=== PATIENT | male | born 1955 | race Caucasian/White ===

== ENCOUNTER → 2017-11-21 | Outpatient (CLI) | payer BC ==
--- NOTE | 2017-11-21 08:00 | US ---
EXAMINATION TYPE: US venous doppler duplex LE LT DATE OF EXAM: 11/21/2017 7:37 AM COMPARISON: NONE CLINICAL HISTORY: R60.0 Edema Left leg. Edema left leg for 1 year, getting worse within last month SIDE PERFORMED: left TECHNIQUE: The lower extremity deep venous system is examined utilizing real time linear array sonog frankie with graded compression, doppler sonography and color-flow sonography. VESSELS IMAGED: External Iliac Vein (EIV) Common Femoral Vein Deep Femoral Vein Greater Saphenous Vein * Femoral Vein Popliteal Vein Small Saphenous Vein * Proximal Calf Veins (* superficial vessels) Left Leg: No evidence of DVT as visualized. Complex anechoic area left popliteal fossa; 7.6 x 1.8 x 3 .9cm compatible with a popliteal cyst. IMPRESSION: 1. No ultrasound evidence deep venous thrombosis left lower extremity. 2. Left Popliteal cyst.
== END | disposition home or self-care (01) ==
LOC: RADUSWWP 07:09
PROVIDERS: ATTEND Family Medicine
DX: M71.22 Synovial cyst of popliteal space [Baker], left knee (principal)

== ENCOUNTER → 2018-05-18 | Outpatient (CLI) | payer BC ==
--- NOTE | 2018-05-19 08:03 | CTL ---
EXAMINATION TYPE: CT Low Dose Lung DATE OF EXAM ORDERED: 05/18/2018 HISTORY: Long-term tobacco use. Lung cancer screening CT DLP: [address] CTDI: 2.6 mGy Automated exposure control for dose reduction was used. SCREENING VISIT: Initial study COMPARISON: None TECHNIQUE: Low dose computed tomography scan was performed through the chest at 1 mm thick sections a nd reconstructed images in the coronal plane at [address] DIAGNOSTIC QUALITY: Satisfactory FINDINGS: LUNG NODULES: Present, detailed below: There is 6 x 5 mm Slightly irregular solid nodule right middle lobe axial image 178. There is 4 x 3 mm lingular solid axial image 170. There is 5 x 3 mm solid nodule anterior aspect right upper lobe axial image 107. There is 2 to 3 mm nodule lingula abutting the fissure axial image 189. LUNGS: COPD: Severity: Moderate Fibrosis: Severity: Moderate to severe biapical parenchymal scarring. Lymph nodes: No greater than 1 cm adenopathy Other findings: None BILATERAL PLEURAL SPACE: Effusion: None Calcification: None Thickening: Mild focal thickening right midlung lateral aspect on coronal images. Pneumothorax: None HEART: Heart Size: Normal Coronary calcification: None Pericardial effusion: None OTHER FINDINGS: Upper abdomen: None Bony thorax: Mild to moderate multilevel spurring centered in the mid thoracic spine Supraclavicular region: None Other: None IMPRESSION: Emphysematous change with scattered nodules measuring up to 6 x 5 mm as detailed above. FOLLOW UP CT CHEST RECOMMENDATION: Six-month follow-up low dose lung screening CT. CT LUNG RAD: Lung-Rad 3 Probably Benign
== END ==
LOC: RADCTMAIN 16:02
PROVIDERS: ATTEND Family Medicine
DX: Z12.2 Encounter for screening for malignant neoplasm of respiratory organs (principal); J43.9 Emphysema, unspecified; R91.8 Other nonspecific abnormal finding of lung field; Z87.891 Personal history of nicotine dependence

== ENCOUNTER → 2019-04-09 | Outpatient (CLI) | payer BC ==
--- NOTE | 2019-04-09 18:20 | CT ---
EXAMINATION TYPE: CT chest w con DATE OF EXAM: 04/09/2019 COMPARISON: 05/18/2018 HISTORY: Lung nodule CT DLP: 300.3 mGycm Automated exposure control for dose reduction was used. CONTRAST: CT scan of the chest is performed with IV Contrast, patient injected with 100 mL of Isovue 300. FINDINGS: LUNGS: Diffuse emphysematous changes are seen with no focal pneumonia, pleural effusion, or pneumotho rax. No overt failure. Biapical pleural thickening noted. There is a stable 5 x 3 mm nodule right upper lobe. There is a stable 4 x 3 mm left upper lobe lingular segment nodule. There is a stable 6 x 5 mm nodule right middle lobe. There is a stable 2 to 3 mm nodule lingular segment left upper lobe adjacent to the fissure. MEDIASTINUM: There are no greater than 1 cm hilar or mediastinal lymph nodes. No pericardial effusi on is seen. The heart is enlarged. OTHER: Hypertrophic and degenerative change spine. Nonspecific thickening of the left adrenal gland stable. There is an indeterminate 6 mm lesion in the dome of the liver left lobe unchanged from previ ous exam. IMPRESSION: 1. Diffuse emphysematous changes. 2. Stable pulmonary nodules unchanged from prior exam. Recommended continued documentation of stabili ty over 2 years. 3. Stable indeterminate lesion 6 mm too small to characterize dome of the liver
== END | disposition home or self-care (01) ==
LOC: RADCTMAIN 16:59
PROVIDERS: ATTEND Family Medicine
DX: J43.9 Emphysema, unspecified (principal); R91.1 Solitary pulmonary nodule
CPT/HCPCS: 71260; Q9967

== ENCOUNTER → 2019-12-28 | Outpatient (CLI) | payer BC ==
[2019-12-28 15:40] LABS: Appearance,Urine Clear (Clear); Bilirubin,Urine Negative (Negative); Blood,Urine Negative (Negative); Color,Urine Yellow; Glucose,Urine (UA) Negative (Negative); Ketones,Urine Negative (Negative); Leukocyte Esterase,Urine Negative (Negative); Nitrite,Urine Negative (Negative); PH, Urine 6.5 (5.0-8.0); Protein,Urine Negative (Negative); Specific Gravity,Urine 1.016 (1.001-1.035); Urobilinogen,Urine <2.0 mg/dL (<2.0)
[2019-12-28 15:41] LABS: Basophils % (A) 0 %; Eosinophils # (A) 0.1 k/uL (0-0.7); Eosinophils % (A) 1 %; HCT 49.8 % (39.0-53.0); HGB 15.8 gm/dL (13.0-17.5); Lymphocytes # (A) 1.3 k/uL (1.0-4.8); Lymphocytes % (A) 13 %; MCH 29.9 pg (25.0-35.0); MCHC 31.8 g/dL (31.0-37.0); MCV 94.1 fL (80.0-100.0); Mean Platelet Volume 7.7; Monocytes # (A) 0.6 k/uL (0-1.0); Monocytes % (A) 6 %; Neutrophils # (A) 7.4 k/uL (1.3-7.7); Neutrophils % (A) 76 %; Platelet Count 291 k/uL (150-450); RBC 5.29 m/uL (4.30-5.90); RDW 12.7 % (11.5-15.5); WBC 9.7 k/uL (3.8-10.6)
[2019-12-28 23:47] LABS: African American GFR (CKD) 93.1 (60.0-200.0); Albumin 4.7 g/dL (3.80-4.90); Albumin/Globulin Ratio 1.57 (1.60-3.17); Anion Gap 13.7 mmol/L (4.00-12.00); Carbon Dioxide 26.3 mmol/L (21.6-31.8); Non-African American GFR(CKD) 80.3 (60.0-200.0); Potassium 3.9 mmol/L (3.5-5.5); Total Bilirubin 0.8 mg/dL (0.2-1.2); Total Protein 7.7 g/dL (6.2-8.2)
== END | disposition home or self-care (01) ==
LOC: LABWHC1 13:43
PROVIDERS: ATTEND Psychiatry & Neurology Neurology
DX: G35 Multiple sclerosis (principal)
CPT/HCPCS: 36415; 80053; 81003; 85025

== ENCOUNTER 2020-11-20 10:48 | Inpatient (IN) | payer BC ==
[2020-11-20] MEDS ORDERED: ACETAMINOPHEN TAB 500 MG TAB PO STA (11:06)
[2020-11-20] MEDS ORDERED: methylPREDNISolone SOD SUCCI 125 MG/2 ML VIAL IV STA (11:06)
[2020-11-20] MEDS ORDERED: SODIUM CHLORIDE 0.9% 1,000 ML IV STA ×2 (11:06)
[2020-11-20] MEDS ORDERED: cefTRIAXone IN SWFI 1,000 MG/10 ML SYRINGE IVP STA (11:07)
--- NOTE | 2020-11-20 11:14 | ED ---
General Adult HPI - General Chief complaint: Recheck/Abnormal Lab/Rx Stated complaint: MS Exacerbation Time Seen by Provider: 11/20/20 10:57 Source: patient, RN notes reviewed, old records reviewed Mode of arrival: ambulatory Limitations: no limitations - History of Present Illness Initial comments: 65-year-old history of MS. Patient is unable to ambulate at baseline, he is able to stand and pivot but uses a wheelchair predominantly. He's had increased weakness today as well as fatigue. He is noted to be febrile at 103 upon arrival. He denies cough or dyspnea. Denies URI symptoms. Denies abdominal pain nausea vomiting. Denies dysuria or hematuria. He states he does have some difficulty urinating. He has been vaccinated against coronavirus approximately 3 or 4 weeks ago receiving his second vaccine. He denies a known exposure to coronavirus. - Related Data Home Medications Medication Instructions Recorded Confirmed Aspirin EC [Ecotrin Low Dose] 81 mg PO DAILY 11/20/20 11/20/20 Baclofen 10 mg PO 5XD 11/20/20 11/20/20 Cholecalciferol (Vitamin D3) 125 mcg PO DAILY 11/20/20 11/20/20 [Vitamin D3 (5000 Iu)] Furosemide [Lasix] 60 mg PO DAILY 11/20/20 11/20/20 Lubiprostone [Amitiza] 24 mcg PO BID 11/20/20 11/20/20 Magnesium Oxide [Mag-Ox] 250 mg PO DAILY 11/20/20 11/20/20 Multivitamins, Thera [Multivitamin 1 tab PO DAILY 11/20/20 11/20/20 (formulary)] Ocrevus(Unknown) 1 dose IV Q180D 11/20/20 11/20/20 Oxybutynin Chloride [Ditropan XL] 5 mg PO DAILY 11/20/20 11/20/20 Potassium Chloride ER [K-Dur 10] 10 meq PO DAILY 11/20/20 11/20/20 Allergies Allergy/AdvReac Type Severity Reaction Status Date / Time No Known Allergies Allergy Verified 11/20/20 12:10 Review of Systems ROS Statement: Those systems with pertinent positive or pertinent negative responses have been documented in the HPI. ROS Other: All systems not noted in ROS Statement are negative. Past Medical History Past Medical History: Musculoskeletal Disorder Additional Past Medical History / Comment(s): MS History of Any Multi-Drug Resistant Organisms: None Reported Past Surgical History: No Surgical Hx Reported Past Psychological History: No Psychological Hx Reported Smoking Status: Former smoker Past Alcohol Use History: Occasional Past Drug Use History: None Reported General Exam Limitations: no limitations General appearance: alert, in distress Head exam: Present: atraumatic, normocephalic Eye exam: Present: normal appearance, PERRL ENT exam: Present: mucous membranes dry Neck exam: Present: normal inspection. Absent: tenderness, meningismus Respiratory exam: Present: respiratory distress, rhonchi, decreased breath sounds Cardiovascular Exam: Present: normal rhythm, tachycardia GI/Abdominal exam: Present: soft, distended. Absent: tenderness, guarding, rebound Extremities exam: Present: pedal edema (Bilateral edema and erythema. He has skin breakdown at the first digit left foot with surrounding erythema. No purulence. No fluctuance.) Neurological exam: Present: alert, oriented X3, other (Strength throughout decreased, upper extremities are contracted) Psychiatric exam: Present: normal affect, normal mood Skin exam: Present: warm, dry, intact. Absent: cyanosis, diaphoretic Course Vital Signs 11/20/20 11/20/20 11/20/20 10:49 10:57 13:56 Temperature 103.1 F H 98.9 F Pulse Rate 129 H 82 Respiratory 22 18 Rate Blood Pressure 140/79 141/74 O2 Sat by Pulse 88 L 90 L 95 Oximetry EKG Findings - EKG Comments: EKG Findings:: EKG: Sinus tachycardia, rate of 127, TX interval 134, QRS duration 82, QTC [address] segment elevation. Baseline tremor artifact. Medical Decision Making - Medical Decision Making 65-year-old male with increased weakness history of MS. Patient found to be febrile 103 in the emergency department. He has chest x-ray which shows some fibrotic change, and no focal pneumonia. He has a leukocytosis of 15.9. Minimal lactic acid of 2.5. Coronavirus is negative. Urinalysis pending. He does have a bilateral lower extremity edema and some bilateral warmth as well as covered for cellulitis. Case discussed with Dr. Greco who will admit. Neurology placed on consult for MS exacerbation. - Lab Data Result diagrams: 11/20/20 11:30 11/20/20 11:30 Lab Results 05/24/21 05/24/21 05/24/21 Range/Units 11:30 11:30 11:30 WBC 15.9 H (3.8-10.6) k/uL RBC 4.64 (4.30-5.90) m/uL Hgb 14.5 (13.0-17.5) gm/dL Hct 42.1 (39.0-53.0) % MCV 90.6 (80.0-100.0) fL MCH 31.2 (25.0-35.0) pg MCHC 34.4 (31.0-37.0) g/dL RDW 12.7 (11.5-15.5) % Plt Count 247 (150-450) k/uL MPV 7.8 Neutrophils % 95 % Lymphocytes % 2 % Monocytes % 3 % Eosinophils % 1 % Basophils % 0 % Neutrophils # 15.0 H (1.3-7.7) k/uL Lymphocytes # 0.3 L (1.0-4.8) k/uL Monocytes # 0.4 (0-1.0) k/uL Eosinophils # 0.1 (0-0.7) k/uL Basophils # 0.0 (0-0.2) k/uL Sodium 137 (137-145) mmol/L Potassium 4.5 (3.5-5.1) mmol/L Chloride 103 (98-107) mmol/L Carbon Dioxide 25 (22-30) mmol/L Anion Gap 9 mmol/L BUN 23 H (9-20) mg/dL Creatinine 0.90 (0.66-1.25) mg/dL Est GFR (CKD-EPI)AfAm >90 (>60 ml/min/1.73 sqM) Est GFR (CKD-EPI)NonAf >90 (>60 ml/min/1.73 sqM) Glucose 97 (74-99) mg/dL Lactic Ac Sepsis Rflx Plasma Lactic Acid Waldemar (0.7-2.0) mmol/L Calcium 9.7 (8.4-10.2) mg/dL Total Bilirubin 0.7 (0.2-1.3) mg/dL AST 32 (17-59) U/L ALT 21 (4-49) U/L Alkaline Phosphatase 111 (38-126) U/L Total Protein 7.5 (6.3-8.2) g/dL Albumin 4.6 (3.5-5.0) g/dL Urine Color Yellow Urine Appearance Clear (Clear) Urine pH 7.5 (5.0-8.0) Ur Specific Disney 1.017 (1.001-1.035) Urine Protein Negative (Negative) Urine Glucose (UA) Negative (Negative) Urine Ketones 1+ H (Negative) Urine Blood Moderate H (Negative) Urine Nitrite Negative (Negative) Urine Bilirubin Negative (Negative) Urine Urobilinogen <2.0 (<2.0) mg/dL Ur Leukocyte Esterase Small H (Negative) Urine RBC >182 H (0-5) /hpf Urine WBC 7 H (0-5) /hpf Ur Squamous Epith Cells <1 (0-4) /hpf Urine Bacteria Rare H (None) /hpf Hyaline Casts 1 (0-2) /lpf Urine Mucus Rare H (None) /hpf Coronavirus (PCR) (Not Detectd) 11/20/20 11/20/20 11/20/20 Range/Units 11:30 11:30 11:51 WBC (3.8-10.6) k/uL RBC (4.30-5.90) m/uL Hgb (13.0-17.5) gm/dL Hct (39.0-53.0) % MCV (80.0-100.0) fL MCH (25.0-35.0) pg MCHC (31.0-37.0) g/dL RDW (11.5-15.5) % Plt Count (150-450) k/uL MPV Neutrophils % % Lymphocytes % % Monocytes % % Eosinophils % % Basophils % % Neutrophils # (1.3-7.7) k/uL Lymphocytes # (1.0-4.8) k/uL Monocytes # (0-1.0) k/uL Eosinophils # (0-0.7) k/uL Basophils # (0-0.2) k/uL Sodium (137-145) mmol/L Potassium (3.5-5.1) mmol/L Chloride (98-107) mmol/L Carbon Dioxide (22-30) mmol/L Anion Gap mmol/L BUN (9-20) mg/dL Creatinine (0.66-1.25) mg/dL Est GFR (CKD-EPI)AfAm (>60 ml/min/1.73 sqM) Est GFR (CKD-EPI)NonAf (>60 ml/min/1.73 sqM) Glucose (74-99) mg/dL Lactic Ac Sepsis Rflx Y Plasma Lactic Acid Waldemar 2.5 H* (0.7-2.0) mmol/L Calcium (8.4-10.2) mg/dL Total Bilirubin (0.2-1.3) mg/dL AST (17-59) U/L ALT (4-49) U/L Alkaline Phosphatase (38-126) U/L Total Protein (6.3-8.2) g/dL Albumin (3.5-5.0) g/dL Urine Color Urine Appearance (Clear) Urine pH (5.0-8.0) Ur Specific Disney (1.001-1.035) Urine Protein (Negative) Urine Glucose (UA) (Negative) Urine Ketones (Negative) Urine Blood (Negative) Urine Nitrite (Negative) Urine Bilirubin (Negative) Urine Urobilinogen (<2.0) mg/dL Ur Leukocyte Esterase (Negative) Urine RBC (0-5) /hpf Urine WBC (0-5) /hpf Ur Squamous Epith Cells (0-4) /hpf Urine Bacteria (None) /hpf Hyaline Casts (0-2) /lpf Urine Mucus (None) /hpf Coronavirus (PCR) Not Detected (Not Detectd) Disposition Clinical Impression: Exacerbation of multiple sclerosis, Fever, Cellulitis, UTI (urinary tract infection) Disposition: ADMITTED IP TO THIS [facility] Condition: Stable Is patient prescribed a controlled substance at d/c from ED?: No Decision to Admit Reason: Admit from EC Decision Date: 11/20/20 Decision Time: 13:14
--- NOTE | 2020-11-20 11:47 | XR ---
EXAMINATION TYPE: XR chest 1V portable DATE OF EXAM: 11/20/2020 COMPARISON: Chest x-ray 2011. Chest CT April 09, 2019. HISTORY: Fever. TECHNIQUE: Single frontal view of the chest is obtained. FINDINGS: There is no background chronic emphysematous and pulmonary fibrotic changes without suspic ious focal airspace opacity, pleural effusion, or pneumothorax seen bilaterally. The cardiac silhoue tte size is stable and mildly enlarged. The osseous structures are intact. IMPRESSION: Cardiomegaly along with chronic emphysematous and pulmonary fibrotic changes without acu te pulmonary process.
[2020-11-20 11:51] LABS: ALT 21 U/L (4-49); AST 32 U/L (17-59); African American GFR (CKD) >90 (>60 ml/min/1.73 sqM); Albumin 4.6 g/dL (3.5-5.0); Alkaline Phosphatase 111 U/L (38-126); Anion Gap 9 mmol/L; Blood Urea Nitrogen 23 mg/dL (9-20); Calcium 9.7 mg/dL (8.4-10.2); Carbon Dioxide 25 mmol/L (22-30); Chloride 103 mmol/L (98-107); Glucose 97 mg/dL (74-99); Non-African American GFR(CKD) >90 (>60 ml/min/1.73 sqM); Potassium 4.5 mmol/L (3.5-5.1); Sodium 137 mmol/L (137-145); Total Bilirubin 0.7 mg/dL (0.2-1.3); Total Protein 7.5 g/dL (6.3-8.2)
[2020-11-20 11:52] LABS: Basophils % (A) 0 %; Eosinophils # (A) 0.1 k/uL (0-0.7); Eosinophils % (A) 1 %; HCT 42.1 % (39.0-53.0); HGB 14.5 gm/dL (13.0-17.5); Lymphocytes # (A) 0.3 k/uL (1.0-4.8); Lymphocytes % (A) 2 %; MCH 31.2 pg (25.0-35.0); MCHC 34.4 g/dL (31.0-37.0); MCV 90.6 fL (80.0-100.0); Mean Platelet Volume 7.8; Monocytes # (A) 0.4 k/uL (0-1.0); Monocytes % (A) 3 %; Neutrophils % (A) 95 %; Platelet Count 247 k/uL (150-450); RBC 4.64 m/uL (4.30-5.90); RDW 12.7 % (11.5-15.5); WBC 15.9 k/uL (3.8-10.6)
[2020-11-20] MEDS ORDERED: FUROSEMIDE 10 MG/ML 2 ML VIAL IV STA (13:10)
[2020-11-20] MEDS ORDERED: VANCOMYCIN IV PER PHARMACY 1 EACH MISC MISCELLANE PRN (13:10)
[2020-11-20] MEDS ORDERED: NALOXONE 0.4 MG/ML 1 ML VIAL IV PRN (13:14)
[2020-11-20 14:12] LABS: Appearance,Urine Clear (Clear); Bacteria,Urine Rare /hpf; Bilirubin,Urine Negative (Negative); Blood,Urine Moderate (Negative); Color,Urine Yellow; Glucose,Urine (UA) Negative (Negative); Hyaline Casts,Urine 1 /lpf (0-2); Ketones,Urine 1+ (Negative); Leukocyte Esterase,Urine Small (Negative); Mucus,Urine Rare /hpf; Nitrite,Urine Negative (Negative); PH, Urine 7.5 (5.0-8.0); Protein,Urine Negative (Negative); RBC,Urine >182 /hpf (0-5); Specific Gravity,Urine 1.017 (1.001-1.035); Squamous Epithelial Cell,Urine <1 /hpf (0-4); Urobilinogen,Urine <2.0 mg/dL (<2.0); WBC,Urine 7 /hpf (0-5)
[2020-11-20] MEDS: VANCOMYCIN 1,500 MG in SODIUM CHLORIDE 0.9% 250 ML IVPB SCH (14:26)
--- NOTE | 2020-11-20 16:20 | P.CNNES ---
History of Present Illness Consult date: 11/20/20 Requesting physician: Haris Tobar Reason for Consult: MS exacerbation History of Present Illness: This is a 65-year-old gentleman with medical history of multiple sclerosis (diagnosed in 2011) who presented emergency department on 11/20/2020 for geralized weakness, fatigue and feeling warm. Patient is unable to ambulate at baseline uses and a powered wheelchair predominantly. He said for the last 3 weeks he is having the lower extremity edema and that's the worsening and then the today he went to work in which he looks up 4:00 in the morning this is usual time and then when he was at work he felt his whole body was weak fatigue and unable to move his that extremities. Patient uses a powered wheelchair and able to maneuver with his hands. Today he noticed that he could not move his upper extremities. Per the patient as she felt he had increased tone that is worse than baseline of the upper extremity. Patient denies any visual disturbance, difficulty getting his words out, swallowing as mentioned earlier the patient felt warm. Patient denies of headache, nausea or vomiting. Patient denies any sick contacts. Per the patient his lower extremities are warm and seem red. Currently he felt strength is better than prior to initial presentation. Regarding his baseline strength he has more strength of the upper extremity than the lower and mostly it's the distal upper extremities while the lower he has minimal movement. He'll able to move his toes but not much of his strength in the lower extremities at. He has numbness tingling of bilateral upper and lower extremity but mostly it slower than the upper. He is supported standing up on the chair. Patient is on Ocrevus for his hx of MS and last was in September 04 2020. He follows-up with Dr. Anthony Antonio ([facility] His other home medication are baclofen 10mg, ASA 81mg, Vitamin D3 5000IU, Oxybutynin, Lubiprostone. Some of the workup in the hospital consisted of: Initial vitals: Blood pressure of 140/79, heart rate of 129, temperature of 103.1 Fahrenheit oral, respiratory of 22 and pulse ox of 88% room air. Initial white blood cells 15.9 and it's predominantly neutrophilic. The basic chemistry panel was significant is a plasma lactic vein which was 2.5 otherwise was unremarkable. The calcium was 9.7, serum glucose was 97, AST and ALT are normal. Urinalysis nitrate was negative, leukocyte esterase was small, urine white blood cell as 7 and urine bacteria is rare. Review of Systems Review of system: The 12 point system was reviewed and apparent positive and negative per HPI. Past Medical History Past Medical History: Musculoskeletal Disorder Additional Past Medical History / Comment(s): MS History of Any Multi-Drug Resistant Organisms: None Reported Past Surgical History: No Surgical Hx Reported Past Psychological History: No Psychological Hx Reported Smoking Status: Former smoker Past Alcohol Use History: Occasional Past Drug Use History: None Reported Medications and Allergies Home Medications Medication Instructions Recorded Confirmed Type Aspirin EC [Ecotrin Low Dose] 81 mg PO DAILY 11/20/20 11/20/20 History Baclofen 10 mg PO 5XD 11/20/20 11/20/20 History Cholecalciferol (Vitamin D3) 125 mcg PO DAILY 11/20/20 11/20/20 History [Vitamin D3 (5000 Iu)] Furosemide [Lasix] 60 mg PO DAILY 11/20/20 11/20/20 History Lubiprostone [Amitiza] 24 mcg PO BID 11/20/20 11/20/20 History Magnesium Oxide [Mag-Ox] 250 mg PO DAILY 11/20/20 11/20/20 History Multivitamins, Thera [Multivitamin 1 tab PO DAILY 11/20/20 11/20/20 History (formulary)] Ocrevus(Unknown) 1 dose IV Q180D 11/20/20 11/20/20 History Oxybutynin Chloride [Ditropan XL] 5 mg PO DAILY 11/20/20 11/20/20 History Potassium Chloride ER [K-Dur 10] 10 meq PO DAILY 11/20/20 11/20/20 History Allergies Allergy/AdvReac Type Severity Reaction Status Date / Time No Known Allergies Allergy Verified 11/20/20 12:10 Physical Examination - Vital Signs Vital Signs: Vital Signs Temp Pulse Resp BP Pulse Ox 11/20/20 13:56 98.9 F 82 18 141/74 95 11/20/20 10:57 90 L 11/20/20 10:49 103.1 F H 129 H 22 140/79 88 L Intake and Output 11/20/20 11/20/20 11/20/20 06:59 14:59 22:59 Other: Weight 77.111 kg GENERAL: The patient is lying in bed and is not in acute distress. CHEST: The heart rate is regular rate rhythm. No murmurs to auscultation. No carotid bruit bilaterally. LUNG: Clear to auscultation bilaterally no wheezing noted throughout. Not labored breathing. ABDOMEN/GI: Bowel sounds present in all 4 quadrants. No tenderness to palpation throughout. INTEGUMANTARY: Significant edema of bilateral lower extremities about proximal calf, erythematous and warm to touch. NEUROLOGICAL: Higher mental function: The patient is awake, alert, oriented to self, place and time. Patient is following commands. No aphasia and no neglect. Cranial nerves: The pupils are round, equal and reactive to light and accommodation. Visual new are full to confrontation throughout. Extraocular movement is intact no nystagmus is noted. Facial sensation is normal to touch throughout. The facial strength is normal throughout. Hearing is normal bilaterally to hand rub. Tongue is midline and moved [id number] without any difficulty. No dysarthria is noted. Shoulder shrug is normal bilaterally. Motor: Gait is deferred. The strength is upper extremities is able to lift upp er extremities above gravity (distal strength > proximal). Hand director of in service education are 4-/5. Finger dorsiflexion are weak (baseline). Wrist dorsiflexion are 3/5 bilaterally. Lower extremities are 1 proximally. While toes are dorsiflexion/plantarflexion are 3/5. Increase tone in bilateral upper and lower Cerebellum: Unable to assess. Sensation: Sensation is normal in upper while lower he stated decreased and seemed from distal knees. Reflexes (right/left): 2+ throughout uppers while lower could not assess because of patient's pain. Plantars are upgoing bilaterally. Results Oliver virus PCR was not detected. - Laboratory Findings CBC and BMP: 11/20/20 11:30 11/20/20 11:30 Abnormal Lab Findings: Abnormal Labs 11/20/20 11/20/20 11/20/20 11:30 11:30 11:30 WBC 15.9 H Neutrophils # 15.0 H Lymphocytes # 0.3 L BUN 23 H Plasma Lactic Acid Waldemar Urine Ketones 1+ H Urine Blood Moderate H Ur Leukocyte Esterase Small H Urine RBC >182 H Urine WBC 7 H Urine Bacteria Rare H Urine Mucus Rare H 11/20/20 11:30 WBC Neutrophils # Lymphocytes # BUN Plasma Lactic Acid Waldemar 2.5 H* Urine Ketones Urine Blood Ur Leukocyte Esterase Urine RBC Urine WBC Urine Bacteria Urine Mucus Assessment and Plan Assessment: Generalized weakness and fatigue with elevated fever. Seems pseudo-MS exacerbation from underlying cellulitis. Acute cellulitis of bilateral lower extremities History of multiple sclerosis Plan: In the ED the patient was given 125 mg of Solu-Medrol IV once. I ordered MRI of the brain and the cervical region but patient wants to think about getting the test by tomorrow. If there is any new lesion I'll start the patient on IV steroids for 3-5 days. For now I ordered CT of the head. I consulted physical therapy and occupational therapy. Patient was started on ceftriaxone and vancomycin by the ED team. Infection disease team was consulted. The plan is discussed with the patient and his (Jemima) who is at bedside. Thank you for the consultation. Joseluis Oquendo MD Neuro-Hospitalist Time with Patient: Greater than 30
--- NOTE | 2020-11-20 16:31 | CT ---
EXAMINATION TYPE: CT brain wo con DATE OF EXAM: 11/20/2020 HISTORY: Weakness, history of MS. CT DLP: 1275.4 mGycm. Automated Exposure Control for Dose Reduction was Utilized. TECHNIQUE: CT scan of the head is performed without contrast. COMPARISON: None. FINDINGS: There is no acute intracranial hemorrhage or midline shift identified. There is mild to m oderate diffuse ventricular and sulcal prominence consistent with diffuse age-related cerebral atroph y. There is mild low-attenuation in the periventricular white matter consistent with chronic small v essel ischemic change in patient of this age.. The globes are intact and the visualized sinuses are clear. IMPRESSION: No acute intracranial hemorrhage or midline shift. There is mild to moderate diffuse ag e-related cerebral atrophy and mild chronic small vessel ischemic change noted.
[2020-11-20] MEDS: traMADol 50 MG TAB PO PRN (18:49)
--- NOTE | 2020-11-20 20:52 | P.HPIM ---
History of Present Illness This is a pleasant 65 years old male with past medical history of multiple sclerosis. With resultant weakness in the lower extremity, he is been bound for the last 3 years. He is a patient of Dr. Galarza. 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 He denies chest pain or dyspnea or coughing. No abdominal pain. No nausea vomiting. No diarrhea. No significant urinary complaints Patient is bilateral leg swelling, also complained from constipation Patient has a fever of 103.1 on admission, currently heart rate is 82, breathing rate is 18 and blood pressure 141/74, he is saturating 90% in 2 L oxygen via nasal cannula Labs showed leukocytosis of 15.9 K, rest of CBC, BMP and liver enzymes are unremarkable. Lactic acid slightly up 2.5. Urinalysis is suspicious for infection. Coronary liver is not detected EKG showing sinus tachycardia at [address]-T changes Chest x-ray: No acute process. Per report from radiology Department: cardiomegaly along with chronic emphysematous and pulmonary fibrotic changes without acute pulmonary process Patient is a started on IV vancomycin and ceftriaxone Review of Systems CONSTITUTIONAL: No fever, no malaise, no fatigue. HEENT: No recent visual problems or hearing problems. Denied any sore throat. CARDIOVASCULAR: No orthopnea, PND, no palpitations, no syncope. PULMONARY: No shortness of breath, no cough, no hemoptysis. GASTROINTESTINAL: No diarrhea, no nausea, no vomiting, no abdominal pain. Normoactive bowel sounds. NEUROLOGICAL: No headaches, no weakness, no numbness. HEMATOLOGICAL: Denies any bleeding or petechiae. GENITOURINARY: Denies any burning micturition, frequency, or urgency. MUSCULOSKELETAL/RHEUMATOLOGICAL: Denies any joint pain, swelling, or any muscle pain. ENDOCRINE: Denies any polyuria or polydipsia. Past Medical History Past Medical History: Musculoskeletal Disorder Additional Past Medical History / Comment(s): MS History of Any Multi-Drug Resistant Organisms: None Reported Past Surgical History: No Surgical Hx Reported Past Psychological History: No Psychological Hx Reported Smoking Status: Former smoker Past Alcohol Use History: Occasional Past Drug Use History: None Reported Medications and Allergies Home Medications Medication Instructions Recorded Confirmed Type Aspirin EC [Ecotrin Low Dose] 81 mg PO DAILY 05/24/21 05/24/21 History Baclofen 10 mg PO 5XD 11/20/20 11/20/20 History Cholecalciferol (Vitamin D3) 125 mcg PO DAILY 11/20/20 11/20/20 History [Vitamin D3 (5000 Iu)] Furosemide [Lasix] 60 mg PO DAILY 11/20/20 11/20/20 History Lubiprostone [Amitiza] 24 mcg PO BID 11/20/20 11/20/20 History Magnesium Oxide [Mag-Ox] 250 mg PO DAILY 11/20/20 11/20/20 History Multivitamins, Thera [Multivitamin 1 tab PO DAILY 11/20/20 11/20/20 History (formulary)] Ocrevus(Unknown) 1 dose IV Q180D 11/20/20 11/20/20 History Oxybutynin Chloride [Ditropan XL] 5 mg PO DAILY 11/20/20 11/20/20 History Potassium Chloride ER [K-Dur 10] 10 meq PO DAILY 11/20/20 11/20/20 History Allergies Allergy/AdvReac Type Severity Reaction Status Date / Time No Known Allergies Allergy Verified 11/20/20 12:10 Physical Exam Vitals: Vital Signs Temp Pulse Resp BP Pulse Ox 11/20/20 13:56 98.9 F 82 18 141/74 95 11/20/20 10:57 90 L 11/20/20 10:49 103.1 F H 129 H 22 140/79 88 L Intake and Output 11/19/20 11/20/20 11/20/20 22:59 06:59 14:59 Other: Weight 77.111 kg GENERAL: The patient is alert and oriented x3, not in any acute distress. Well developed, well nourished. HEENT: Pupils are round and equally reacting to light. EOMI. No scleral icterus. No conjunctival pallor. Normocephalic, atraumatic. No pharyngeal erythema. No thyromegaly. CARDIOVASCULAR: S1 and S2 present. No murmurs, rubs, or gallops. PULMONARY: Chest is clear to auscultation, no wheezing or crackles. ABDOMEN: Soft, nontender, nondistended, normoactive bowel sounds. No palpable organomegaly. MUSCULOSKELETAL: No joint swelling or deformity. EXTREMITIES: No cyanosis, clubbing, or pedal edema. NEUROLOGICAL: Gross neurological examination did not reveal any focal deficits. SKIN: No rashes. No petechiae Results CBC & Chem 7: 11/20/20 11:30 11/20/20 11:30 Labs: Abnormal Lab Results - Last 24 Hours (Table) 11/20/20 11/20/20 11/20/20 Range/Units 11:30 11:30 11:30 WBC 15.9 H (3.8-10.6) k/uL Neutrophils # 15.0 H (1.3-7.7) k/uL Lymphocytes # 0.3 L (1.0-4.8) k/uL BUN 23 H (9-20) mg/dL Plasma Lactic Acid Waldemar 2.5 H* (0.7-2.0) mmol/L Assessment and Plan Assessment: Acute urinary tract infection, possible pyelonephritis Sepsis, with fever leukocytosis Generalized weakness secondary to above psuod-MS exacerbation secondary to above Bilateral leg swelling secondary to disuse Plan: This is a pleasant 65 years old male who presents with UTI/pyelonephritis. Start the patient on ceftriaxone. Follow-up urine culture. Check renal ultrasound. Check bladder scan Neurologist follow-up the case for MS exacerbation also consult infectious disease team check ultrasound of the legs to rule out DVT Labs and medication were reviewed.. Continue same treatment. Continue with symptomatic treatment. Resume home medication. Monitor lytes and vitals. DVT and GI prophylaxis. Further recommendations depends on the clinical course of the patient DVT prophylaxis: Subcutaneous heparin GI Prophylaxis: Pepcid PT/OT: Pending Prognosis is guarded
--- NOTE | 2020-11-20 23:47 | US ---
EXAMINATION TYPE: US venous doppler duplex LE DATE OF EXAM: 11/20/2020 11:26 PM COMPARISON: US venous doppler duplex LE Left CLINICAL HISTORY: Rule out DVT. Swelling. No hx of DVT. Patient takes baby aspirin. SIDE PERFORMED: Bilateral TECHNIQUE: The lower extremity deep venous system is examined utilizing real time linear array sonog frankie with graded compression, doppler sonography and color-flow sonography. VESSELS IMAGED: Common Femoral Vein Deep Femoral Vein Greater Saphenous Vein * Femoral Vein Popliteal Vein Small Saphenous Vein * Proximal Calf Veins (* superficial vessels) Right Leg: No evidence of DVT in veins imaged at this time Left Leg: Color defect seen, possible due to swelling versus chronic thrombus. Right CFV does not agusto ear to completely compress. Hypoechoic area with hyperechoic center seen within the left groin: 2.1 x 1.7 x 1.3 cm. IMPRESSION: There is evidence for some chronic deep vein thrombosis in the left femoral vein. No evidence of deep vein thrombosis in the right leg.
[2020-11-21] MEDS: FAMOTIDINE 20 MG/2 ML VIAL IV SCH ×2 (00:51→09:30)
[2020-11-21] MEDS: HEPARIN SODIUM,PORCINE/PF 5,000 UNIT/0.5 ML SYRINGE SQ SCH ×3 (00:52→20:01)
[2020-11-21] MEDS: BACLOFEN 10 MG TAB PO SCH ×6 (00:52→23:14)
[2020-11-21] MEDS: ACETAMINOPHEN TAB 325 MG TAB PO PRN ×3 (00:53→19:06)
--- NOTE | 2020-11-21 01:51 | US ---
EXAMINATION TYPE: US renals and bladder DATE OF EXAM: 11/20/2020 COMPARISON: NONE CLINICAL HISTORY: uti. UTI per order. EXAM MEASUREMENTS: Right Kidney: 9.7 x 4.7 x 4.3 cm Left Kidney: 11.0 x 5.7 x 6.0 cm Limited due to patient positioning. Right Kidney: Cortex appears thin. Hyperechoic focus seen: 0.4 x 0.5 x 0.3 cm. Left Kidney: Hyperechoic focus seen: 0.7 x 1.0 x 0.5 cm. Bladder: Appears to be anechoic. Bilateral Jets seen: Yes IMPRESSION: There is evidence for nonobstructing 3 mm calculus lower pole right kidney. No renal obstruction. Mil d renal atrophy noted.
[2020-11-21] MEDS: VANCOMYCIN 1,500 MG in SODIUM CHLORIDE 0.9% 250 ML IVPB SCH ×2 (02:09→15:42)
[2020-11-21] MEDS: ASPIRIN 81 MG PO SCH (09:30)
[2020-11-21] MEDS: OXYBUTYNIN XL 5 MG TAB.ER.24 PO SCH (09:30)
[2020-11-21] MEDS: CHOLECALCIFEROL 25 MCG (1000 IU) TABLET PO SCH (09:30)
[2020-11-21 10:22] LABS: HCT 38.9 % (39.6-50.0); HGB 12.6 g/dL (13.0-17.0); MCH 30.1 pg (27.0-32.0); MCHC 32.4 g/dL (32.0-37.0); MCV 93.1 fL (80.0-97.0); Mean Platelet Volume 10.8 fL (9.5-12.2); Platelet Count 206 X 10*3/uL (140-440); RBC 4.18 X 10*6/uL (4.40-5.60); RDW 13.4 % (11.5-14.5); WBC 19.22 X 10*3/uL (4.50-10.00)
[2020-11-21 10:56] LABS: Basophils # (A) 0.02 X 10*3/uL (0.00-0.10); Basophils % (A) 0.1 %; Eosinophils # (A) 0 X 10*3/uL (0.04-0.35); Eosinophils % (A) 0 %; Lymphocytes # (A) 0.27 X 10*3/uL (0.90-5.00); Lymphocytes % (A) 1.4 %; Monocytes # (A) 0.78 X 10*3/uL (0.20-1.00); Monocytes % (A) 4.1 %; Neutrophils # (A) 18.05 X 10*3/uL (1.80-7.70); Neutrophils % (A) 93.9 %
[2020-11-21] MEDS ORDERED: LORazepam 2 MG/ML INJ IV STA (13:35)
--- NOTE | 2020-11-21 13:46 | P.PN ---
Subjective This is a pleasant 65 years old male with past medical history of multiple sclerosis. With resultant weakness in the lower extremity, he is been bound for the last 3 years. He is a patient of Dr. Galarza. 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 He denies chest pain or dyspnea or coughing. No abdominal pain. No nausea vomiting. No diarrhea. No significant urinary complaints Patient is bilateral leg swelling, also complained from constipation Patient has a fever of 103.1 on admission, currently heart rate is 82, breathing rate is 18 and blood pressure 141/74, he is saturating 90% in 2 L oxygen via nasal cannula Labs showed leukocytosis of 15.9 K, rest of CBC, BMP and liver enzymes are unremarkable. Lactic acid slightly up 2.5. Urinalysis is suspicious for infection. Coronary liver is not detected EKG showing sinus tachycardia at [address]-T changes Chest x-ray: No acute process. Per report from radiology Department: cardiomegaly along with chronic emphysematous and pulmonary fibrotic changes without acute pulmonary process Patient is a started on IV vancomycin and ceftriaxone 11/21/2020 Patient is awake, no specific complaint however he states he still feels generally weak with no significant improvement No urinary symptoms. He has some loose stool. He still has bilateral leg swelling, redness and warmth suspicious for bilateral leg cellulitis. On admission he had fever of 100.3, currently is afebrile, not show leukocytosis of 19 K. Blood culture was Positive for hemolytic strep test 2, patient is currently covered with ceftriaxone and IV vancomycin when infectious disease team on the case. Patient currently also on normal sinus 75 mL/h. We will add Lasix for his leg swelling. Ultrasound of the leg showing no DVT of the right leg and possible chronic DVT in the left leg. Patient is currently covered with subcutaneous heparin We going to consult hematology service given he is at risk factor for further DVT to help with management of anticoagulation. Also he has some immature granulocyte but mostly thus related to his infectious process. Review of Systems CONSTITUTIONAL: No fever, no malaise, no fatigue. HEENT: No recent visual problems or hearing problems. Denied any sore throat. CARDIOVASCULAR: No orthopnea, PND, no palpitations, no syncope. PULMONARY: No shortness of breath, no cough, no hemoptysis. GASTROINTESTINAL: No diarrhea, no nausea, no vomiting, no abdominal pain. Normoactive bowel sounds. NEUROLOGICAL: No headaches, no weakness, no numbness. Active Medications Generic Name Dose Route Start Last Admin Trade Name Freq PRN Reason Stop Dose Admin Acetaminophen 650 mg 11/20/20 13:14 11/21/20 09:30 Acetaminophen Tab 325 Mg Tab PO 650 mg Q6HR PRN Administration Mild Pain or Fever > 100.5 Aspirin 81 mg 11/21/20 09:00 11/21/20 09:30 Aspirin 81 Mg PO 81 mg DAILY ALEX Administration Baclofen 10 mg 11/21/20 00:00 11/21/20 09:30 Baclofen 10 Mg Tab PO 10 mg 5XD ALEX Administration Cholecalciferol 125 mcg 11/21/20 09:00 11/21/20 09:30 Cholecalciferol 25 Mcg (1000 Iu) Tablet PO 125 mcg DAILY ALEX Administration Famotidine 20 mg 11/20/20 21:00 11/21/20 09:30 Famotidine 20 Mg/2 Ml Vial IV 20 mg Q12HR ALEX Administration Heparin Sodium (Porcine) 5,000 unit 11/20/20 21:00 11/21/20 09:30 Heparin Sodium,Porcine/Pf 5,000 Unit/0.5 Ml Syringe SQ 5,000 unit Q12HR ALEX Administration Vancomycin HCl 1,500 mg/ 250 mls @ 125 mls/hr 11/20/20 14:00 11/21/20 02:09 Sodium Chloride IVPB 125 mls/hr Q12H ALEX Administration Ceftriaxone Sodium 2 gm/ 50 mls @ 100 mls/hr 11/21/20 01:00 11/21/20 01:08 Sodium Chloride IVPB 100 mls/hr Q24H ALEX Administration Naloxone HCl 0.2 mg 11/20/20 13:14 Naloxone 0.4 Mg/Ml 1 Ml Vial IV Q2M PRN Opioid Reversal Oxybutynin Chloride 5 mg 11/21/20 09:00 11/21/20 09:30 Oxybutynin Xl 5 Mg Tab.Er.24 PO 5 mg DAILY ALEX Administration Tramadol HCl 50 mg 11/20/20 18:35 11/20/20 18:49 Tramadol 50 Mg Tab PO 50 mg QID PRN Administration Breakthrough Pain Objective - Vital Signs Vital signs: Vital Signs Temp 98.7 F 11/21/20 08:00 Pulse 87 11/21/20 08:00 Resp 16 11/21/20 08:00 BP 128/86 11/21/20 08:00 Pulse Ox 92 L 11/21/20 02:11 Intake & Output 11/20/20 11/21/20 11/21/20 18:59 06:59 18:59 Output Total 500 900 Balance -500 -900 Weight 77.111 kg 77.111 kg Output: Urine 500 900 Other: Voiding Method Urinal External Catheter # Voids 2 - Labs CBC & Chem 7: 11/21/20 05:57 11/20/20 11:30 Labs: Abnormal Lab Results - Last 24 Hours (Table) 11/20/20 11/21/20 Range/Units 11:30 05:57 WBC 19.22 H (4.50-10.00) X 10*3/uL RBC 4.18 L (4.40-5.60) X 10*6/uL Hgb 12.6 L (13.0-17.0) g/dL Hct 38.9 L (39.6-50.0) % Immature Gran # 0.10 H (0.00-0.04) X 10*3/uL Neutrophils # 18.05 H (1.80-7.70) X 10*3/uL Lymphocytes # 0.27 L (0.90-5.00) X 10*3/uL Eosinophils # 0 L (0.04-0.35) X 10*3/uL Urine Ketones 1+ H (Negative) Urine Blood Moderate H (Negative) Ur Leukocyte Esterase Small H (Negative) Urine RBC >182 H (0-5) /hpf Urine WBC 7 H (0-5) /hpf Urine Bacteria Rare H (None) /hpf Urine Mucus Rare H (None) /hpf Microbiology - Last 24 Hours (Table) 11/20/20 11:30 Blood Culture Gram Stain - Preliminary Blood Blood Culture - Preliminary Beta Hemolytic Strep Group G 11/20/20 11:30 Blood Culture Gram Stain - Preliminary Blood Blood Culture - Preliminary Beta Hemolytic Strep Group G 11/20/20 11:35 Urine Culture - Preliminary Urine,Voided 11/20/20 11:30 Blood Culture - Final Blood 11/20/20 11:30 Blood Culture - Final Blood Assessment and Plan Assessment: Bilateral leg cellulitis Streptococcus septicemia Acute urinary tract infection, secondary to right kidney stone3 mm Chronic left leg DVT Sepsis, with fever leukocytosis Generalized weakness secondary to above psuod-MS exacerbation secondary to above Bilateral leg swelling secondary to disuse Plan: This is a pleasant 65 years old male who presents with UTI/pyelonephritis. Start the patient on ceftriaxone. Follow-up urine culture. Follow-up blood culture for the results Consults infectious disease and follow-up recommendation. Consult hematology service Neurologist follow-up the case for MS exacerbation also consult infectious disease team check ultrasound of the legs to rule out DVT Labs and medication were reviewed.. Continue same treatment. Continue with symptomatic treatment. Resume home medication. Monitor lytes and vitals. DVT and GI prophylaxis. Further recommendations depends on the clinical course of the patient DVT prophylaxis: Subcutaneous heparin GI Prophylaxis: Pepcid PT/OT: Pending Prognosis is guarded
[2020-11-21 15:32] LABS: African American GFR (CKD) 92.4 (60.0-200.0); Anion Gap 10.5 mmol/L (4.00-12.00); Calcium 8.2 mg/dL (8.7-10.3); Carbon Dioxide 21.5 mmol/L (21.6-31.8); Non-African American GFR(CKD) 79.7 (60.0-200.0)
--- NOTE | 2020-11-21 16:15 | MR ---
EXAMINATION TYPE: MR brain/cspine wo/w DATE OF EXAM: 11/21/2020 COMPARISON: CT brain 11/20/2020 HISTORY: Weakness in arms, hands, and legs. History of MS. TECHNIQUE: Multiplanar, multisequence images of the brain and brainstem and cervical spine is performed without and with IV contrast, utilizing 7.5 mL intravenous Gadavist . FINDINGS: Brain MRI: Diffusion weighted images demonstrate no evidence of a recent infarct or other diffusion a bnormality, there is T2 shine through present. There is no extra-axial fluid collection. There is c onfluent and scattered periventricular, pericallosal, subcortical white matter hyperintensities on in version recovery T2-weighted sequences, Marie's fingers are noted in the pericallosal location, sagi ttal image #26 and 25. Largest focus in the periventricular location at the level of the occipital ho rn on the right measures approximately 11 mm in cephalad to caudal mention, sagittal image 27 x 12 mm in AP dimension on axial image 17 x 8 mm in transverse dimension The ventricular system and cisterna l spaces are normal in size and appearance. The brain volume is age appropriate. Midline structures demonstrate normal morphology with exception of some minimal inferior cerebellar t onsillar ectopia. The craniocervical junction appears within normal limits. Post contrast images de monstrate no abnormal enhancement. The dural venous sinuses appear patent. The visualized sinuses are remarkable for inflammatory change in ethmoid air cells, mucosal thickening in the frontal sinus and the globes are intact. IMPRESSION: Correlate for multiple sclerosis. No enhancing plaque evident. Cervical spine MRI: Cervical vertebral bodies show preserved height and alignment. There is spondylosis present at C5-6, C6-7 with associated loss of disc height. Endplate discogenic marrow signal changes are present. Ther e is no evident spinal stenosis. There is some artifact on the exam. Sagittal images of the cervical cord shows some questionable incr eased signal, this is not confirmed on the FLAIR images, axial images do show abundant artifact. Mult ilevel foraminal encroachment is present due to uncovertebral joint hypertrophy greatest on the left at C4-5, bilaterally at C5-6 and C6-7. At C5-6 and C6-7 posterior extension endplate disc complexes c auses mild anterior mass effect on the thecal sac. No abnormal enhancement following contrast adminis tration. IMPRESSION: Degenerative disc disease and multilevel foraminal encroachment. Extensive artifact thoug ht present, no definitive abnormal cord signal.
--- NOTE | 2020-11-21 17:35 | P.PN ---
Subjective Progress Note Date: 11/21/20 The patient was seen at bedside he stated he does not feel much improvement in strength. Denies visual disturbance, difficulty getting his words outs. Objective - Vital Signs Vital signs: Vital Signs Temp 98.7 F 11/21/20 08:00 Pulse 87 11/21/20 08:00 Resp 16 11/21/20 08:00 BP 128/86 11/21/20 08:00 Pulse Ox 92 L 11/21/20 02:11 Intake & Output 11/20/20 11/21/20 11/21/20 18:59 06:59 18:59 Output Total 500 900 Balance -500 -900 Weight 77.111 kg 77.111 kg Output: Urine 500 900 Other: Voiding Method Urinal External Catheter # Voids 2 - Exam GENERAL: The patient is lying in bed and is not in acute distress. INTEGUMANTARY: Significant edema of bilateral lower extremities about proximal calf, erythematous and warm to touch. NEUROLOGICAL: Higher mental function: The patient is awake, alert, oriented to self, place and time. Patient is following commands. No aphasia and no neglect. Cranial nerves: The pupils are round, equal and reactive to light and accommodation. Visual new are full to confrontation throughout. Extraocular movement is intact no nystagmus is noted. Facial sensation is normal to touch throughout. The facial strength is normal throughout. Hearing is normal bilaterally to hand rub. Tongue is midline and moved [id number] without any difficulty. No dysarthria is noted. Shoulder shrug is normal bilaterally. Motor: Gait is deferred. The strength is upper extremities is able to lift upper extremities above gravity (distal strength > proximal). Hand retail manager in training are 4- /5. Finger dorsiflexion are weak (baseline). Wrist dorsiflexion are 3/5 bilaterally. Lower extremities are 1 proximally. While toes are dorsiflexion/plantarflexion are 3/5. Increase tone in bilateral upper and lower Cerebellum: Unable to assess. Sensation: Sensation is normal in upper while lower he stated decreased and se emed from distal knees. Reflexes (right/left): 2+ throughout uppers while lower could not assess because of patient's pain. Plantars are upgoing bilaterally. - Labs CBC & Chem 7: 11/21/20 05:57 11/21/20 05:57 Labs: Abnormal Lab Results - Last 24 Hours (Table) 11/20/20 11/21/20 Range/Units 11:30 05:57 WBC 19.22 H (4.50-10.00) X 10*3/uL RBC 4.18 L (4.40-5.60) X 10*6/uL Hgb 12.6 L (13.0-17.0) g/dL Hct 38.9 L (39.6-50.0) % Immature Gran # 0.10 H (0.00-0.04) X 10*3/uL Neutrophils # 18.05 H (1.80-7.70) X 10*3/uL Lymphocytes # 0.27 L (0.90-5.00) X 10*3/uL Eosinophils # 0 L (0.04-0.35) X 10*3/uL Urine Ketones 1+ H (Negative) Urine Blood Moderate H (Negative) Ur Leukocyte Esterase Small H (Negative) Urine RBC >182 H (0-5) /hpf Urine WBC 7 H (0-5) /hpf Urine Bacteria Rare H (None) /hpf Urine Mucus Rare H (None) /hpf Microbiology - Last 24 Hours (Table) 11/20/20 11:30 Blood Culture Gram Stain - Preliminary Blood Blood Culture - Preliminary Beta Hemolytic Strep Group G 11/20/20 11:30 Blood Culture Gram Stain - Preliminary Blood Blood Culture - Preliminary Beta Hemolytic Strep Group G 11/20/20 11:35 Urine Culture - Preliminary Urine,Voided 11/20/20 11:30 Blood Culture - Final Blood 11/20/20 11:30 Blood Culture - Final Blood Assessment and Plan Assessment: Generalized weakness and fatigue with elevated fever. Seems pseudo-MS exacerbation from underlying infection (cellulitis/UTI) Acute cellulitis of bilateral lower extremities Acute urinary tract infection History of multiple sclerosis Plan: CT head is reported as No acute intracranial hemorrhage or midline shift. There is mild to moderate diffuse age related cerebral atrophy and mild chronic small vessel ischemic change noted. MRI brain w/ and w/o is reported as correlated for multiple sclerosis. No en hancing plaque evident. MRI Cervical spine s/ and w/o: It is reported as Degenerative disc disease and multilevel foraminal enroachment. Extensive artifact throughout present. No definitive abnormal cord signal. Even though the patient has no new lesion evident on the MRI will start the patient on prophylactic Steroid since he had improvement while in the ED upon receiving 125mg once. Will place on IV Solu-Medrol 500mg every 12 hour for 3-5 days (spoke with primary team and Dr. Greco stated there should be no issues with it, especially with his current lower extremity cellulitis with edema). Physical therapy and occupational therapy. Patient is on ceftriaxone and vancomycin. Infection disease team was consulted. I started the patient on Protonix IV bid since on IV steroid. Will deer management of sugar control to the primary team. The plan is discussed with the patient's nurse and his (Jemima) who is at bedside. Joseluis Oquendo MD Neuro-Hospitalist Time with Patient: Less than 30
[2020-11-21] MEDS: PANTOPRAZOLE 40 MG/10 ML VIAL IVP SCH (18:05)
[2020-11-21] MEDS: FAMOTIDINE 20 MG TAB PO SCH (20:01)
[2020-11-21] MEDS ORDERED: methylPREDNISolone SOD SUCCI 125 MG/2 ML VIAL IV SCH (21:00)
--- NOTE | 2020-11-21 22:20 | P.CONS ---
History of Present Illness - Reason for Consult Consult date: 11/21/20 Fever Requesting physician: Sam E Sheet - Chief Complaint Weakness and fever 1 day - History of Present Illness Patient is a 65-year-old male with a past medical history significant for MS in this patient usually wheelchair-bound he presented to the [facility] ER for evaluation of weakness and fatigue symptom has been going on for a day or 2 before presentation to the hospital, the patient did have some fever and chills and did have a temperature of 10 3F on arrival to the ER patient denies having any headache. Denies having any URI symptoms, denies having any chest pain shortness of breath or cough. Denies any abdominal pain he did have difficulty with urination and decreased urine output but denies significant burning suprapubic or flank pain with the symptoms the patient has been evaluate by the ER physician on arrival to the ER patient did have a fever, was tachycardic he did have elevated white count of 15.9 did have elevated lactic acid 2.5, patient did have a positive UA, the patient was started on ceftriaxone and subsequently blood culture came positive with gram-positive cocci vancomycin was added an infection he was considered for further management of antibiotic therapy Review of Systems Positive point has been mentioned in the HPI rest of the systems are negative Past Medical History Past Medical History: Musculoskeletal Disorder Additional Past Medical History / Comment(s): MS 2012 dx, urinary retention History of Any Multi-Drug Resistant Organisms: None Reported Past Surgical History: No Surgical Hx Reported Past Anesthesia/Blood Transfusion Reactions: No Reported Reaction Past Psychological History: No Psychological Hx Reported Additional Psychological History / Comment(s): lives at home with ; uses powerchair-ramps to get in house, tri level house- does not go upstair or in basement Smoking Status: Former smoker Past Alcohol Use History: Occasional Additional Past Alcohol Use History / Comment(s): 3 beers a week Past Drug Use History: None Reported Medications and Allergies Home Medications Medication Instructions Recorded Confirmed Type Aspirin EC [Ecotrin Low Dose] 81 mg PO DAILY 11/20/20 11/20/20 History Baclofen 10 mg PO 5XD 11/20/20 11/20/20 History Cholecalciferol (Vitamin D3) 125 mcg PO DAILY 11/20/20 11/20/20 History [Vitamin D3 (5000 Iu)] Furosemide [Lasix] 60 mg PO DAILY 11/20/20 11/20/20 History Lubiprostone [Amitiza] 24 mcg PO BID 11/20/20 11/20/20 History Magnesium Oxide [Mag-Ox] 250 mg PO DAILY 11/20/20 11/20/20 History Multivitamins, Thera [Multivitamin 1 tab PO DAILY 11/20/20 11/20/20 History (formulary)] Ocrevus(Unknown) 1 dose IV Q180D 11/20/20 11/20/20 History Oxybutynin Chloride [Ditropan XL] 5 mg PO DAILY 11/20/20 11/20/20 History Potassium Chloride ER [K-Dur 10] 10 meq PO DAILY 11/20/20 11/20/20 History Allergies Allergy/AdvReac Type Severity Reaction Status Date / Time No Known Allergies Allergy Verified 11/20/20 12:10 Physical Exam Vitals: Vital Signs Temp Pulse Pulse Pulse Resp BP BP 11/21/20 08:00 98.7 F 87 16 128/86 11/21/20 02:11 99.4 F 90 16 102/63 11/20/20 22:15 100.3 F H 91 18 144/78 11/20/20 22:10 16 11/20/20 21:58 98.3 F 82 18 137/84 11/20/20 17:59 98.3 F 79 18 130/85 11/20/20 15:35 87 18 139/87 11/20/20 13:56 98.9 F 82 18 141/74 11/20/20 10:57 11/20/20 10:49 103.1 F H 129 H 22 140/79 Pulse Ox 11/21/20 08:00 11/21/20 02:11 92 L 11/20/20 22:15 98 11/20/20 22:10 11/20/20 21:58 95 11/20/20 17:59 98 11/20/20 15:35 95 11/20/20 13:56 95 11/20/20 10:57 90 L 11/20/20 10:49 88 L Intake and Output 11/20/20 11/21/20 11/21/20 22:59 06:59 14:59 Output Total 1400 Balance -1400 Output: Urine 1400 Other: Voiding Method Urinal # Voids 2 Weight 77.111 kg GENERAL DESCRIPTION: Middle-aged male lying in bed, no distress. No tachypnea or accessory muscle of respiration use. HEENT: Shows Pallor , no scleral icterus. Oral mucous membrane is dry. No pharyngeal erythema or thrush NECK: Trachea central, no thyromegaly. LUNGS: Unlabored breathing. Clear to auscultation anteriorly. No wheeze or crackle. HEART: S1, S2, regular rate and rhythm. No loud murmur ABDOMEN: Soft, no tenderness , guarding or rigidity, no organomegaly EXTREMITIES: diffuse swelling to legs with some erythema and warmth, no wound SKIN: No rash, no masses palpable. NEUROLOGICAL: The patient is awake, alert, oriented x3, mood and affect normal. Results CBC & Chem 7: 11/21/20 05:57 11/21/20 05:57 Labs: Abnormal Lab Results - Last 24 Hours (Table) 11/20/20 11/20/20 11/20/20 Range/Units 11:30 11:30 11:30 WBC 15.9 H (3.8-10.6) k/uL Neutrophils # 15.0 H (1.3-7.7) k/uL Lymphocytes # 0.3 L (1.0-4.8) k/uL BUN 23 H (9-20) mg/dL Plasma Lactic Acid Waldemar (0.7-2.0) mmol/L Urine Ketones 1+ H (Negative) Urine Blood Moderate H (Negative) Ur Leukocyte Esterase Small H (Negative) Urine RBC >182 H (0-5) /hpf Urine WBC 7 H (0-5) /hpf Urine Bacteria Rare H (None) /hpf Urine Mucus Rare H (None) /hpf 11/20/20 Range/Units 11:30 WBC (3.8-10.6) k/uL Neutrophils # (1.3-7.7) k/uL Lymphocytes # (1.0-4.8) k/uL BUN (9-20) mg/dL Plasma Lactic Acid Waldemar 2.5 H* (0.7-2.0) mmol/L Urine Ketones (Negative) Urine Blood (Negative) Ur Leukocyte Esterase (Negative) Urine RBC (0-5) /hpf Urine WBC (0-5) /hpf Urine Bacteria (None) /hpf Urine Mucus (None) /hpf Microbiology - Last 24 Hours (Table) 11/20/20 11:35 Urine Culture - Preliminary Urine,Voided 11/20/20 11:30 Blood Culture Gram Stain - Preliminary Blood 11/20/20 11:30 Blood Culture - Final Blood 11/20/20 11:30 Blood Culture Gram Stain - Preliminary Blood 11/20/20 11:30 Blood Culture - Final Blood Assessment and Plan Assessment: 1-patient presented to hospital with sepsis in this patient who did have a fever tachycardia and elevated lactic acid did have significantly positive UA source is likely urinary tract infection, with concern for possible complicated UTI however ultrasound of the kidney did shows nonobstructing renal stone and no evidence of any hydronephrosis 2- gram-positive bacteremia source is likely urinary vs leg cellulitis waiting for the final ID and sensitivity (1) Gram-positive bacteremia Current Visit: Yes Status: Acute Code(s): R78.81 - BACTEREMIA SNOMED Code(s): 102831229625 (2) Sepsis Current Visit: Yes Status: Acute Code(s): A41.9 - SEPSIS, UNSPECIFIED ORGANISM SNOMED Code(s): 89172705 (3) UTI (urinary tract infection) Current Visit: Yes Status: Acute Code(s): N39.0 - URINARY TRACT INFECTION, SITE NOT SPECIFIED SNOMED Code(s): 29355680 Plan: 1-blood cultures will be repeated document clearance of bacteremia 2-Rocephin 2 g daily and vancomycin to continue while waiting for the cultures to finalize 3-gentle IV fluid We will follow on clinical condition and cultures to further adjust medication if needed Thank you for this consultation will follow this patient with you Time with Patient: Greater than 30
[2020-11-22] MEDS: BACLOFEN 10 MG TAB PO SCH ×5 (05:15→23:42)
[2020-11-22] MEDS: CHOLECALCIFEROL 25 MCG (1000 IU) TABLET PO SCH (07:48)
[2020-11-22] MEDS: PANTOPRAZOLE 40 MG/10 ML VIAL IVP SCH (07:48)
[2020-11-22] MEDS: HEPARIN SODIUM,PORCINE/PF 5,000 UNIT/0.5 ML SYRINGE SQ SCH ×2 (07:48→20:17)
[2020-11-22] MEDS: FAMOTIDINE 20 MG TAB PO SCH ×2 (07:49→20:17)
[2020-11-22] MEDS: OXYBUTYNIN XL 5 MG TAB.ER.24 PO SCH (07:49)
[2020-11-22] MEDS: ASPIRIN 81 MG PO SCH (07:49)
[2020-11-22 10:46] LABS: Basophils # (A) 0.02 X 10*3/uL (0.00-0.10); Basophils % (A) 0.1 %; Eosinophils # (A) 0 X 10*3/uL (0.04-0.35); Eosinophils % (A) 0 %; Lymphocytes # (A) 0.33 X 10*3/uL (0.90-5.00); Lymphocytes % (A) 1.8 %; MCHC 31.6 g/dL (32.0-37.0); Monocytes % (A) 2.7 %; Neutrophils # (A) 17.26 X 10*3/uL (1.80-7.70); Neutrophils % (A) 92.8 %; Platelet Count 173 X 10*3/uL (140-440); RDW 13.4 % (11.5-14.5); WBC 18.59 X 10*3/uL (4.50-10.00)
[2020-11-22 12:11] LABS: African American GFR (CKD) 82.4 (60.0-200.0); Anion Gap 8.1 mmol/L (4.00-12.00); BUN/Creat Ratio 18.18 Ratio (12.00-20.00); Calcium 8.5 mg/dL (8.7-10.3); Carbon Dioxide 25.9 mmol/L (21.6-31.8); Non-African American GFR(CKD) 71.1 (60.0-200.0); Potassium 4.8 mmol/L (3.5-5.5)
--- NOTE | 2020-11-22 12:27 | P.PN ---
Subjective This is a pleasant 65 years old male with past medical history of multiple sclerosis. With resultant weakness in the lower extremity, he is been bound for the last 3 years. He is a patient of Dr. Galarza. 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 He denies chest pain or dyspnea or coughing. No abdominal pain. No nausea vomiting. No diarrhea. No significant urinary complaints Patient is bilateral leg swelling, also complained from constipation Patient has a fever of 103.1 on admission, currently heart rate is 82, breathing rate is 18 and blood pressure 141/74, he is saturating 90% in 2 L oxygen via nasal cannula Labs showed leukocytosis of 15.9 K, rest of CBC, BMP and liver enzymes are unremarkable. Lactic acid slightly up 2.5. Urinalysis is suspicious for infection. Coronary liver is not detected EKG showing sinus tachycardia at [address]-T changes Chest x-ray: No acute process. Per report from radiology Department: cardiomegaly along with chronic emphysematous and pulmonary fibrotic changes without acute pulmonary process Patient is a started on IV vancomycin and ceftriaxone 11/21/2020 Patient is awake, no specific complaint however he states he still feels generally weak with no significant improvement No urinary symptoms. He has some loose stool. He still has bilateral leg swelling, redness and warmth suspicious for bilateral leg cellulitis. On admission he had fever of 100.3, currently is afebrile, not show leukocytosis of 19 K. Blood culture was Positive for hemolytic strep test 2, patient is currently covered with ceftriaxone and IV vancomycin when infectious disease team on the case. Patient currently also on normal sinus 75 mL/h. We will add Lasix for his leg swelling. Ultrasound of the leg showing no DVT of the right leg and possible chronic DVT in the left leg. Patient is currently covered with subcutaneous heparin We going to consult hematology service given he is at risk factor for further DVT to help with management of anticoagulation. Also he has some immature granulocyte but mostly thus related to his infectious process. 11/22/2020 Patient strength is improving today after he was started on steroids by neurologist Patient is been treated for bilateral leg cellulitis however blood culture came back positive for hemolytic Streptococcus group B which is sensitive to many antibiotics and patient was started on cefazolin by ID team. he still have leukocytosis of 18.5 and high grade temperature today 102. MRI of the brain showing degenerative lesions of the cervical spine and brain lesions consistent with multiple sclerosis although there is no new lesions. Patient also started on sliding scale of insulin because he is on Solu-Medrol Objective - Vital Signs Vital signs: Vital Signs Temp 98 F 11/22/20 07:30 Pulse 75 11/22/20 07:50 Resp 18 11/22/20 07:50 BP 138/90 11/22/20 07:30 Pulse Ox 97 11/22/20 07:30 Intake & Output 11/21/20 11/22/20 11/22/20 18:59 06:59 18:59 Other: Voiding Method External Catheter External Catheter - Exam GENERAL: The patient is alert and oriented x3, not in any acute distress. Well developed, well nourished. HEENT: Pupils are round and equally reacting to light. EOMI. No scleral icterus. No conjunctival pallor. Normocephalic, atraumatic. No pharyngeal erythema. No thyromegaly. CARDIOVASCULAR: S1 and S2 present. No murmurs, rubs, or gallops. PULMONARY: Chest is clear to auscultation, no wheezing or crackles. ABDOMEN: Soft, nontender, nondistended, normoactive bowel sounds. No palpable organomegaly. MUSCULOSKELETAL: No joint swelling or deformity. -EXTREMITIES: No cyanosis, clubbing, or pedal edema. Bilateral leg redness, warmth and swelling -NEUROLOGICAL: Gross neurological examination did not reveal any focal deficits. Chronic weakness of the bilateral lower extremity with minimal movements. Weakness in the upper extremities improving bilaterally. Sensation intact. Meningeal signs are absent SKIN: No rashes. No petechiae - Labs CBC & Chem 7: 11/22/20 06:39 11/22/20 06:39 Labs: Abnormal Lab Results - Last 24 Hours (Table) 11/21/20 11/22/20 11/22/20 Range/Units 05:57 06:39 06:39 WBC 18.59 H (4.50-10.00) X 10*3/uL RBC 4.00 L (4.40-5.60) X 10*6/uL Hgb 12.0 L (13.0-17.0) g/dL Hct 38.0 L (39.6-50.0) % MCHC 31.6 L (32.0-37.0) g/dL Immature Gran # 0.48 H (0.00-0.04) X 10*3/uL Neutrophils # 17.26 H (1.80-7.70) X 10*3/uL Lymphocytes # 0.33 L (0.90-5.00) X 10*3/uL Eosinophils # 0 L (0.04-0.35) X 10*3/uL Carbon Dioxide 21.5 L (21.6-31.8) mmol/L BUN/Creatinine Ratio 21.00 H (12.00-20.00) Ratio Glucose 112 H 130 H (70-110) mg/dL Calcium 8.2 L 8.5 L (8.7-10.3) mg/dL Microbiology - Last 24 Hours (Table) 11/20/20 11:30 Blood Culture Gram Stain - Final Blood Blood Culture - Final Beta Hemolytic Strep Group G 11/20/20 11:30 Blood Culture Gram Stain - Final Blood Blood Culture - Final Beta Hemolytic Strep Group G 11/20/20 11:35 Urine Culture - Final Urine,Voided Assessment and Plan Assessment: Bilateral leg cellulitis Streptococcus septicemia Acute urinary tract infection, secondary to right kidney stone3 mm Chronic left leg DVT Sepsis, with fever leukocytosis Generalized weakness secondary to above psuod-MS exacerbation secondary to above Bilateral leg swelling secondary to disuse Plan: This is a pleasant 65 years old male who presents with UTI/pyelonephritis. Start the patient on cefazolin. Monitor patient was closely Consults infectious disease and follow-up recommendation. Continue with steroids Consult neurology service Labs and medication were reviewed.. Continue same treatment. Continue with symptomatic treatment. Resume home medication. Monitor lytes and vitals. DVT and GI prophylaxis. Further recommendations depends on the clinical course of the patient DVT prophylaxis: Subcutaneous heparin GI Prophylaxis: Pepcid PT/OT: Pending Prognosis is guarded
[2020-11-22] MEDS: INSULIN ASPART (NovoLOG) 100 UNIT/ML VIAL SQ SCH ×3 (15:13→20:17)
--- NOTE | 2020-11-22 16:19 | P.PN ---
Subjective Progress Note Date: 11/22/20 The patient was seen at bedside and seem to be doing better today compared to yesterday. He is on IV Solumedrol. Denies any further tightness as initial presentation. Objective - Vital Signs Vital signs: Vital Signs Temp 97.8 F 11/22/20 13:53 Pulse 72 11/22/20 13:53 Resp 17 11/22/20 13:53 BP 121/79 11/22/20 13:53 Pulse Ox 98 11/22/20 13:53 Intake & Output 11/21/20 11/22/20 11/22/20 18:59 06:59 18:59 Other: Voiding Method External Catheter External Catheter - Exam GENERAL: The patient is lying in bed and is not in acute distress. INTEGUMANTARY: Significant edema of bilateral lower extremities about proximal calf, erythematous and warm to touch. NEUROLOGICAL: Higher mental function: The patient is awake, alert, oriented to self, place and time. Patient is following commands. No aphasia and no neglect. Cranial nerves: The pupils are round, equal and reactive to light and accommodation. Visual new are full to confrontation throughout. Extraocular movement is intact no nystagmus is noted. Facial sensation is normal to touch throughout. The facial strength is normal throughout. Hearing is normal bilaterally to hand rub. Tongue is midline and moved [id number] without any difficulty. No dysarthria is noted. Shoulder shrug is normal bilaterally. Motor: Gait is deferred. The strength is Right arm/forearm is 4+ to 5- while left is 4+. Hand office support assistant are 4+ bilaterally. Finger dorsiflexion are 3/5 (baseline). Wrist dorsiflexion are 3/5 bilaterally. Bilateral lower extremities are 1-2 bilaterally but had few episodes of lifting the left lower extremity above gravity. Increase tone in bilateral upper and lower Cerebellum: Unable to assess. Sensation: Sensation is normal in upper while lower he stated decreased and seemed from distal knees. Reflexes (right/left): 2+ throughout uppers while lower could not assess because of patient's pain. Plantars are upgoing bilaterally. - Labs CBC & Chem 7: 11/22/20 06:39 11/22/20 06:39 Labs: Abnormal Lab Results - Last 24 Hours (Table) 11/21/20 11/22/20 11/22/20 Range/Units 05:57 06:39 06:39 WBC 18.59 H (4.50-10.00) X 10*3/uL RBC 4.00 L (4.40-5.60) X 10*6/uL Hgb 12.0 L (13.0-17.0) g/dL Hct 38.0 L (39.6-50.0) % MCHC 31.6 L (32.0-37.0) g/dL Immature Gran # 0.48 H (0.00-0.04) X 10*3/uL Neutrophils # 17.26 H (1.80-7.70) X 10*3/uL Lymphocytes # 0.33 L (0.90-5.00) X 10*3/uL Eosinophils # 0 L (0.04-0.35) X 10*3/uL Carbon Dioxide 21.5 L (21.6-31.8) mmol/L BUN/Creatinine Ratio 21.00 H (12.00-20.00) Ratio Glucose 112 H 130 H (70-110) mg/dL Calcium 8.2 L 8.5 L (8.7-10.3) mg/dL Microbiology - Last 24 Hours (Table) 11/20/20 11:30 Blood Culture Gram Stain - Final Blood Blood Culture - Final Beta Hemolytic Strep Group G 11/20/20 11:30 Blood Culture Gram Stain - Final Blood Blood Culture - Final Beta Hemolytic Strep Group G 11/20/20 11:35 Urine Culture - Final Urine,Voided Assessment and Plan Assessment: Generalized weakness and fatigue with elevated fever. Seems pseudo-MS exacerbation from underlying infection (cellulitis/UTI) Acute cellulitis of bilateral lower extremities Acute urinary tract infection History of multiple sclerosis Plan: CT head is reported as No acute intracranial hemorrhage or midline shift. There is mild to moderate diffuse age related cerebral atrophy and mild chronic small vessel ischemic change noted. MRI brain w/ and w/o is reported as correlated for multiple sclerosis. No enhancing plaque evident. MRI Cervical spine s/ and w/o: It is reported as Degenerative disc disease and multilevel foraminal enroachment. Extensive artifact throughout present. No definitive abnormal cord signal. Even though the patient has no new lesion evident on the MRI I started the patient on IV Solu-Medrol 500mg every 12 hours for 3-5 day (started on 11/21/20 at 20:00 received first dose) His pm dose today would be start of day 2. Physical therapy and occupational therapy are on board. Patient is on ceftriaxone and vancomycin. Infection disease team was consulted. Is on Protonix IV bid since on IV steroid. Will deer management of sugar control to the primary team. The plan is discussed with the patient's nurse. Joseluis Oquendo MD Neuro-Hospitalist Time with Patient: Less than 30
[2020-11-22 16:30] LABS: Glucose,Whole Blood 175 mg/dL (75-99)
--- NOTE | 2020-11-22 17:20 | PN ---
PROGRESS NOTE DATE OF SERVICE: 11/22/2020 REASON FOR FOLLOWUP VISIT: UTI and bacteremia. INTERVAL HISTORY: The patient is currently afebrile. Patient is breathing comfortably. Patient denies having any chest pain or shortness of breath or cough. No abdominal pain. Still has swelling to the leg. Denies significant pain. PHYSICAL EXAMINATION: Blood pressure 120/79 with a pulse of 72. Temperature is 97.8. He is 98% on 2 L nasal cannula. General description is a middle-aged male lying in bed in no distress. Respiratory system: Unlabored breathing. Clear to auscultation anteriorly. Heart S1, S2. Regular rate and rhythm. Abdomen soft, no tenderness. The leg swelling persists. Redness has slightly decreased. LABS: Hemoglobin is 12.7, white count 15.5, BUN of 20, creatinine 1.1. Blood culture with Streptococcus agalactiae. DIAGNOSTIC IMPRESSION AND PLAN: Patient with group G strep bacteremia, source likely bilateral lower extremity cellulitis. The patient is covered with cefazolin to continue. White count elevation more likely due to steroids and will be monitored closely. Continue supportive care. MMODL / IJN: [id number] /
[2020-11-22 20:09] LABS: Glucose,Whole Blood 207 mg/dL (75-99)
[2020-11-22] MEDS: FUROSEMIDE 20 MG TAB PO SCH (20:17)
[2020-11-22] MEDS: traMADol 50 MG TAB PO PRN (21:04)
[2020-11-23] MEDS: BACLOFEN 10 MG TAB PO SCH ×5 (05:59→23:30)
[2020-11-23 07:28] LABS: Glucose,Whole Blood 148 mg/dL (75-99)
[2020-11-23] MEDS: OXYBUTYNIN XL 5 MG TAB.ER.24 PO SCH (07:47)
[2020-11-23] MEDS: PANTOPRAZOLE 40 MG/10 ML VIAL IVP SCH (07:47)
[2020-11-23] MEDS: INSULIN ASPART (NovoLOG) 100 UNIT/ML VIAL SQ SCH ×4 (07:48→21:17)
[2020-11-23] MEDS: HEPARIN SODIUM,PORCINE/PF 5,000 UNIT/0.5 ML SYRINGE SQ SCH ×2 (07:48→21:17)
[2020-11-23] MEDS: ASPIRIN 81 MG PO SCH (07:48)
[2020-11-23] MEDS: FAMOTIDINE 20 MG TAB PO SCH ×2 (07:48→21:17)
[2020-11-23] MEDS: FUROSEMIDE 20 MG TAB PO SCH (07:48)
[2020-11-23] MEDS: CHOLECALCIFEROL 25 MCG (1000 IU) TABLET PO SCH (07:48)
[2020-11-23] MEDS ORDERED: polyethylene glycoL 3350 17 GM POWD.PACK PO PRN (09:21)
[2020-11-23] MEDS: DOCUSATE 100 MG CAP PO SCH ×2 (09:31→21:17)
[2020-11-23] MEDS: SENNOSIDES 8.6 MG TAB PO SCH ×2 (09:31→21:17)
[2020-11-23 11:45] LABS: HCT 37.4 % (39.6-50.0); HGB 11.9 g/dL (13.0-17.0); MCH 29.8 pg (27.0-32.0); MCHC 31.8 g/dL (32.0-37.0); MCV 93.5 fL (80.0-97.0); Mean Platelet Volume 11.2 fL (9.5-12.2); Platelet Count 178 X 10*3/uL (140-440); RDW 13.3 % (11.5-14.5); WBC 24.55 X 10*3/uL (4.50-10.00)
[2020-11-23 11:58] LABS: Glucose,Whole Blood 123 mg/dL (75-99)
[2020-11-23 12:38] LABS: Basophils # (A) 0.04 X 10*3/uL (0.00-0.10); Basophils % (A) 0.2 %; Eosinophils # (A) 0 X 10*3/uL (0.04-0.35); Eosinophils % (A) 0 %; Lymphocytes # (A) 0.49 X 10*3/uL (0.90-5.00); Monocytes # (A) 1.46 X 10*3/uL (0.20-1.00); Monocytes % (A) 5.9 %; Neutrophils # (A) 22.24 X 10*3/uL (1.80-7.70); Neutrophils % (A) 90.6 %
--- NOTE | 2020-11-23 14:02 | P.PN ---
Subjective Progress Note Date: 11/23/20 The patient seen at bedside and he feels better today compared that to his initial presentation but stated he is not back to baseline. He stated now he is able to use his hands and feed himself. Objective - Vital Signs Vital signs: Vital Signs Temp 97.9 F 11/23/20 08:00 Pulse 50 L 11/23/20 08:00 Resp 16 11/23/20 08:00 BP 115/73 11/23/20 08:00 Pulse Ox 98 11/23/20 08:00 Intake & Output 11/22/20 11/23/20 11/23/20 18:59 06:59 18:59 Intake Total 200 120 Output Total 1560 650 Balance 200 -1560 -530 Intake: Intake, IV Titration 200 Amount ceFAZolin 2 gm In Sodium 100 Chloride 0.9% 50 ml @ 100 mls/hr IVPB Q8HR ALEX Rx# :[id number] methylPREDNISolone SOD 100 SUCC 500 mg In Sodium Chloride 0.9% 100 ml @ 100 mls/hr IVPB Q12HR ALEX Rx#:[id number] Oral 120 Output: Urine 1560 650 Other: Voiding Method External Catheter External Catheter - Exam GENERAL: The patient is lying in bed and is not in acute distress. INTEGUMANTARY: Significant edema of bilateral lower extremities about proximal calf, erythematous and warm to touch. NEUROLOGICAL: Higher mental function: The patient is awake, alert, oriented to self, place and time. Patient is following commands. No aphasia and no neglect. Cranial nerves: The pupils are round, equal and reactive to light and accommodation. Visual new are full to confrontation throughout. Extraocular movement is intact no nystagmus is noted. Facial sensation is normal to touch throughout. The facial strength is normal throughout. Hearing is normal bilaterally to hand rub. Tongue is midline and moved [id number] without any difficulty. No dysarthria is noted. Shoulder shrug is normal bilaterally. Motor: Gait is deferred. The strength is Right arm/forearm is 4+ to 5- while left is 4+. Hand journeyman level acoustic analyst are 4+ bilaterally. Finger dorsiflexion are 3/5 (baseline). Wrist dorsiflexion are 3/5 bilaterally. Bilateral lower extremities are 1-2 bilaterally but had few episodes of lifting the left lower extremity above gravity. Increase tone in bilateral upper and lower Cerebellum: Unable to assess. Sensation: Sensation is normal in upper while lower he stated decreased and seemed from distal knees. Reflexes (right/left): 2+ throughout uppers while lower could not assess because of patient's pain. Plantars are upgoing bilaterally. - Labs CBC & Chem 7: 11/23/20 06:11 11/22/20 06:39 Labs: Abnormal Lab Results - Last 24 Hours (Table) 11/22/20 11/22/20 11/23/20 Range/Units 16:29 20:07 06:11 WBC 24.55 H (4.50-10.00) X 10*3/uL RBC 4.00 L (4.40-5.60) X 10*6/uL Hgb 11.9 L (13.0-17.0) g/dL Hct 37.4 L (39.6-50.0) % MCHC 31.8 L (32.0-37.0) g/dL Immature Gran # 0.32 H (0.00-0.04) X 10*3/uL Neutrophils # 22.24 H (1.80-7.70) X 10*3/uL Lymphocytes # 0.49 L (0.90-5.00) X 10*3/uL Monocytes # 1.46 H (0.20-1.00) X 10*3/uL Eosinophils # 0 L (0.04-0.35) X 10*3/uL POC Glucose (mg/dL) 175 H 207 H (75-99) mg/dL 11/23/20 11/23/20 Range/Units 07:12 11:44 WBC (4.50-10.00) X 10*3/uL RBC (4.40-5.60) X 10*6/uL Hgb (13.0-17.0) g/dL Hct (39.6-50.0) % MCHC (32.0-37.0) g/dL Immature Gran # (0.00-0.04) X 10*3/uL Neutrophils # (1.80-7.70) X 10*3/uL Lymphocytes # (0.90-5.00) X 10*3/uL Monocytes # (0.20-1.00) X 10*3/uL Eosinophils # (0.04-0.35) X 10*3/uL POC Glucose (mg/dL) 148 H 123 H (75-99) mg/dL Microbiology - Last 24 Hours (Table) 11/20/20 11:30 Blood Culture Gram Stain - Final Blood Blood Culture - Final Beta Hemolytic Strep Group G 11/20/20 11:30 Blood Culture Gram Stain - Final Blood Blood Culture - Final Beta Hemolytic Strep Group G Assessment and Plan Assessment: Generalized weakness and fatigue with elevated fever. Seems pseudo-MS exacerbation from underlying infection (cellulitis) --weakness improving but not back to baseline Acute cellulitis of bilateral lower extremities History of multiple sclerosis Plan: * CT head is reported as No acute intracranial hemorrhage or midline shift. There is mild to moderate diffuse age related cerebral atrophy and mild chronic small vessel ischemic change noted. * MRI brain w/ and w/o is reported as correlated for multiple sclerosis. No enhancing plaque evident. * MRI Cervical spine s/ and w/o: It is reported as Degenerative disc disease and multilevel foraminal enroachment. Extensive artifact throughout present. No definitive abnormal cord signal. * Even though the patient has no new lesion evident on the MRI I started the patient on IV Solu-Medrol 500mg every 12 hours for 3-5 day (started on 11/21/20 at 20:00 received first dose) His pm dose today would be start of day 3. Recommend completing all 5 days (last day would be on 11/26 after AM dose). * Physical therapy and occupational therapy are on board. * Patient is on ceftriaxone and vancomycin. * Infection disease team are on board. * Is on Protonix IV daily since on IV steroid for GI prophylaxis * Will defer rest of medical management to the primary team. The plan is discussed with the patient's nurse. Joseluis Oquendo MD Neuro-Hospitalist Time with Patient: Less than 30
[2020-11-23 15:16] LABS: Anion Gap 10.2 mmol/L (4.00-12.00); BUN/Creat Ratio 21.11 Ratio (12.00-20.00); Calcium 8.9 mg/dL (8.7-10.3); Carbon Dioxide 24.8 mmol/L (21.6-31.8); Non-African American GFR(CKD) 90.6 (60.0-200.0); Potassium 3.4 mmol/L (3.5-5.5)
[2020-11-23] MEDS: traMADol 50 MG TAB PO PRN (15:33)
[2020-11-23 20:21] LABS: Glucose,Whole Blood 211 mg/dL (75-99)
[2020-11-23] MEDS ORDERED: Potassium Replacement Protocol 1 EACH MISC MISCELLANE PRN (21:07)
--- NOTE | 2020-11-23 21:12 | P.PN ---
Subjective This is a pleasant 65 years old male with past medical history of multiple sclerosis. With resultant weakness in the lower extremity, he is been bound for the last 3 years. He is a patient of Dr. Galarza. Presents because of generalized weakness and loss of energy for the last few days, patient could not move all his extremities, including upper extremity little bit more weak on the right side and he has weaker nurse wound. He denies chest pain or dyspnea or coughing. No abdominal pain. No nausea vomiting. No diarrhea. No significant urinary complaints Patient is bilateral leg swelling, also complained from constipation Patient has a fever of 103.1 on admission, currently heart rate is 82, breathing rate is 18 and blood pressure 141/74, he is saturating 90% in 2 L oxygen via nasal cannula Labs showed leukocytosis of 15.9 K, rest of CBC, BMP and liver enzymes are unremarkable. Lactic acid slightly up 2.5. Urinalysis is suspicious for infection. Coronary liver is not detected EKG showing sinus tachycardia at [address]-T changes Chest x-ray: No acute process. Per report from radiology Department: cardiomegaly along with chronic emphysematous and pulmonary fibrotic changes without acute pulmonary process Patient is a started on IV vancomycin and ceftriaxone 11/21/2020 Patient is awake, no specific complaint however he states he still feels generally weak with no significant improvement No urinary symptoms. He has some loose stool. He still has bilateral leg swelling, redness and warmth suspicious for bilateral leg cellulitis. On admission he had fever of 100.3, currently is afebrile, not show leukocytosis of 19 K. Blood culture was Positive for hemolytic strep test 2, patient is currently covered with ceftriaxone and IV vancomycin when infectious disease team on the case. Patient currently also on normal sinus 75 mL/h. We will add Lasix for his leg swelling. Ultrasound of the leg showing no DVT of the right leg and possible chronic DVT in the left leg. Patient is currently covered with subcutaneous heparin We going to consult hematology service given he is at risk factor for further DVT to help with management of anticoagulation. Also he has some immature granulocyte but mostly thus related to his infectious process. 11/22/2020 Patient strength is improving today after he was started on steroids by neurologist Patient is been treated for bilateral leg cellulitis however blood culture came back positive for hemolytic Streptococcus group B which is sensitive to many antibiotics and patient was started on cefazolin by ID team. he still have leukocytosis of 18.5 and high grade temperature today 102. MRI of the brain showing degenerative lesions of the cervical spine and brain lesions consistent with multiple sclerosis although there is no new lesions. Patient also started on sliding scale of insulin because he is on Solu-Medrol 11/23/2020 Patient is still improving gradually however he still weak and physical therapy recommended rehab upon discharge, his weakness generalized and related to his infection and possible MS exacerbation and possible by his on steroids per neurology service to finish 5 day course. He has positive blood culture secondary to bilateral leg cellulitis and he is on appropriate antibiotics with cefazolin per ID team. We will follow the recommendation of right edema about discharge antibiotics. Medication for constipation is provided Monitor electrolytes and depressed accordingly. His leukocytosis is definitely related to steroids as well not only infection. Keep monitoring Objective - Vital Signs Vital signs: Vital Signs Temp 97.6 F 11/23/20 14:00 Pulse 74 11/23/20 14:00 Resp 16 11/23/20 14:00 BP 134/74 11/23/20 14:00 Pulse Ox 98 11/23/20 14:57 Intake & Output 11/22/20 11/23/20 11/23/20 18:59 06:59 18:59 Intake Total 200 320 Output Total 1560 650 Balance 200 -1560 -330 Intake: Intake, IV Titration 200 Amount ceFAZolin 2 gm In Sodium 100 Chloride 0.9% 50 ml @ 100 mls/hr IVPB Q8HR [facility]LEX Rx# :[id number] methylPREDNISolone SOD 100 SUCC 500 mg In Sodium Chloride 0.9% 100 ml @ 100 mls/hr IVPB Q12HR ALEX Rx#:[id number] Oral 320 Output: Urine 1560 650 Other: Voiding Method External Catheter External Catheter - Exam GENERAL: The patient is alert and oriented x3, not in any acute distress. Well developed, well nourished. HEENT: Pupils are round and equally reacting to light. EOMI. No scleral icterus. No conjunctival pallor. Normocephalic, atraumatic. No pharyngeal erythema. No thyromegaly. CARDIOVASCULAR: S1 and S2 present. No murmurs, rubs, or gallops. PULMONARY: Chest is clear to auscultation, no wheezing or crackles. ABDOMEN: Soft, nontender, nondistended, normoactive bowel sounds. No palpable organomegaly. MUSCULOSKELETAL: No joint swelling or deformity. -EXTREMITIES: No cyanosis, clubbing, or pedal edema. Bilateral leg redness, warmth and swelling -NEUROLOGICAL: Gross neurological examination did not reveal any focal deficits. Chronic weakness of the bilateral lower extremity with minimal movements. Weakness in the upper extremities improving bilaterally. Sensation intact. Meningeal signs are absent SKIN: No rashes. No petechiae - Labs CBC & Chem 7: 11/23/20 06:11 11/23/20 06:11 Labs: Abnormal Lab Results - Last 24 Hours (Table) 11/22/20 11/22/20 11/23/20 Range/Units 16:29 20:07 06:11 WBC 24.55 H (4.50-10.00) X 10*3/uL RBC 4.00 L (4.40-5.60) X 10*6/uL Hgb 11.9 L (13.0-17.0) g/dL Hct 37.4 L (39.6-50.0) % MCHC 31.8 L (32.0-37.0) g/dL Immature Gran # 0.32 H (0.00-0.04) X 10*3/uL Neutrophils # 22.24 H (1.80-7.70) X 10*3/uL Lymphocytes # 0.49 L (0.90-5.00) X 10*3/uL Monocytes # 1.46 H (0.20-1.00) X 10*3/uL Eosinophils # 0 L (0.04-0.35) X 10*3/uL Potassium (3.5-5.5) mmol/L BUN/Creatinine Ratio (12.00-20.00) Ratio Glucose (70-110) mg/dL POC Glucose (mg/dL) 175 H 207 H (75-99) mg/dL 11/23/20 11/23/20 11/23/20 Range/Units 06:11 07:12 11:44 WBC (4.50-10.00) X 10*3/uL RBC (4.40-5.60) X 10*6/uL Hgb (13.0-17.0) g/dL Hct (39.6-50.0) % MCHC (32.0-37.0) g/dL Immature Gran # (0.00-0.04) X 10*3/uL Neutrophils # (1.80-7.70) X 10*3/uL Lymphocytes # (0.90-5.00) X 10*3/uL Monocytes # (0.20-1.00) X 10*3/uL Eosinophils # (0.04-0.35) X 10*3/uL Potassium 3.4 L (3.5-5.5) mmol/L BUN/Creatinine Ratio 21.11 H (12.00-20.00) Ratio Glucose 147 H (70-110) mg/dL POC Glucose (mg/dL) 148 H 123 H (75-99) mg/dL Microbiology - Last 24 Hours (Table) 11/20/20 11:30 Blood Culture Gram Stain - Final Blood Blood Culture - Final Beta Hemolytic Strep Group G 11/20/20 11:30 Blood Culture Gram Stain - Final Blood Blood Culture - Final Beta Hemolytic Strep Group G Assessment and Plan Assessment: Bilateral leg cellulitis Streptococcus septicemia Acute urinary tract infection, secondary to right kidney stone3 mm Chronic left leg DVT Sepsis, with fever leukocytosis Generalized weakness secondary to above [id number] exacerbation secondary to above Bilateral leg swelling secondary to disuse Plan: This is a pleasant 65 years old male who presents with UTI/pyelonephritis. Start the patient on cefazolin. Monitor patient was closely Consults infectious disease and follow-up recommendation. Continue with steroids Consult neurology service Labs and medication were reviewed.. Continue same treatment. Continue with symptomatic treatment. Resume home medication. Monitor lytes and vitals. DVT and GI prophylaxis. Further recommendations depends on the clinical course of the patient DVT prophylaxis: Subcutaneous heparin GI Prophylaxis: Pepcid PT/OT: Pending Prognosis is guarded
[2020-11-23 22:25] LABS: Magnesium 1.9 mg/dL (1.6-2.3); Potassium 3.2 mmol/L (3.5-5.1)
[2020-11-24] MEDS ORDERED: Potassium Replacement Protocol 1 EACH MISC MISCELLANE PRN ×2 (02:45→11:34)
[2020-11-24] MEDS ORDERED: POTASSIUM BICARBONATE/CIT AC 20 MEQ TABLET.EFF NG-TUBE SCH (03:00)
[2020-11-24] MEDS: POTASSIUM BICARBONATE/CIT AC 20 MEQ TABLET.EFF NG-TUBE SCH ×2 (03:04→04:11)
--- NOTE | 2020-11-24 03:55 | PN ---
PROGRESS NOTE DATE OF SERVICE: 11/23/2020 REASON FOR FOLLOWUP: Bilateral lower extremity cellulitis with bacteremia. INTERVAL HISTORY: The patient is afebrile. The patient is breathing comfortably. The patient denies having any chest pain, shortness of breath or cough. No abdominal pain or any worsening pain to lower extremities. No diarrhea. PHYSICAL EXAMINATION: Blood pressure is 134/74 with a pulse of 74, temperature 97.6. He is 95% on 2 L nasal cannula. General description is a middle-aged male lying in bed in no distress. Respiratory system: Unlabored breathing, clear to auscultation anteriorly. Heart S1, S2. Regular rate and rhythm. ABDOMEN: Soft, no tenderness. Lower extremity swelling persists. Redness has slightly decreased. LABS: White count is 24.55, BUN of 19, creatinine 0.9. Blood culture with group G strep. Urine culture has been negative. DIAGNOSTIC IMPRESSION AND PLAN: 1. Patient with group G strep bacteremia. Source is likely bilateral lower extremity cellulitis. Initial concern for possible urinary tract infection. Urine culture has been negative. Patient is covered cefazolin to continue. 2. Patient with significant elevated white count more likely steroid effect, as the patient currently getting 500 mg Solu-Medrol q.12 hours. MMODL / IJN: [id number] /
[2020-11-24] MEDS: BACLOFEN 10 MG TAB PO SCH ×5 (05:27→23:29)
[2020-11-24 06:55] LABS: Glucose,Whole Blood 131 mg/dL (75-99)
[2020-11-24] MEDS: CHOLECALCIFEROL 25 MCG (1000 IU) TABLET PO SCH (08:27)
[2020-11-24] MEDS: ASPIRIN 81 MG PO SCH (08:27)
[2020-11-24] MEDS: OXYBUTYNIN XL 5 MG TAB.ER.24 PO SCH (08:27)
[2020-11-24] MEDS: PANTOPRAZOLE 40 MG TABLET PO SCH (08:27)
[2020-11-24] MEDS: FAMOTIDINE 20 MG TAB PO SCH ×2 (08:27→21:48)
[2020-11-24] MEDS: FUROSEMIDE 20 MG TAB PO SCH (08:27)
[2020-11-24] MEDS: DOCUSATE 100 MG CAP PO SCH ×2 (08:27→21:48)
[2020-11-24] MEDS: SENNOSIDES 8.6 MG TAB PO SCH ×2 (08:27→21:48)
[2020-11-24] MEDS: HEPARIN SODIUM,PORCINE/PF 5,000 UNIT/0.5 ML SYRINGE SQ SCH ×2 (08:27→21:48)
[2020-11-24] MEDS: INSULIN ASPART (NovoLOG) 100 UNIT/ML VIAL SQ SCH ×4 (08:28→21:48)
[2020-11-24 09:59] LABS: Basophils # (A) 0.03 X 10*3/uL (0.00-0.10); Basophils % (A) 0.1 %; Eosinophils # (A) 0.03 X 10*3/uL (0.04-0.35); Eosinophils % (A) 0.1 %; HCT 34.2 % (39.6-50.0); HGB 11.1 g/dL (13.0-17.0); Lymphocytes # (A) 0.48 X 10*3/uL (0.90-5.00); Lymphocytes % (A) 2.4 %; MCHC 32.5 g/dL (32.0-37.0); MCV 92.4 fL (80.0-97.0); Monocytes # (A) 1.36 X 10*3/uL (0.20-1.00); Monocytes % (A) 6.7 %; Neutrophils # (A) 18.13 X 10*3/uL (1.80-7.70); Neutrophils % (A) 89.3 %; Platelet Count 173 X 10*3/uL (140-440); RDW 13.3 % (11.5-14.5); WBC 20.31 X 10*3/uL (4.50-10.00)
[2020-11-24] MEDS ORDERED: Magnesium Replacement Protocol 1 EACH MISC MISCELLANE PRN (11:34)
[2020-11-24 11:46] LABS: Anion Gap 8.7 mmol/L (4.00-12.00); BUN/Creat Ratio 28.89 Ratio (12.00-20.00); Calcium 8.1 mg/dL (8.7-10.3); Carbon Dioxide 29.3 mmol/L (21.6-31.8); Magnesium 1.9 mg/dL (1.5-2.4); Non-African American GFR(CKD) 90.6 (60.0-200.0); Potassium 3.6 mmol/L (3.5-5.5)
[2020-11-24 12:03] LABS: Potassium 3.3 mmol/L (3.5-5.1)
[2020-11-24 12:08] LABS: Glucose,Whole Blood 175 mg/dL (75-99)
--- NOTE | 2020-11-24 13:01 | US ---
EXAMINATION TYPE: US venous doppler duplex LE DATE OF EXAM: 11/24/2020 12:41 PM COMPARISON: US 202011/20/2020 CLINICAL HISTORY: Rule out DVT, leg swelling and more weak. SIDE PERFORMED: Bilateral TECHNIQUE: The lower extremity deep venous system is examined utilizing real time linear array sonog frankie with graded compression, doppler sonography and color-flow sonography. VESSELS IMAGED: Common Femoral Vein Deep Femoral Vein Greater Saphenous Vein * Femoral Vein Popliteal Vein Small Saphenous Vein * Proximal Calf Veins (* superficial vessels) Right Leg: Appears negative for DVT Left Leg: Appears negative for DVT IMPRESSION: 1. No acute evidence of deep venous thrombosis of the lower extremity veins.
[2020-11-24 14:17] VITALS: BMI 24.3
[2020-11-24] MEDS: traMADol 50 MG TAB PO PRN ×2 (15:47→22:50)
[2020-11-24 17:21] LABS: Glucose,Whole Blood 187 mg/dL (75-99)
--- NOTE | 2020-11-24 18:50 | P.PN ---
Subjective Progress Note Date: 11/24/20 The patient seen at bedside and he stated that he's feeling much better compared to in his initial presentation. He feels his swelling in the lower extremities are going down. Objective - Vital Signs Vital signs: Vital Signs Temp 97.5 F L 11/24/20 14:00 Pulse 76 11/24/20 14:00 Resp 16 11/24/20 14:00 BP 142/68 11/24/20 14:00 Pulse Ox 91 L 11/24/20 14:00 Intake & Output 11/23/20 11/24/20 11/24/20 18:59 06:59 18:59 Intake Total 520 400 Output Total 2150 400 2000 Balance -1630 -400 -1600 Weight 77.111 kg Intake: Oral 520 400 Output: Urine 2150 400 2000 Other: Voiding Method External Catheter - Exam GENERAL: The patient is lying in bed and is not in acute distress. INTEGUMANTARY: Mderate edema of bilateral lower extremities about proximal calf, erythematous and warm to touch. NEUROLOGICAL: Higher mental function: The patient is awake, alert, oriented to self, place and time. Patient is following commands. No aphasia and no neglect. Cranial nerves: The pupils are round, equal and reactive to light and accommodation. Visual new are full to confrontation throughout. Extraocular movement is intact no nystagmus is noted. Facial sensation is normal to touch throughout. The facial strength is normal throughout. Hearing is normal bilaterally to hand rub. Tongue is midline and moved [id number] without any d ifficulty. No dysarthria is noted. Shoulder shrug is normal bilaterally. Motor: Gait is deferred. The strength is Right arm/forearm is 5- while left is 4+ to 5-. Hand stringed instrument assembler are 4+ bilaterally. Finger dorsiflexion are 2-3/5 (baseline). Wrist dorsiflexion are 3/5 bilaterally. Bilateral lower e xtremities is able to lift above bed (left > right). Increase tone in bilateral upper and lower Cerebellum: Unable to assess. Sensation: Sensation is normal in upper while lower he stated decreased and seemed from distal knees. Reflexes (right/left): 2+ throughout uppers while lower could not assess because of patient's pain. Plantars are upgoing bilaterally. - Labs CBC & Chem 7: 11/24/20 06:00 11/24/20 11:37 Labs: Abnormal Lab Results - Last 24 Hours (Table) 11/23/20 11/23/20 11/24/20 Range/Units 20:19 21:31 06:00 WBC 20.31 H (4.50-10.00) X 10*3/uL RBC 3.70 L (4.40-5.60) X 10*6/uL Hgb 11.1 L (13.0-17.0) g/dL Hct 34.2 L (39.6-50.0) % Absolute Nucleated RBC 0.02 H (0.00-0.00) X 10*3/uL Immature Gran # 0.28 H (0.00-0.04) X 10*3/uL Neutrophils # 18.13 H (1.80-7.70) X 10*3/uL Lymphocytes # 0.48 L (0.90-5.00) X 10*3/uL Monocytes # 1.36 H (0.20-1.00) X 10*3/uL Eosinophils # 0.03 L (0.04-0.35) X 10*3/uL NRBC/100 WBC Diff 0.1 H (0.0-0.0) /100 WBCS Potassium 3.2 L (3.5-5.1) mmol/L BUN/Creatinine Ratio (12.00-20.00) Ratio Glucose (70-110) mg/dL POC Glucose (mg/dL) 211 H (75-99) mg/dL Calcium (8.7-10.3) mg/dL 11/24/20 11/24/20 11/24/20 Range/Units 06:00 06:44 11:37 WBC (4.50-10.00) X 10*3/uL RBC (4.40-5.60) X 10*6/uL Hgb (13.0-17.0) g/dL Hct (39.6-50.0) % Absolute Nucleated RBC (0.00-0.00) X 10*3/uL Immature Gran # (0.00-0.04) X 10*3/uL Neutrophils # (1.80-7.70) X 10*3/uL Lymphocytes # (0.90-5.00) X 10*3/uL Monocytes # (0.20-1.00) X 10*3/uL Eosinophils # (0.04-0.35) X 10*3/uL NRBC/100 WBC Diff (0.0-0.0) /100 WBCS Potassium 3.3 L (3.5-5.1) mmol/L BUN/Creatinine Ratio 28.89 H (12.00-20.00) Ratio Glucose 123 H (70-110) mg/dL POC Glucose (mg/dL) 131 H (75-99) mg/dL Calcium 8.1 L (8.7-10.3) mg/dL 11/24/20 11/24/20 Range/Units 11:52 16:59 WBC (4.50-10.00) X 10*3/uL RBC (4.40-5.60) X 10*6/uL Hgb (13.0-17.0) g/dL Hct (39.6-50.0) % Absolute Nucleated RBC (0.00-0.00) X 10*3/uL Immature Gran # (0.00-0.04) X 10*3/uL Neutrophils # (1.80-7.70) X 10*3/uL Lymphocytes # (0.90-5.00) X 10*3/uL Monocytes # (0.20-1.00) X 10*3/uL Eosinophils # (0.04-0.35) X 10*3/uL NRBC/100 WBC Diff (0.0-0.0) /100 WBCS Potassium (3.5-5.1) mmol/L BUN/Creatinine Ratio (12.00-20.00) Ratio Glucose (70-110) mg/dL POC Glucose (mg/dL) 175 H 187 H (75-99) mg/dL Calcium (8.7-10.3) mg/dL Assessment and Plan Assessment: Generalized weakness and fatigue with elevated fever. Seems pseudo-MS exacerbation from underlying infection (cellulitis) --weakness improving Acute cellulitis of bilateral lower extremities History of multiple sclerosis Plan: * CT head is reported as No acute intracranial hemorrhage or midline shift. There is mild to moderate diffuse age related cerebral atrophy and mild chronic small vessel ischemic change noted. * MRI brain w/ and w/o is reported as correlated for multiple sclerosis. No enhancing plaque evident. * MRI Cervical spine s/ and w/o: It is reported as Degenerative disc disease and multilevel foraminal enroachment. Extensive artifact throughout present. No definitive abnormal cord signal. * Even though the patient has no new lesion evident on the MRI I started the patient on IV Solu-Medrol 500mg every 12 hours for 3-5 day (started on 11/21/20 at 20:00 received first dose) His pm dose today would be start of day 3. Recommend completing all 5 days (last day would be on 11/26 after AM dose). * Physical therapy and occupational therapy are on board. * Patient is on ceftriaxone and vancomycin. * Infection disease team are on board. * Is on Protonix IV daily since on IV steroid for GI prophylaxis * Will defer rest of medical management to the primary team. * In my opinion the patient will benefit from rehab therapy. * Upon discharge the patient needs to follow-up with his Neurologist within 1-2 week. Will follow-up with the patient sporadically. The plan is discussed with the patient's nurse. Joseluis Oquendo MD Neuro-Hospitalist Time with Patient: Less than 30
--- NOTE | 2020-11-24 19:36 | PN ---
PROGRESS NOTE DATE OF SERVICE: 11/24/2020 REASON FOR FOLLOWUP: Bilateral lower extremity cellulitis and streptococcal bacteremia. INTERVAL HISTORY: The patient is currently afebrile. He is breathing comfortably. Still complaining of not being able to move his arm. No chest pain, shortness of breath or cough. No abdominal pain or pain to the lower extremity. PHYSICAL EXAMINATION: Blood pressure 142/68 with a pulse of 76, temperature 97.5. He is 91% on room air. General description is a middle-aged male lying in bed in no distress. RESPIRATORY SYSTEM: Unlabored breathing. Clear to auscultation anteriorly. HEART: S1, S2. Regular rate and rhythm. ABDOMEN: Soft. No tenderness. Bilateral leg swelling persists. Redness has decreased. LABS: Hemoglobin is 11.1, white count 20.31. BUN of 26, creatinine 0.9. DIAGNOSTIC IMPRESSION AND PLAN: Patient with bilateral lower extremity cellulitis in this patient who did have evidence of streptococcal bacteremia. Dopplers were negative for DVT. Continue with cefazolin and monitor his clinical course closely. Continue supportive care. MMODL / IJN: [id number] /
[2020-11-24 21:19] LABS: Glucose,Whole Blood 137 mg/dL (75-99)
[2020-11-25] MEDS: BACLOFEN 10 MG TAB PO SCH ×5 (05:42→23:38)
[2020-11-25 07:41] LABS: Glucose,Whole Blood 124 mg/dL (75-99)
[2020-11-25] MEDS: PANTOPRAZOLE 40 MG TABLET PO SCH (08:24)
[2020-11-25] MEDS: HEPARIN SODIUM,PORCINE/PF 5,000 UNIT/0.5 ML SYRINGE SQ SCH ×2 (08:24→21:45)
[2020-11-25] MEDS: INSULIN ASPART (NovoLOG) 100 UNIT/ML VIAL SQ SCH ×4 (08:24→21:46)
[2020-11-25] MEDS: DOCUSATE 100 MG CAP PO SCH ×2 (08:24→21:45)
[2020-11-25] MEDS: FUROSEMIDE 20 MG TAB PO SCH (08:24)
[2020-11-25] MEDS: CHOLECALCIFEROL 25 MCG (1000 IU) TABLET PO SCH (08:24)
[2020-11-25] MEDS: OXYBUTYNIN XL 5 MG TAB.ER.24 PO SCH (08:24)
[2020-11-25] MEDS: ASPIRIN 81 MG PO SCH (08:24)
[2020-11-25] MEDS: SENNOSIDES 8.6 MG TAB PO SCH ×2 (08:25→21:45)
[2020-11-25] MEDS: FAMOTIDINE 20 MG TAB PO SCH ×2 (08:25→21:45)
[2020-11-25 11:39] LABS: Glucose,Whole Blood 242 mg/dL (75-99)
[2020-11-25] MEDS: traMADol 50 MG TAB PO PRN (16:53)
[2020-11-25 17:12] LABS: Glucose,Whole Blood 170 mg/dL (75-99)
--- NOTE | 2020-11-25 18:12 | PN ---
PROGRESS NOTE DATE OF SERVICE: 11/25/2020 REASON FOR FOLLOWUP: Group G strep bacteremia with bilateral lower extremity cellulitis. INTERVAL HISTORY: The patient is currently afebrile. The patient is breathing comfortably. The patient denies having any chest pain. No shortness of breath or cough. No abdominal pain or pain to the lower extremity. PHYSICAL EXAMINATION: Blood pressure 158/75 with a pulse of 67, temperature 97.7. He is 93% on room air. General description is a middle-aged male lying in in no distress. Respiratory system: Unlabored breathing, clear to auscultation anteriorly. Heart S1, S2. Regular rate and rhythm. Abdomen soft, no tenderness. Extremities: Leg swelling persists but redness has slightly decreased. LABS: No new labs been obtained today. DIAGNOSTIC IMPRESSION AND PLAN: Patient with bilateral lower extremity cellulitis with Streptococcus group G bacteremia. Patient is covered with cefazolin, to continue. Will monitor clinical course closely. Continue supportive care. MMODL / IJN: [id number] /
[2020-11-25] MEDS ORDERED: LACTULOSE 20 GM/30 ML CUP PO ONE (18:15)
--- NOTE | 2020-11-25 20:33 | PN ---
PROGRESS NOTE DATE OF SERVICE: 11/25/2020 This 65-year-old gentleman admitted with multiple sclerosis acute exacerbation, also on high-dose IV steroids. The patient is also planned to be sent to ECF rehab. The patient also had bilateral leg cellulitis and beta-hemolytic group G sepsis was also noted in the blood cultures. The most recent blood cultures on November 20 were also positive. PAST MEDICAL HISTORY: Reviewed. REVIEW OF SYSTEMS: CARDIOVASCULAR SYSTEM: No angina. RESPIRATORY SYSTEM: As mentioned earlier. GI: As mentioned earlier. NERVOUS SYSTEM: No numbness or weakness. CURRENT MEDICATIONS: Reviewed include Tylenol, aspirin, Lioresal, cefazolin, Colace, Pepcid. Other dose and medications reviewed. PHYSICAL EXAMINATION: Patient is alert and oriented x2. Pulse 67, blood pressure 150/70, respirations 16, temperature 97.7, pulse ox 93% on room air. HEENT: Conjunctivae normal. Oral mucosa moist. NECK: No jugular venous distention. No lymph node enlargement. CARDIOVASCULAR: S1, S2, muffled. No S3, no S4, RESPIRATORY: Diminished breath sounds at the bases. A few scattered rhonchi and crackles. ABDOMEN: Soft, nontender. LEGS: No edema, no swelling. NERVOUS SYSTEM: Diffusely weak. LABS: At this time shows Accu-Cheks 124, 242 and 170. WBC 20.2, hemoglobin 11.2. ASSESSMENT: 1. Acute bilateral leg cellulitis and as well as beta hemolytic Streptococcus group G sepsis. 2. Possible acute multiple sclerosis acute exacerbation. 3. Gait dysfunction. 4. Chronic left leg deep vein thrombosis. 5. Acute UTI secondary to right kidney stone 3 mm. 6. Generalized weakness. 7. Increased WBC. 8. Anemia, normocytic anemia of chronic disease. 9. Hypokalemia. 10.Elevated random glucose. 11.Remote history of nicotine dependence. 12.FULL CODE. RECOMMENDATIONS AND DISCUSSION: This 65-year-old gentleman who presented with multiple complex medical issues as mentioned earlier. I would recommend to continue the current medications, continue with high-dose IV steroids, continue the IV antibiotics. Recommend repeat cultures. Repeat labs. Closely follow with Dr. Monk and as well as Neurology. Prognosis guarded. Once the patient is improved, PT/OT evaluation and ECF rehab. Further recommendations to follow. MMODL / IJN: [id number] /
[2020-11-25 21:34] LABS: Glucose,Whole Blood 159 mg/dL (75-99)
[2020-11-26] MEDS: BACLOFEN 10 MG TAB PO SCH ×5 (05:31→23:47)
[2020-11-26 07:13] LABS: Glucose,Whole Blood 146 mg/dL (75-99)
[2020-11-26] MEDS: FUROSEMIDE 20 MG TAB PO SCH (08:18)
[2020-11-26] MEDS: SENNOSIDES 8.6 MG TAB PO SCH ×2 (08:18→21:33)
[2020-11-26] MEDS: OXYBUTYNIN XL 5 MG TAB.ER.24 PO SCH (08:18)
[2020-11-26] MEDS: DOCUSATE 100 MG CAP PO SCH ×2 (08:19→21:33)
[2020-11-26] MEDS: FAMOTIDINE 20 MG TAB PO SCH ×2 (08:19→21:33)
[2020-11-26] MEDS: CHOLECALCIFEROL 25 MCG (1000 IU) TABLET PO SCH (08:19)
[2020-11-26] MEDS: POTASSIUM CHLORIDE ER 10 MEQ TAB.ER.PRT PO SCH (08:19)
[2020-11-26] MEDS: MULTIVITAMINS, THERA 1 EACH TAB PO SCH (08:19)
[2020-11-26] MEDS: INSULIN ASPART (NovoLOG) 100 UNIT/ML VIAL SQ SCH ×4 (08:19→21:33)
[2020-11-26] MEDS: ASPIRIN 81 MG PO SCH (08:19)
[2020-11-26] MEDS: MAGNESIUM OXIDE 400 MG TAB PO SCH (08:19)
[2020-11-26] MEDS: PANTOPRAZOLE 40 MG TABLET PO SCH (08:19)
[2020-11-26] MEDS: HEPARIN SODIUM,PORCINE/PF 5,000 UNIT/0.5 ML SYRINGE SQ SCH ×2 (08:20→21:33)
[2020-11-26 09:18] LABS: HCT 35.7 % (39.6-50.0); HGB 11.5 g/dL (13.0-17.0); MCH 29.5 pg (27.0-32.0); MCHC 32.2 g/dL (32.0-37.0); MCV 91.5 fL (80.0-97.0); Mean Platelet Volume 11.2 fL (9.5-12.2); Platelet Count 233 X 10*3/uL (140-440); RDW 13.5 % (11.5-14.5); WBC 15.22 X 10*3/uL (4.50-10.00)
[2020-11-26 10:04] LABS: Basophils # (M) 0 X 10*3/uL (0.00-0.10); Eosinophils # (M) 0 X 10*3/uL (0.04-0.35); Lymphocytes # (M) 1.07 X 10*3/uL (0.90-5.00); Monocytes # (M) 0.61 X 10*3/uL (0.20-1.00); Neutrophils # (M) 13.55 X 10*3/uL (2.00-8.90); Neutrophils % (M) 89 %
[2020-11-26 10:13] LABS: African American GFR (CKD) 110.2 (60.0-200.0); Anion Gap 9.1 mmol/L (4.00-12.00); BUN/Creat Ratio 38.75 Ratio (12.00-20.00); Calcium 8.3 mg/dL (8.7-10.3); Carbon Dioxide 30.9 mmol/L (21.6-31.8); Magnesium 2.1 mg/dL (1.5-2.4); Non-African American GFR(CKD) 95.1 (60.0-200.0)
[2020-11-26] MEDS: FOLIC ACID 1 MG TAB PO SCH (10:53)
[2020-11-26] MEDS: THIAMINE 100 MG TAB PO SCH (10:54)
--- NOTE | 2020-11-26 11:35 | XR ---
EXAMINATION TYPE: XR chest 1V portable DATE OF EXAM: 11/26/2020 COMPARISON: Chest x-ray 11/20/2020 HISTORY: Shortness of breath TECHNIQUE: Single frontal view of the chest is obtained. FINDINGS: Biapical pleural thickening is again noted. No evident pneumothorax or pleural effusion. P atchy basilar density has developed on the right. Interstitium is increased. Cardiac mediastinal silh ouette is likely stable accounting for differences in technique. IMPRESSION: There may be basilar atelectasis or pneumonia, difficult to exclude effusion, suspect un derlying interstitial lung disease, patient with known emphysema
[2020-11-26 12:09] LABS: Glucose,Whole Blood 122 mg/dL (75-99)
[2020-11-26 16:46] LABS: Glucose,Whole Blood 225 mg/dL (75-99)
--- NOTE | 2020-11-26 18:50 | PN ---
PROGRESS NOTE DATE OF SERVICE: 11/26/2020 REASON FOR FOLLOWUP: Bilateral lower extremity cellulitis, streptococcal bacteremia. INTERVAL HISTORY: The patient is currently afebrile. The patient is breathing comfortably. Denies having any chest pain. No shortness of breath. No abdominal pain or pain to the lower extremity. PHYSICAL EXAMINATION: Blood pressure 135/76, pulse of 71, temperature 98. He is 94% on 2 L nasal cannula. General description is an elderly male lying in in no distress. Respiratory system: Unlabored breathing, clear to auscultation anteriorly. Heart S1, S2. Regular rate and rhythm. Abdomen soft, no tenderness. Leg still has some swelling and redness has improved. LABS: Hemoglobin 9.5, white count 15.2, BUN of 31, creatinine 0.8. DIAGNOSTIC IMPRESSION AND PLAN: 1. Patient with streptococcal bacteremia, bilateral lower extremity cellulitis and this patient has overall improvement on cefazolin. Finish therapy with oral Keflex. 2. Elevated white count, more likely steroid effect. No evidence of any worsening infection. Family at the bedside. Questions were answered. MMODL / IJN: [id number] /
--- NOTE | 2020-11-26 20:05 | PN ---
PROGRESS NOTE DATE OF SERVICE: 11/26/2020 INTERVAL HISTORY: This is a 65-year-old gentleman who was admitted with acute bilateral leg cellulitis as well as hemolytic Streptococcus group G sepsis. Also had possible multiple sclerosis exacerbation. Patient started on IV steroids also. The patient complained of generalized weakness and tiredness. The most recent chest x-ray which was done today reviewed personally by me showed mostly atelectasis on the right side. The patient is on broad-spectrum IV antibiotics also. No chest pain. No palpitations. No fever. The most recent blood cultures on November 20 is positive. PAST MEDICAL HISTORY: Reviewed. REVIEW OF SYSTEMS: CARDIOVASCULAR: No angina or palpitations. RESPIRATORY: As mentioned earlier. GI: No nausea or vomiting. : No dysuria. NERVOUS SYSTEM: No numbness or weakness. CURRENT MEDICATIONS: Reviewed include Tylenol, aspirin, cefazolin, vitamin D3, Colace, Peptic, folic acid. Doses reviewed. PHYSICAL EXAMINATION: GENERAL: Patient is alert and oriented times three. VITAL SIGNS: Pulse 71, blood pressure 135/76, respirations 18, temperature 98, pulse ox 94% on 2 liters. HEENT: Conjunctivae normal. NECK: No jugular venous distention. No carotid bruits. No lymph node enlargement. RESPIRATORY: Breath sounds diminished at the bases. A few scattered rhonchi. HEART: S1 and S2, muffled. ABDOMEN: Soft, no tenderness. No masses palpable. EXTREMITIES: No edema, no swelling. Leg cellulitis. NERVOUS: Diffusely weak. LAB: WBC 15.2, hemoglobin 11.5, glucose noted 122 and 225. ASSESSMENT: 1. Acute bilateral leg cellulitis as well as beta hemolytic Streptococcus group G sepsis. 2. Possible acute multiple sclerosis acute exacerbation. 3. Gait dysfunction. 4. Chronic left leg deep vein thrombosis. 5. Acute urinary tract infection secondary to right kidney stone 3 mm. 6. Generalized weakness. 7. Increased WBC. 8. Anemia, normocytic anemia of chronic disease. 9. Hypokalemia. 10.Elevated random glucose, possibly secondary to steroids. 11.Remote history of nicotine dependence. 12.FULL CODE. RECOMMENDATION AND DISCUSSION: We will continue current medications, continue with symptomatic treatment. Continue insulin scale at this time. Otherwise continue with antibiotics. Repeat blood cultures have been ordered yesterday and today. We will continue to monitor. Further recommendations to follow. MMODL / IJN: [id number] / MTDD
[2020-11-26 21:29] LABS: Glucose,Whole Blood 212 mg/dL (75-99)
[2020-11-26] MEDS: traMADol 50 MG TAB PO PRN (23:46)
[2020-11-27] MEDS: ACETAMINOPHEN TAB 325 MG TAB PO PRN ×2 (02:01→18:12)
[2020-11-27] MEDS: BACLOFEN 10 MG TAB PO SCH ×5 (05:07→23:38)
[2020-11-27 07:25] LABS: Glucose,Whole Blood 104 mg/dL (75-99)
[2020-11-27] MEDS: INSULIN ASPART (NovoLOG) 100 UNIT/ML VIAL SQ SCH ×4 (07:32→21:22)
[2020-11-27] MEDS: SENNOSIDES 8.6 MG TAB PO SCH ×2 (08:38→21:26)
[2020-11-27] MEDS: DOCUSATE 100 MG CAP PO SCH ×2 (08:38→21:26)
[2020-11-27] MEDS: OXYBUTYNIN XL 5 MG TAB.ER.24 PO SCH (08:38)
[2020-11-27] MEDS: MAGNESIUM OXIDE 400 MG TAB PO SCH (08:38)
[2020-11-27] MEDS: MULTIVITAMINS, THERA 1 EACH TAB PO SCH (08:38)
[2020-11-27] MEDS: FUROSEMIDE 20 MG TAB PO SCH (08:38)
[2020-11-27] MEDS: FAMOTIDINE 20 MG TAB PO SCH ×2 (08:38→21:26)
[2020-11-27] MEDS: PANTOPRAZOLE 40 MG TABLET PO SCH (08:38)
[2020-11-27] MEDS: POTASSIUM CHLORIDE ER 10 MEQ TAB.ER.PRT PO SCH (08:38)
[2020-11-27] MEDS: ASPIRIN 81 MG PO SCH (08:38)
[2020-11-27] MEDS: CHOLECALCIFEROL 25 MCG (1000 IU) TABLET PO SCH (08:38)
[2020-11-27] MEDS: HEPARIN SODIUM,PORCINE/PF 5,000 UNIT/0.5 ML SYRINGE SQ SCH ×2 (08:38→21:26)
[2020-11-27 12:00] LABS: Glucose,Whole Blood 103 mg/dL (75-99)
[2020-11-27] MEDS: THIAMINE 100 MG TAB PO SCH (12:10)
[2020-11-27] MEDS: FOLIC ACID 1 MG TAB PO SCH (12:10)
[2020-11-27] MEDS: LACTULOSE 20 GM/30 ML CUP PO SCH ×2 (12:57→17:06)
[2020-11-27 17:18] LABS: Glucose,Whole Blood 122 mg/dL (75-99)
[2020-11-27 21:24] LABS: Glucose,Whole Blood 134 mg/dL (75-99)
[2020-11-27] MEDS: traMADol 50 MG TAB PO PRN (21:26)
[2020-11-27 23:03] LABS: African American GFR (CKD) 110.2 (60.0-200.0); Albumin/Globulin Ratio 1.36 (1.60-3.17); Anion Gap 6.9 mmol/L (4.00-12.00); BUN/Creat Ratio 38.75 Ratio (12.00-20.00); Carbon Dioxide 32.1 mmol/L (21.6-31.8); Globulin 2.2 g/dL (1.6-3.3); Non-African American GFR(CKD) 95.1 (60.0-200.0); Potassium 4.6 mmol/L (3.5-5.5); Total Bilirubin 0.3 mg/dL (0.3-1.2); Total Protein 5.2 g/dL (6.2-8.2)
--- NOTE | 2020-11-27 23:34 | PN ---
PROGRESS NOTE DATE OF SERVICE: 11/27/2020 This 65-year-old gentleman admitted with multiple sclerosis, acute exacerbation, bilateral leg cellulitis, sepsis, is being closely monitored. Possible ECF rehab is being planned. The most recent chest x-ray which was done yesterday which was personally reviewed by me showed some minimal increase in the bronchovascular markings. No chest pain. No palpitations. No fever. PHYSICAL EXAMINATION: Alert and oriented times three. Pulse 69, blood pressure 135/79, respiration 20, temperature 97.2, pulse ox 98% on room air. HEENT: Conjunctivae normal. CARDIOVASCULAR: S1, S2 muffled. RESPIRATORY: Breath sounds diminished in the bases. A few scattered rhonchi. ABDOMEN: Soft. NERVOUS SYSTEM: No focal deficits. LABS: Accu-Cheks 103. Other labs: WBC 15.2, hemoglobin 11.5. Most recent cultures are negative so far. ASSESSMENT: 1. Acute bilateral leg cellulitis as well as beta-hemolytic Streptococcus group G sepsis. 2. Acute multiple sclerosis, acute exacerbation. 3. Gait dysfunction, multifactorial. 4. Chronic left leg deep vein thrombosis. 5. Acute urinary tract infection secondary to right kidney stone 3 mm and generalized weakness. 6. Increased WBC. 7. Anemia, normocytic anemia of chronic disease. 8. Hypokalemia. 9. Elevated random glucose, possibly secondary to steroids. 10.Remote history of nicotine dependence. 11.FULL CODE. 12.Gait dysfunction. RECOMMENDATIONS AND DISCUSSION: Continue current medications, continue the symptomatic treatment, continue the antibiotics. Otherwise, once the patient is improved and stabilized, ECF rehab. We will closely follow with Infectious Disease. Guarded prognosis. Further recommendations to follow. MMODL / IJN: [id number] /
--- NOTE | 2020-11-28 00:19 | PN ---
PROGRESS NOTE DATE OF SERVICE: 11/27/2020 REASON FOR FOLLOWUP VISIT: Streptococcal bacteremia, bilateral lower extremity cellulitis. INTERVAL HISTORY: Patient is currently afebrile. The patient is breathing comfortably. Patient denies having any chest pain. No shortness of breath or cough. No nausea, vomiting, abdominal pain or pain to the lower extremity. PHYSICAL EXAMINATION: Blood pressure 135/79 with a pulse of 69, temperature 98.9. He is 92% on room air. General description: The patient is a middle-aged male lying in bed in no distress. Respiratory system: Unlabored breathing clear to auscultation anteriorly. Heart S1, S2. Regular rate and rhythm. Abdomen soft, no tenderness. Lower extremities swelling and redness has improved. LABS: Repeat blood culture remains to be negative so far. White count was [phone] yesterday. DIAGNOSTIC IMPRESSION AND PLAN: Patient with streptococcal bacteremia, , likely bilateral lower extremity cellulitis. The patient is currently on cefazolin to continue with the blood cultures negative, to finish therapy with oral antibiotics when stable. Continue supportive care. MMODL / IJN: [id number] /
[2020-11-28] MEDS: BACLOFEN 10 MG TAB PO SCH ×3 (05:26→15:27)
[2020-11-28] MEDS: traMADol 50 MG TAB PO PRN ×2 (05:26→15:31)
[2020-11-28 06:47] LABS: Glucose,Whole Blood 90 mg/dL (75-99)
[2020-11-28] MEDS: INSULIN ASPART (NovoLOG) 100 UNIT/ML VIAL SQ SCH ×3 (07:12→17:32)
[2020-11-28] MEDS: HEPARIN SODIUM,PORCINE/PF 5,000 UNIT/0.5 ML SYRINGE SQ SCH (09:54)
[2020-11-28] MEDS: POTASSIUM CHLORIDE ER 10 MEQ TAB.ER.PRT PO SCH (09:55)
[2020-11-28] MEDS: FUROSEMIDE 20 MG TAB PO SCH (09:55)
[2020-11-28] MEDS: SENNOSIDES 8.6 MG TAB PO SCH (09:55)
[2020-11-28] MEDS: ASPIRIN 81 MG PO SCH (09:55)
[2020-11-28] MEDS: MULTIVITAMINS, THERA 1 EACH TAB PO SCH (09:55)
[2020-11-28] MEDS: DOCUSATE 100 MG CAP PO SCH (09:55)
[2020-11-28] MEDS: MAGNESIUM OXIDE 400 MG TAB PO SCH (09:55)
[2020-11-28] MEDS: PANTOPRAZOLE 40 MG TABLET PO SCH (09:56)
[2020-11-28] MEDS: FAMOTIDINE 20 MG TAB PO SCH (09:56)
[2020-11-28] MEDS: CHOLECALCIFEROL 25 MCG (1000 IU) TABLET PO SCH (09:56)
[2020-11-28] MEDS: OXYBUTYNIN XL 5 MG TAB.ER.24 PO SCH (09:56)
[2020-11-28 11:26] LABS: HCT 38.2 % (39.6-50.0); HGB 12.2 g/dL (13.0-17.0); MCH 30.3 pg (27.0-32.0); MCHC 31.9 g/dL (32.0-37.0); Platelet Count 309 X 10*3/uL (140-440); RBC 4.02 X 10*6/uL (4.40-5.60); RDW 13.7 % (11.5-14.5); WBC 9.83 X 10*3/uL (4.50-10.00)
[2020-11-28 11:41] LABS: Glucose,Whole Blood 94 mg/dL (75-99)
[2020-11-28] MEDS: THIAMINE 100 MG TAB PO SCH (12:05)
[2020-11-28] MEDS: FOLIC ACID 1 MG TAB PO SCH (12:05)
[2020-11-28 12:23] LABS: Eosinophils # (M) 0 X 10*3/uL (0.04-0.35); Lymphocytes # (M) 0.88 X 10*3/uL (0.90-5.00); Monocytes # (M) 0.49 X 10*3/uL (0.20-1.00); Neutrophils # (M) 8.45 X 10*3/uL (2.00-8.90); Neutrophils % (M) 86 %
[2020-11-28 12:24] LABS: Basophils # (M) 0 X 10*3/uL (0.00-0.10)
--- NOTE | 2020-11-28 13:37 | XR ---
EXAMINATION TYPE: XR chest 1V portable DATE OF EXAM: 11/28/2020 COMPARISON: Chest x-ray 11/26/2020 HISTORY: Shortness of breath TECHNIQUE: Single frontal view of the chest is obtained. FINDINGS: Findings are similar to prior exam. IMPRESSION: Correlate for pneumonia, possible underlying interstitial lung disease. Patient with kno wn emphysema.
[2020-11-28 13:57] VITALS: BP 140/89; PULSE 73; RESP 17; TEMP 98.1
--- NOTE | 2020-11-28 14:12 | P.DS ---
Providers Date of admission: 11/20/20 13:14 Expected date of discharge: 11/28/20 Attending physician: Sam Greco MD Consults: 11/20/20 13:15 Consult Physician Routine Consulting Provider: Joseluis Oquendo Consult Reason/Comments: MS exacerbation Do you want consulting provider notified?: Yes Consult Physician Routine Consulting Provider: Margarita Monk Consult Reason/Comments: Fever Do you want consulting provider notified?: Yes Primary care physician: Shawn Galarza Hospital Course: Final diagnosis Acute bilateral leg cellulitis as well as beta-hemolytic Streptococcus group G sepsis Acute multiple sclerosis, acute exacerbation Gait dysfunction, multifactorial Chronic left leg deep vein thrombosis Acute urinary tract infection secondary to right kidney stone 3 mm and generalized weakness Increased white blood count Anemia, normocytic anemia of chronic disease Hypokalemia Elevated random glucose, possibly secondary to steroids History of COPD Remote history of nicotine dependence Full code Gait dysfunction Discharge disposition Patient is being discharged in a stable condition with guarded prognosis to [facility] for continued PT/OT therapy. Patient will follow-up with Dr. Calista Galarza upon discharge. Patient will continue with a short course of oral antibiotics in the form of Keflex 500 mg every 6 hours for the next 10 days and then may discontinue. Patient will also follow at the wound center with Dr. Monk in the outpatient setting. Total time taken is greater than 35 minutes. Hospital course This is a 65-year-old male who was recently admitted with multiple sclerosis, acute exacerbation along with bilateral leg cellulitis and sepsis present on admission and was being closely monitored. Infectious disease following and patient was maintained on IV antibiotics and will transition to oral Keflex 500 mg every 6 hours for the next 10 days and then may discontinue. Most recent repeat blood cultures have remained negative Patient will need outpatient wound center follow-up. Recommend repeat labs in a few days to monitor kidney functions closely. Recommend continuing to monitor Accu-Cheks before meals and at bedtime and treat accordingly with sliding scale insulin continue with consistent carb diet. Also recommend to continue with breathing inhalational treatments in the form of DuoNeb 3 times daily along with as needed. Currently no reports of chest pain, shortness of breath, or palpitations. Patient is afebrile. No reports of nausea or vomiting and patient is tolerating diet. Patient will be going to [facility]. Guarded prognosis. On exam vital signs are stable. Cardio S1, S2 are muffled. Respiratory shows diminished breath sounds at the bases with a few scattered rhonchi noted. Abdomen is soft and nontender. Nervous system shows mild diffuse weakness. Please refer to medication reconciliation sheet for a list of medications. Patient Condition at Discharge: Stable Plan - Discharge Summary Discharge Rx Participant: No New Discharge Prescriptions: New Folic Acid 1 mg PO DAILY@1200 tab Cephalexin [Keflex] 500 mg PO Q6HR 10 Days #40 cap Famotidine [Pepcid] 20 mg PO Q12HR tab Acetaminophen Tab [Tylenol] 650 mg PO Q6HR PRN tab PRN Reason: Mild Pain Or Fever > 100.5 Ipratropium-Albuterol Nebulize [Duoneb 0.5 mg-3 mg/3 ml Soln] 3 ml INHALATION TID PRN #120 neb PRN Reason: Shortness Of Breath Docusate [Colace] 100 mg PO BID cap Magnesium Oxide [Mag-Ox] 400 mg PO DAILY tab polyethylene glycoL 3350 [Miralax] 17 gm PO DAILY PRN powd.pack PRN Reason: Constipation INSULIN ASPART (NovoLOG) [NovoLOG (formulary)] 0 unit SQ ACHS vial Pantoprazole [Protonix] 40 mg PO AC-BRKFST tablet.dr [place] [Senokot] 8.6 mg PO BID tab traMADol HCl [Ultram] 50 mg PO QID PRN #6 tab PRN Reason: Breakthrough Pain Thiamine [Vitamin B-1] 100 mg PO DAILY@1200 tab Ipratropium-Albuterol Nebulize [Duoneb 0.5 mg-3 mg/3 ml Soln] 3 ml INHALATION TID #120 neb Continue Oxybutynin Chloride [Ditropan XL] 5 mg PO DAILY Cholecalciferol (Vitamin D3) [Vitamin D3 (5000 Iu)] 125 mcg PO DAILY Furosemide [Lasix] 60 mg PO DAILY Aspirin EC [Ecotrin Low Dose] 81 mg PO DAILY Potassium Chloride ER [K-Dur 10] 10 meq PO DAILY Multivitamins, Thera [Multivitamin (formulary)] 1 tab PO DAILY Lubiprostone [Amitiza] 24 mcg PO BID Baclofen 10 mg PO 5XD Discontinued Magnesium Oxide [Mag-Ox] 250 mg PO DAILY Ocrevus(Unknown) 1 dose IV Q180D Discharge Medication List Aspirin EC [Ecotrin Low Dose] 81 mg PO DAILY 11/20/20 [History] Baclofen 10 mg PO 5XD 11/20/20 [History] Cholecalciferol (Vitamin D3) [Vitamin D3 (5000 Iu)] 125 mcg PO DAILY 11/20/20 [History] Furosemide [Lasix] 60 mg PO DAILY 11/20/20 [History] Lubiprostone [Amitiza] 24 mcg PO BID 11/20/20 [History] Multivitamins, Thera [Multivitamin (formulary)] 1 tab PO DAILY 11/20/20 [History] Oxybutynin Chloride [Ditropan XL] 5 mg PO DAILY 11/20/20 [History] Potassium Chloride ER [K-Dur 10] 10 meq PO DAILY 11/20/20 [History] Acetaminophen Tab [Tylenol] 650 mg PO Q6HR PRN tab 11/28/20 [Rx] Cephalexin [Keflex] 500 mg PO Q6HR 10 Days #40 cap 11/28/20 [Rx] Docusate [Colace] 100 mg PO BID cap 11/28/20 [Rx] Famotidine [Pepcid] 20 mg PO Q12HR tab 11/28/20 [Rx] Folic Acid 1 mg PO DAILY@1200 tab 11/28/20 [Rx] INSULIN ASPART (NovoLOG) [NovoLOG (formulary)] 0 unit SQ ACHS vial 11/28/20 [Rx] Ipratropium-Albuterol Nebulize [Duoneb 0.5 mg-3 mg/3 ml Soln] 3 ml INHALATION TID #120 neb 11/28/20 [Rx] Ipratropium-Albuterol Nebulize [Duoneb 0.5 mg-3 mg/3 ml Soln] 3 ml INHALATION TID PRN #120 neb 11/28/20 [Rx] Magnesium Oxide [Mag-Ox] 400 mg PO DAILY tab 11/28/20 [Rx] Pantoprazole [Protonix] 40 mg PO AC-BRKFST tablet. 11/28/20 [Rx] Sennosides [Senokot] 8.6 mg PO BID tab 11/28/20 [Rx] Thiamine [Vitamin B-1] 100 mg PO DAILY@1200 tab 11/28/20 [Rx] polyethylene glycoL 3350 [Miralax] 17 gm PO DAILY PRN powd.pack 11/28/20 [Rx] traMADol HCl [Ultram] 50 mg PO QID PRN #6 tab 11/28/20 [Rx] Follow up Appointment(s)/Referral(s): Maikel Yeager, [NON-STAFF] - As Needed Shawn Galarza DO [Primary Care Provider] - 1-2 days Margarita Monk MD [STAFF PHYSICIAN] - 10 Days Ambulatory/Diagnostic Orders: Complete Blood Count w/diff [LAB.AMB] Time Frame: 2 Days, Location: None Selected Activity/Diet/Wound Care/Special Instructions: Patient is going to [facility] as tolerated continue with antibiotics for the next 10 days and then may discontinue follow up outpatient with infectious disease Repeat labs in 2-3 days to monitor CBC and BMP Continue with Accu-Cheks before meals and at bedtime NovoLog sliding scale 0-150 equals 0 units 151-200 equals 2 units 201-250 equals 4 units 251-300 equals 6 units 301-350 equals 8 units 351-400 equals 10 units Please notify provider if blood sugar is 400 or above Discharge Disposition: TRANSFER TO SNF/ECF
[2020-11-28 17:03] LABS: Glucose,Whole Blood 88 mg/dL (75-99)
--- NOTE | 2020-11-28 19:53 | PN ---
PROGRESS NOTE DATE OF SERVICE: 11/28/2020 REASON FOR FOLLOWUP: Bilateral lower extremity cellulitis with streptococcal bacteremia. INTERVAL HISTORY: Patient is currently afebrile. The patient is breathing comfortably. Denies having any chest pain. No shortness of breath or cough. No abdominal pain or diarrhea. PHYSICAL EXAMINATION: Blood pressure 140/89, pulse of 73, temperature 98.1, he is 97% on 2 L nasal cannula. General description is a middle-aged male lying in in no distress. Respiratory system: Unlabored breathing, clear to auscultation anteriorly. Heart S1, S2. Regular rate and rhythm. Abdomen soft, no tenderness. Lower extremity redness has improved. LABS: Hemoglobin is 12.1, white count 9.83. Repeat blood culture has been negative. IMPRESSION/PLAN: Patient with group G bacteremia, source likely bilateral lower extremity cellulitis. No evidence of any abscess. Repeat blood cultures have been negative. Overall improvement on cefazolin. Finish therapy with oral Keflex for another week and close outpatient followup. MMODL / IJN: [id number] /
== END 2020-11-28 18:39 | DRG 872 ==
LOC: EC 10:48 → 4SSUR 13:14
PROVIDERS: ADMIT Internal Medicine; ATTEND Internal Medicine
DX: A40.8 Other streptococcal sepsis (principal); L03.116 Cellulitis of left lower limb; I82.502 Chronic embolism and thrombosis of unspecified deep veins of left lower extremity; J98.11 Atelectasis; L03.115 Cellulitis of right lower limb; N12 Tubulo-interstitial nephritis, not specified as acute or chronic; E87.2 Acidosis; D63.8 Anemia in other chronic diseases classified elsewhere; E87.6 Hypokalemia; G35 Multiple sclerosis; K59.00 Constipation, unspecified; R26.9 Unspecified abnormalities of gait and mobility; N20.0 Calculus of kidney; R73.9 Hyperglycemia, unspecified; T38.0X5A Adverse effect of glucocorticoids and synthetic analogues, initial encounter; Z79.82 Long term (current) use of aspirin; Z79.899 Other long term (current) drug therapy; Z87.891 Personal history of nicotine dependence; Z99.3 Dependence on wheelchair; Z20.822 Contact with and (suspected) exposure to COVID-19
CPT/HCPCS: 36415; 70450; 70553; 71045; 72156; 76770; 80048; 80053; 81001; 83605; 83735; 84132; 85025; 87040; 87077; 87086; 87186; 87635; 93005; 93970; 94760; 96361; 96374; 96375; 99285

== ENCOUNTER 2020-11-29 05:32 | Inpatient (IN) | payer BC ==
--- NOTE | 2020-11-29 05:39 | ED ---
SOB HPI - General Chief Complaint: Shortness of Breath Stated Complaint: SOB Time Seen by Provider: 11/29/20 05:35 Source: patient, EMS, RN notes reviewed, old records reviewed Mode of arrival: EMS Limitations: physical limitation - History of Present Illness Initial Comments: This is a 65-year-old male DF for evaluation patient Dese for severe shortness of breath states he cannot catch his breath patient presents on oxygen not normally on oxygen. Patient is of recent hospital admission. Patient was discharged yesterday presents again today with sudden onset shortness of breath that his been persistent since he's been awake. Persists here in the ER. Patient states he cannot catch his breath his breathing very fast. MD Complaint: shortness of breath, cough, chest pain -: minutes(s) Severity: mild Severity scale (1-10): 3 Consistency: constant Improves With: nothing Worsens With: nothing Known History Of: COPD, asthma Context: recent URI Associated Symptoms: denies other symptoms - Related Data Home Medications Medication Instructions Recorded Confirmed Aspirin EC [Ecotrin Low Dose] 81 mg PO DAILY@0800 11/20/20 11/29/20 Baclofen 10 mg PO 5XD 11/20/20 11/29/20 Cholecalciferol (Vitamin D3) 125 mcg PO DAILY@1700 11/20/20 11/29/20 [Vitamin D3 (5000 Iu)] Furosemide [Lasix] 60 mg PO DAILY@0800 11/20/20 11/29/20 Lubiprostone [Amitiza] 24 mcg PO BID@0800,1700 11/20/20 11/29/20 Oxybutynin Chloride [Ditropan XL] 5 mg PO DAILY@0800 11/20/20 11/29/20 Potassium Chloride ER [K-Dur 10] 10 meq PO DAILY@0800 11/20/20 11/29/20 Docusate [Colace] 100 mg PO BID@0800,1700 11/29/20 11/29/20 Famotidine [Pepcid] 20 mg PO BID@0800,2100 11/29/20 11/29/20 INSULIN ASPART (NovoLOG) [NovoLOG See Protocol SQ ACHS 11/29/20 11/29/20 (formulary)] Ipratropium-Albuterol Nebulize 3 ml INHALATION RT-TID 11/29/20 11/29/20 [Duoneb 0.5 mg-3 mg/3 ml Soln] Ipratropium-Albuterol Nebulize 3 ml INHALATION RT-TID PRN 11/29/20 11/29/20 [Duoneb 0.5 mg-3 mg/3 ml Soln] Magnesium Hydroxide [Milk of 2,400 mg PO DAILY PRN 11/29/20 11/29/20 Magnesia] Magnesium Oxide [Mag-Ox] 400 mg PO DAILY@0800 11/29/20 11/29/20 Na Phos,M-B/Na Phos,Di-Ba [Fleet 133 ml RECTAL DAILY PRN 11/29/20 11/29/20 Adult] Nystatin 100,000 Unit/ml Susp 5 ml PO QID 11/29/20 11/29/20 [Mycostatin Oral Susp] Pantoprazole [Protonix] 40 mg PO DAILY@0800 11/29/20 11/29/20 Sennosides [Senokot] 8.6 mg PO BID@0800,1700 11/29/20 11/29/20 bisacodyL [Dulcolax] 10 mg RECTAL DAILY PRN 11/29/20 11/29/20 Previous Rx's Medication Instructions Recorded Acetaminophen Tab [Tylenol] 650 mg PO Q6HR PRN tab 11/28/20 Cephalexin [Keflex] 500 mg PO Q6HR 10 Days #40 cap 11/28/20 Folic Acid 1 mg PO DAILY@1200 tab 11/28/20 Thiamine [Vitamin B-1] 100 mg PO DAILY@1200 tab 11/28/20 polyethylene glycoL 3350 [Miralax] 17 gm PO DAILY PRN powd.pack 11/28/20 traMADol HCl [Ultram] 50 mg PO QID PRN #6 tab 11/28/20 Allergies Allergy/AdvReac Type Severity Reaction Status Date / Time No Known Allergies Allergy Verified 11/29/20 08:51 Review of Systems ROS Statement: Those systems with pertinent positive or pertinent negative responses have been documented in the HPI. ROS Other: All systems not noted in ROS Statement are negative. Past Medical History Past Medical History: Musculoskeletal Disorder Additional Past Medical History / Comment(s): MS 2012 dx, urinary retention History of Any Multi-Drug Resistant Organisms: None Reported Past Surgical History: No Surgical Hx Reported Past Anesthesia/Blood Transfusion Reactions: No Reported Reaction Past Psychological History: No Psychological Hx Reported Smoking Status: Former smoker Past Alcohol Use History: Occasional Past Drug Use History: None Reported - Past Family History Mother Family Medical History: No Reported History Additional Family Medical History / Comment(s): Mother is healthy and 86yrs old. Father Family Medical History: No Reported History Additional Family Medical History / Comment(s): Father is 90 yrs old. General Exam Limitations: physical limitation General appearance: alert, in no apparent distress Head exam: Present: atraumatic, normocephalic, normal inspection Eye exam: Present: normal appearance, PERRL, EOMI. Absent: scleral icterus, c onjunctival injection, periorbital swelling ENT exam: Present: normal exam, mucous membranes moist Neck exam: Present: normal inspection. Absent: tenderness, meningismus, lymphadenopathy Respiratory exam: Present: normal lung sounds bilaterally. Absent: respiratory distress, wheezes, rales, rhonchi, stridor Cardiovascular Exam: Present: regular rate, normal rhythm, normal heart sounds. Absent: systolic murmur, diastolic murmur, rubs, gallop, clicks GI/Abdominal exam: Present: soft, normal bowel sounds. Absent: distended, tenderness, guarding, rebound, rigid Extremities exam: Present: normal inspection, full ROM, normal capillary refill. Absent: tenderness, pedal edema, joint swelling, calf tenderness Back exam: Present: normal inspection Neurological exam: Present: alert, oriented X3, CN II-XII intact Psychiatric exam: Present: normal affect, normal mood Skin exam: Present: warm, dry, intact, normal color. Absent: rash Course Vital Signs 11/29/20 11/29/20 11/29/20 05:33 06:15 06:24 Temperature 98.3 F Pulse Rate 81 70 70 Respiratory 16 Rate Blood Pressure 125/80 O2 Sat by Pulse 97 Oximetry 11/29/20 11/29/20 11/29/20 07:28 09:24 09:31 Temperature 98.0 F Pulse Rate 87 83 Respiratory 20 24 Rate Blood Pressure 128/80 O2 Sat by Pulse 98 97 Oximetry 11/29/20 11/29/20 11/29/20 09:33 09:34 10:30 Temperature Pulse Rate 77 89 Respiratory 20 22 Rate Blood Pressure 140/88 O2 Sat by Pulse 98 98 Oximetry 11/29/20 11/29/20 11/29/20 11:00 11:30 12:00 Temperature Pulse Rate 88 92 96 Respiratory 19 18 15 Rate Blood Pressure 142/88 144/96 131/93 O2 Sat by Pulse 99 Oximetry 11/29/20 11/29/20 11/29/20 13:00 14:00 14:30 Temperature Pulse Rate 89 87 88 Respiratory 13 13 16 Rate Blood Pressure 147/101 127/87 129/86 O2 Sat by Pulse 99 100 100 Oximetry 11/29/20 11/29/20 11/29/20 15:00 15:30 15:44 Temperature Pulse Rate 93 87 91 Respiratory 22 12 Rate Blood Pressure 127/84 133/89 O2 Sat by Pulse 99 100 Oximetry 11/29/20 11/29/20 11/29/20 15:57 16:00 17:00 Temperature Pulse Rate 90 92 92 Respiratory 17 14 Rate Blood Pressure 138/89 138/89 O2 Sat by Pulse 100 100 Oximetry 11/29/20 11/29/20 11/29/20 18:00 19:59 20:06 Temperature Pulse Rate 95 86 88 Respiratory 22 Rate Blood Pressure 127/83 O2 Sat by Pulse 100 Oximetry - Reevaluation(s) Reevaluation #1: 11/29/20 06:42 medical record is reviewed Reevaluation #2: 11/29/20 06:48 Patient is still significantly short of breath despite breathing treatment Patient still breathing at a rapid rate, we'll have respiratory evaluate Medical Decision Making - Medical Decision Making 62 female DEL with severe shortness of breath patient will be admitted for s ymptom significant sudden onset of shortness of breath, positive for pneumonia, history of MS - Lab Data Result diagrams: 11/29/20 05:49 11/29/20 05:49 Lab Results 11/29/20 11/29/20 11/29/20 Range/Units 05:49 05:49 05:49 WBC 14.7 H (3.8-10.6) k/uL RBC 4.86 (4.30-5.90) m/uL Hgb 14.5 (13.0-17.5) gm/dL Hct 44.7 (39.0-53.0) % MCV 92.0 (80.0-100.0) fL MCH 29.9 (25.0-35.0) pg MCHC 32.5 (31.0-37.0) g/dL RDW 13.2 (11.5-15.5) % Plt Count 382 (150-450) k/uL MPV 7.2 Neutrophils % 85 % Lymphocytes % 6 % Monocytes % 5 % Eosinophils % 2 % Basophils % 1 % Neutrophils # 12.6 H (1.3-7.7) k/uL Lymphocytes # 0.9 L (1.0-4.8) k/uL Monocytes # 0.7 (0-1.0) k/uL Eosinophils # 0.3 (0-0.7) k/uL Basophils # 0.1 (0-0.2) k/uL PT 10.6 (9.0-12.0) sec INR 1.0 (<1.2) APTT 23.9 (22.0-30.0) sec Sample Site ABG pH (7.35-7.45) ABG pCO2 (35-45) mmHg ABG pO2 (83-108) mmHg ABG HCO3 (21-25) mmol/L ABG Total CO2 (19-24) mmol/L ABG O2 Saturation (94-97) % ABG Base Excess mmol/L Remigio Test FiO2 % Sodium 134 L (137-145) mmol/L Potassium 5.0 (3.5-5.1) mmol/L Chloride 100 (98-107) mmol/L Carbon Dioxide 31 H (22-30) mmol/L Anion Gap 3 mmol/L BUN 26 H (9-20) mg/dL Creatinine 0.93 (0.66-1.25) mg/dL Est GFR (CKD-EPI)AfAm >90 (>60 ml/min/1.73 sqM) Est GFR (CKD-EPI)NonAf 87 (>60 ml/min/1.73 sqM) Glucose 96 (74-99) mg/dL Calcium 8.5 (8.4-10.2) mg/dL Magnesium 2.4 H (1.6-2.3) mg/dL Total Bilirubin 0.7 (0.2-1.3) mg/dL AST 32 (17-59) U/L ALT 24 (4-49) U/L Alkaline Phosphatase 103 (38-126) U/L Troponin I (0.000-0.034) ng/mL NT-Pro-B Natriuret Pep pg/mL Total Protein 6.0 L (6.3-8.2) g/dL Albumin 3.2 L (3.5-5.0) g/dL Procalcitonin (0.02-0.09) ng/mL Coronavirus (PCR) (Not Detectd) 11/29/20 11/29/20 11/29/20 Range/Units 05:49 05:49 05:49 WBC (3.8-10.6) k/uL RBC (4.30-5.90) m/uL Hgb (13.0-17.5) gm/dL Hct (39.0-53.0) % MCV (80.0-100.0) fL MCH (25.0-35.0) pg MCHC (31.0-37.0) g/dL RDW (11.5-15.5) % Plt Count (150-450) k/uL MPV Neutrophils % % Lymphocytes % % Monocytes % % Eosinophils % % Basophils % % Neutrophils # (1.3-7.7) k/uL Lymphocytes # (1.0-4.8) k/uL Monocytes # (0-1.0) k/uL Eosinophils # (0-0.7) k/uL Basophils # (0-0.2) k/uL PT (9.0-12.0) sec INR (<1.2) APTT (22.0-30.0) sec Sample Site ABG pH (7.35-7.45) ABG pCO2 (35-45) mmHg ABG pO2 (83-108) mmHg ABG HCO3 (21-25) mmol/L ABG Total CO2 (19-24) mmol/L ABG O2 Saturation (94-97) % ABG Base Excess mmol/L Remigio Test FiO2 % Sodium (137-145) mmol/L Potassium (3.5-5.1) mmol/L Chloride (98-107) mmol/L Carbon Dioxide (22-30) mmol/L Anion Gap mmol/L BUN (9-20) mg/dL Creatinine (0.66-1.25) mg/dL Est GFR (CKD-EPI)AfAm (>60 ml/min/1.73 sqM) Est GFR (CKD-EPI)NonAf (>60 ml/min/1.73 sqM) Glucose (74-99) mg/dL Calcium (8.4-10.2) mg/dL Magnesium (1.6-2.3) mg/dL Total Bilirubin (0.2-1.3) mg/dL AST (17-59) U/L ALT (4-49) U/L Alkaline Phosphatase (38-126) U/L Troponin I <0.012 (0.000-0.034) ng/mL NT-Pro-B Natriuret Pep 198 pg/mL Total Protein (6.3-8.2) g/dL Albumin (3.5-5.0) g/dL Procalcitonin 0.15 H (0.02-0.09) ng/mL Coronavirus (PCR) (Not Detectd) 11/29/20 11/29/20 Range/Units 06:35 10:42 WBC (3.8-10.6) k/uL RBC (4.30-5.90) m/uL Hgb (13.0-17.5) gm/dL Hct (39.0-53.0) % MCV (80.0-100.0) fL MCH (25.0-35.0) pg MCHC (31.0-37.0) g/dL RDW (11.5-15.5) % Plt Count (150-450) k/uL MPV Neutrophils % % Lymphocytes % % Monocytes % % Eosinophils % % Basophils % % Neutrophils # (1.3-7.7) k/uL Lymphocytes # (1.0-4.8) k/uL Monocytes # (0-1.0) k/uL Eosinophils # (0-0.7) k/uL Basophils # (0-0.2) k/uL PT (9.0-12.0) sec INR (<1.2) APTT (22.0-30.0) sec Sample Site l rad ABG pH 7.46 H (7.35-7.45) ABG pCO2 39 (35-45) mmHg ABG pO2 77 L (83-108) mmHg ABG HCO3 28 H (21-25) mmol/L ABG Total CO2 29 H (19-24) mmol/L ABG O2 Saturation 95.3 (94-97) % ABG Base Excess 4.0 mmol/L Remigio Test Yes FiO2 36 % Sodium (137-145) mmol/L Potassium (3.5-5.1) mmol/L Chloride (98-107) mmol/L Carbon Dioxide (22-30) mmol/L Anion Gap mmol/L BUN (9-20) mg/dL Creatinine (0.66-1.25) mg/dL Est GFR (CKD-EPI)AfAm (>60 ml/min/1.73 sqM) Est GFR (CKD-EPI)NonAf (>60 ml/min/1.73 sqM) Glucose (74-99) mg/dL Calcium (8.4-10.2) mg/dL Magnesium (1.6-2.3) mg/dL Total Bilirubin (0.2-1.3) mg/dL AST (17-59) U/L ALT (4-49) U/L Alkaline Phosphatase (38-126) U/L Troponin I (0.000-0.034) ng/mL NT-Pro-B Natriuret Pep pg/mL Total Protein (6.3-8.2) g/dL Albumin (3.5-5.0) g/dL Procalcitonin (0.02-0.09) ng/mL Coronavirus (PCR) Not Detected (Not Detectd) - EKG Data -: EKG Interpreted by Me (EKG shows sinus rhythm 76 VA 132 QRS 78 QTc 432) - Radiology Data Radiology results: report reviewed (Chest x-rays negative for acute disease), image reviewed Critical Care Time Critical Care Time: Yes Total Critical Care Time: 31 Disposition Clinical Impression: Exacerbation of multiple sclerosis, UTI (urinary tract infection), Leukocytosis, Shortness of breath, Community acquired pneumonia Disposition: ADMITTED IP TO THIS HOSP Condition: Serious Is patient prescribed a controlled substance at d/c from ED?: No
[2020-11-29] MEDS ORDERED: SODIUM CHLORIDE 0.9% 1,000 ML IV STA (05:47)
[2020-11-29] MEDS ORDERED: IPRATROPIUM-ALBUTEROL 3 ML NEB INHALATION STA (05:47)
[2020-11-29 05:59] LABS: Basophils # (A) 0.1 k/uL (0-0.2); Basophils % (A) 1 %; Eosinophils # (A) 0.3 k/uL (0-0.7); Eosinophils % (A) 2 %; HCT 44.7 % (39.0-53.0); HGB 14.5 gm/dL (13.0-17.5); Lymphocytes # (A) 0.9 k/uL (1.0-4.8); Lymphocytes % (A) 6 %; MCH 29.9 pg (25.0-35.0); MCHC 32.5 g/dL (31.0-37.0); Mean Platelet Volume 7.2; Monocytes # (A) 0.7 k/uL (0-1.0); Monocytes % (A) 5 %; Neutrophils # (A) 12.6 k/uL (1.3-7.7); Neutrophils % (A) 85 %; Platelet Count 382 k/uL (150-450); RBC 4.86 m/uL (4.30-5.90); RDW 13.2 % (11.5-15.5); WBC 14.7 k/uL (3.8-10.6)
[2020-11-29 06:10] LABS: Partial Thromboplastin Time 23.9 sec (22.0-30.0); Prothrombin Time 10.6 sec (9.0-12.0)
[2020-11-29 06:16] LABS: ALT 24 U/L (4-49); AST 32 U/L (17-59); African American GFR (CKD) >90 (>60 ml/min/1.73 sqM); Albumin 3.2 g/dL (3.5-5.0); Alkaline Phosphatase 103 U/L (38-126); Anion Gap 3 mmol/L; Blood Urea Nitrogen 26 mg/dL (9-20); Calcium 8.5 mg/dL (8.4-10.2); Carbon Dioxide 31 mmol/L (22-30); Chloride 100 mmol/L (98-107); Glucose 96 mg/dL (74-99); Magnesium 2.4 mg/dL (1.6-2.3); Non-African American GFR(CKD) 87 (>60 ml/min/1.73 sqM); Sodium 134 mmol/L (137-145); Total Bilirubin 0.7 mg/dL (0.2-1.3)
[2020-11-29] MEDS ORDERED: IPRATROPIUM-ALBUTEROL 3 ML NEB INHALATION PRN (06:29)
[2020-11-29] MEDS ORDERED: MORPHINE SULFATE 4 MG/ML SYRINGE IVP STA (06:52)
[2020-11-29] MEDS ORDERED: MORPHINE SULFATE 4 MG/ML SYRINGE IVP PRN (06:52)
--- NOTE | 2020-11-29 06:55 | XR ---
EXAM: XR Chest, 1 View CLINICAL HISTORY: ITS.REASON XR Reason: difficulty breathing TECHNIQUE: Frontal view of the chest. COMPARISON: 11/28/20 FINDINGS: Lungs: Small amount of airspace opacities over bilateral lower lung zones Pleural space: Unremarkable. No pneumothorax. Heart: Unremarkable. No cardiomegaly. Mediastinum: Unremarkable. Bones/joints: Osteopenia. Moderate degenerative changes IMPRESSION: Small amount of bibasilar atelectasis and/or pneumonia
[2020-11-29] MEDS ORDERED: PNEUMONIA PROTOCOL UTILIZED 1 EACH MISC PO PRN (06:58)
[2020-11-29] MEDS ORDERED: AZITHROMYCIN 500 MG in SODIUM CHLORIDE 0.9% 250 ML IVPB STA (06:58)
[2020-11-29] MEDS ORDERED: SODIUM CHLORIDE 0.9% 1,000 ML IV SCH (07:00)
--- NOTE | 2020-11-29 09:15 | CT ---
EXAMINATION TYPE: CT chest angio for PE DATE OF EXAM: 11/29/2020 COMPARISON: Chest x-ray dated 11/29/2020 HISTORY: sob CT DLP: 367.1 mGycm Automated exposure control for dose reduction was used. CONTRAST: CT Chest for pulmonary embolism performed with with IV Contrast, patient injected with 100ML mL of Is ovue 370. Dimensional reconstructions performed on an alternate workstation. FINDINGS: There is artifact on the exam. LUNGS: The lungs are remarkable for emphysematous changes. There are bibasilar effusions with associa christopher atelectasis right greater than left. The tracheobronchial tree is patent. MEDIASTINUM: There is satisfactory enhancement of the pulmonary artery and most of its branches, ther e is poor filling of some segmental branches without evident filling defect however. There are no gr eater than 1 cm hilar or mediastinal lymph nodes. No pericardial effusion is seen. AORTA: No additional significant abnormality is seen. OTHER: No additional significant abnormality is seen. IMPRESSION: No evident filling defect to suggest pulmonary embolus. There is some poor filling of small segmental branches. Bilateral pleural effusions and associated atelectasis, emphysema, correlate for possible congestive heart failure
[2020-11-29] MEDS ORDERED: FUROSEMIDE 10 MG/ML 4 ML VIAL IV STA (09:45)
[2020-11-29] MEDS: FUROSEMIDE 10 MG/ML 4 ML VIAL IV SCH (10:34)
[2020-11-29 10:46] LABS: ABG HCO3 28 mmol/L (21-25); ABG Oxygen Saturation 95.3 % (94-97); ABG PCO2 39 mmHg (35-45); ABG PH 7.46 (7.35-7.45); ABG PO2 77 mmHg (83-108); ABG TCO2 29 mmol/L (19-24); Allen Test Performed? Yes
[2020-11-29] MEDS: ALPRAZolam 0.25 MG TAB PO SCH ×3 (11:38→22:19)
--- NOTE | 2020-11-29 12:37 | P.CNPUL ---
History of Present Illness Consult date: 11/29/20 Requesting physician: Antony Sharma Reason for consult: dyspnea Chief complaint: Shortness of breath History of present illness: 65-year-old white male patient with past medical history of multiple sclerosis on Ocrevus, and resultant weakness in bilateral lower extremities, and patient has been bedbound for the last 3 years. Patient was recently hospitalized from 11/20/2020 through 11/28/2020 for sepsis related to acute urinary tract infection secondary to nonobstructing right kidney stone measuring 3 mm, and bilateral lower extremity cellulitis. His urine culture from that admission was negative, however patient was found to have gram-positive bacteremia related to beta hemolytic strep group G, patient was treated with IV Rocephin, and discharged to [facility] on a short course of oral antibiotics in the form of Keflex 500 mg every 6 hours for 10 days. Patient was also supposed to follow up with Dr. Younger at the wound Center in the outpatient setting. Patient was at the group home for less than 24 hours when he was brought back per EMS for evaluation of worsening shortness of breath, and patient felt like he could not catch his breath, he was placed on supplemental oxygen and he is not normally oxygen dependent. Chest x-ray showed small amount of airspace opacities over bilateral lower lung zones, with the possibility atelectasis versus pneumonia. TG was unremarkable, and showed normal sinus rhythm. Patient labs showed elevated white blood cell count of 14.7, hemoglobin of 14.5, his electrolytes and renal profile were unremarkable, BNP was 198, troponin was less than 0.012, COVID-19 was tested and came back negative. Patient was started on antibiotics in the form of Zithromax and Rocephin, he was started on breathing treatments. Patient is afebrile, patient is currently on 4 L of oxygen the pulse ox of 98%, hemodynamically he is stable, he is slightly tachypneic, with a respiratory rate between 20-24 breaths per minute. CTA chest showed emphysematous changes within the lungs, no evidence of filling defect to suggest pulmonary embolus, and there was some poor filling of small segmental branches. There were bilateral pleural effusions and associated atelectasis, emphysema, and possible congestive heart failure. Patient was given a dose of IV Lasix 40 mg IV push 1. Patient was also started on high-dose IV Solu-Medrol 250 mg every 6 hours for possibility of acute exacerbation of multiple sclerosis. But gas was completed on 4 L of oxygen, showing pO2 of 77, pCO2 of 39, and pH of 7.46, and this was done on FiO2 of 36%. Patient was tried on BiPAP support while waiting for the results of the ABGs, however upon reviewing the results of the ABGs there is no evidence of hypercapnic respiratory failure, patient was taken off BiPAP support and placed back on nasal cannula. Patient denies any swallowing difficulty, denies any history of chronic aspiration. Lung sounds revealed diminished breath sounds at the bases with some mild rhonchi. His bilateral lower extremities reveal mild edema, no weeping, no open areas noted Review of Systems All systems: negative Constitutional: Denies chills, Denies fever Eyes: denies blurred vision, denies pain Ears, nose, mouth and throat: Denies headache, Denies sore throat Cardiovascular: Denies chest pain, Denies shortness of breath Respiratory: Reports dyspnea, Denies cough Gastrointestinal: Denies abdominal pain, Denies diarrhea, Denies nausea, Denies vomiting Musculoskeletal: Denies myalgias Integumentary: Denies pruritus, Denies rash Neurological: Denies numbness, Denies weakness Psychiatric: Denies anxiety, Denies depression Endocrine: Denies fatigue, Denies weight change Past Medical History Past Medical History: Musculoskeletal Disorder Additional Past Medical History / Comment(s): MS 2012 dx, urinary retention History of Any Multi-Drug Resistant Organisms: None Reported Past Surgical History: No Surgical Hx Reported Past Anesthesia/Blood Transfusion Reactions: No Reported Reaction Past Psychological History: No Psychological Hx Reported Smoking Status: Former smoker Past Alcohol Use History: Occasional Past Drug Use History: None Reported Medications and Allergies Home Medications Medication Instructions Recorded Confirmed Type Aspirin EC [Ecotrin Low Dose] 81 mg PO DAILY@0800 11/20/20 11/29/20 History Baclofen 10 mg PO 5XD 11/20/20 11/29/20 History Cholecalciferol (Vitamin D3) 125 mcg PO DAILY@1700 11/20/20 11/29/20 History [Vitamin D3 (5000 Iu)] Furosemide [Lasix] 60 mg PO DAILY@0800 11/20/20 11/29/20 History Lubiprostone [Amitiza] 24 mcg PO BID@0800,1700 11/20/20 11/29/20 History Oxybutynin Chloride [Ditropan XL] 5 mg PO DAILY@0800 11/20/20 11/29/20 History Potassium Chloride ER [K-Dur 10] 10 meq PO DAILY@0800 11/20/20 11/29/20 History Acetaminophen Tab [Tylenol] 650 mg PO Q6HR PRN tab 11/28/20 11/29/20 Rx Cephalexin [Keflex] 500 mg PO Q6HR 10 Days #40 cap 11/28/20 11/29/20 Rx Folic Acid 1 mg PO DAILY@1200 tab 11/28/20 11/29/20 Rx Thiamine [Vitamin B-1] 100 mg PO DAILY@1200 tab 11/28/20 11/29/20 Rx polyethylene glycoL 3350 [Miralax] 17 gm PO DAILY PRN powd.pack 11/28/20 11/29/20 Rx traMADol HCl [Ultram] 50 mg PO QID PRN #6 tab 11/28/20 11/29/20 Rx Docusate [Colace] 100 mg PO BID@0800,1700 11/29/20 11/29/20 History Famotidine [Pepcid] 20 mg PO BID@0800,2100 11/29/20 11/29/20 History INSULIN ASPART (NovoLOG) [NovoLOG See Protocol SQ ACHS 11/29/20 11/29/20 History (formulary)] Ipratropium-Albuterol Nebulize 3 ml INHALATION RT-TID 11/29/20 11/29/20 History [Duoneb 0.5 mg-3 mg/3 ml Soln] Ipratropium-Albuterol Nebulize 3 ml INHALATION RT-TID PRN 11/29/20 11/29/20 History [Duoneb 0.5 mg-3 mg/3 ml Soln] Magnesium Hydroxide [Milk of 2,400 mg PO DAILY PRN 11/29/20 11/29/20 History Magnesia] Magnesium Oxide [Mag-Ox] 400 mg PO DAILY@0800 11/29/20 11/29/20 History Na Phos,M-B/Na Phos,Di-Ba [Fleet 133 ml RECTAL DAILY PRN 11/29/20 11/29/20 History Adult] Nystatin 100,000 Unit/ml Susp 5 ml PO QID 11/29/20 11/29/20 History [Mycostatin Oral Susp] Pantoprazole [Protonix] 40 mg PO DAILY@0800 11/29/20 11/29/20 History Sennosides [Senokot] 8.6 mg PO BID@0800,1700 11/29/20 11/29/20 History bisacodyL [Dulcolax] 10 mg RECTAL DAILY PRN 11/29/20 11/29/20 History Allergies Allergy/AdvReac Type Severity Reaction Status Date / Time No Known Allergies Allergy Verified 11/29/20 08:51 Physical Exam Vitals: Vital Signs Temp Pulse Resp BP Pulse Ox 11/29/20 11:30 92 18 144/96 11/29/20 11:00 88 19 142/88 11/29/20 10:30 89 22 140/88 98 11/29/20 09:34 98 11/29/20 09:33 77 20 11/29/20 09:31 97 11/29/20 09:24 83 24 11/29/20 07:28 98.0 F 87 20 128/80 98 11/29/20 06:24 70 11/29/20 06:15 70 11/29/20 05:33 98.3 F 81 16 125/80 97 Intake and Output 11/28/20 11/29/20 11/29/20 22:59 06:59 14:59 Other: Weight 83.915 kg GENERAL EXAM: Alert, very pleasant, 65-year-old white male on 4 L of oxygen and the pulse ox of 90%, slightly tachypneic, but appears to be in no acute distress comfortable in no apparent distress. HEAD: Normocephalic/atraumatic. EYES: Normal reaction of pupils, equal size. Conjunctiva pink, sclera white. NOSE: Clear with pink turbinates. THROAT: No erythema or exudates. NECK: No masses, no JVD, no thyroid enlargement, no adenopathy. CHEST: No chest wall deformity. Symmetrical expansion. LUNGS: Equal air entry with diminished breath sounds at the bases CVS: Regular rate and rhythm, normal S1 and S2, no gallops, no murmurs, no rubs ABDOMEN: Soft, nontender. No hepatosplenomegaly, normal bowel sounds, no guarding or rigidity. EXTREMITIES: No clubbing, mild lower extremity edema, no cyanosis, 2+ pulses and upper and lower extremities. MUSCULOSKELETAL: Muscle strength and tone normal. SPINE: No scoliosis or deformity SKIN: No rashes CENTRAL NERVOUS SYSTEM: Alert and oriented -3. No focal deficits, tone is normal in all 4 extremities. PSYCHIATRIC: Alert and oriented -3. Appropriate affect. Intact judgment and insight. Results - Laboratory Findings CBC and BMP: 11/29/20 05:49 11/29/20 05:49 ABG ABG pH 7.46 (7.35-7.45) H 11/29/20 10:42 ABG pCO2 39 mmHg (35-45) 11/29/20 10:42 ABG pO2 77 mmHg (83-108) L 11/29/20 10:42 ABG O2 Saturation 95.3 % (94-97) 11/29/20 10:42 PT/INR, D-dimer PT 10.6 sec (9.0-12.0) 11/29/20 05:49 INR 1.0 (<1.2) 11/29/20 05:49 Abnormal lab findings: Abnormal Labs 11/29/20 11/29/20 11/29/20 05:49 05:49 10:42 WBC 14.7 H Neutrophils # 12.6 H Lymphocytes # 0.9 L ABG pH 7.46 H ABG pO2 77 L ABG HCO3 28 H ABG Total CO2 29 H Sodium 134 L Carbon Dioxide 31 H BUN 26 H Magnesium 2.4 H Total Protein 6.0 L Albumin 3.2 L - Diagnostic Findings Chest x-ray: report reviewed, image reviewed CT scan - chest: report reviewed, image reviewed Assessment and Plan Plan: Assessment: #1. Acute hypoxic respiratory failure possibly related to mild fluid overload, bibasilar atelectasis, and possibility of pneumonia is not entirely excluded. COVID-19 PCR test was negative. CTA chest showed no evidence of pulmonary embolism, although there is some poor filling of small segmental branches. Bilateral pleural effusions and associated atelectasis emphysema, and possible CHF were noted on CTA chest #2. Recent hospitalization from 11/20/2020 through 11/28/2020 for sepsis related to bilateral lower extremity cellulitis, acute urinary tract infection, and beta hemolytic strep group G bacteremia, patient was treated with Rocephin, and discharged to [facility] and rehab on oral course of Keflex 500 mg every 6 hours for 10 days #3. History of multiple sclerosis, on Ocrevus #4. Chronic weakness in bilateral lower extremities related to history of multiple sclerosis #5. General medical debility, and patient is bedbound #6. Former history of smoking Plan: Blood gas has been obtained and reviewed No evidence of hypercarbia, No need for BiPAP Continue supplemental oxygen per nasal cannula, titrate to maintain O2 saturations above 90% Continue IV steroids, we'll switch antibiotic coverage to Zosyn Obtain a pro-calcitonin level Send a sputum culture, Send a urinalysis and urine culture, send a blood culture Patient received 1 dose of Lasix, we'll continue with daily dose of IV Lasix Follow-up chest x-ray in the morning Follow-up basic labs, intake and output, electrolytes and renal profile Neurology to evaluate for MS exacerbation I performed a history & physical examination of the patient and discussed their management with my nurse practitioner, Josie Bradshaw. I reviewed the nurse practitioner's note and agree with the documented findings and plan of care. Lung sounds are positive for diminished breath sounds. The findings and the impression was discussed with the patient. I attest to the documentation by the nurse practitioner. Time with Patient: Greater than 30
[2020-11-29] MEDS ORDERED: NA PHOS,M-B/NA PHOS,DI-BA 133 ML ENEMA RECTAL PRN (13:19)
[2020-11-29] MEDS ORDERED: polyethylene glycoL 3350 17 GM POWD.PACK PO PRN (13:19)
[2020-11-29] MEDS ORDERED: traMADol 50 MG TAB PO PRN (13:19)
[2020-11-29] MEDS ORDERED: ACETAMINOPHEN TAB 325 MG TAB PO PRN (13:19)
[2020-11-29] MEDS ORDERED: MAGNESIUM HYDROXIDE 2,400 MG/10 ML CUP PO PRN (13:19)
[2020-11-29] MEDS ORDERED: bisacodyL 10 MG SUPP RECTAL PRN (13:19)
[2020-11-29] MEDS ORDERED: ALPRAZolam 0.25 MG TAB PO PRN (13:21)
--- NOTE | 2020-11-29 15:17 | HP ---
HISTORY AND PHYSICAL DATE OF SERVICE: 11/29/2020 CHIEF COMPLAINT: Shortness of breath. HISTORY OF PRESENT ILLNESS: This 65-year-old gentleman with a past medical history of multiple medical problems including acute bilateral leg cellulitis, beta-hemolytic strep, sepsis, also had acute multiple sclerosis. Patient was admitted recently and the patient is on high- dose IV steroids. Patient improved significantly. Patient was sent to rehab. In the rehab, patient became progressively short of breath and the patient was sent to [facility] and admitted for evaluation and treatment. Currently, the patient was seen by Dr. Schuster. The patient had features of acute hypoxic respiratory failure. The possibility of atelectasis, COPD, pneumonia is being considered at this time. CHF is also suggested in the CT of the chest. There is no evidence of pulmonary embolism. There is no history of fever, rigors or chills. No history of headache, loss of consciousness or seizures. The patient is extremely anxious. The patient is followed by Dr. Shawn Galarza in the outpatient setting. PAST MEDICAL HISTORY: History of MS, history of recent sepsis, multiple other medical issues as mentioned earlier. MEDICATIONS: Home medications are: Ultram. MiraLAX. Dulcolax. Vitamin B1. Senokot, K- Dur, Protonix and Ditropan XL. Mycostatin. Fleets, milk of magnesia. Amitiza, DuoNeb. NovoLog. Lasix. Colace. Vitamin D3. Keflex. Baclofen. Ecotrin. Tylenol. ALLERGIES: None. FAMILY HISTORY: No history of heart disease or strokes in the family. SOCIAL HISTORY: Three beers a week. Previous history of smoking. No history of current smoking. REVIEW OF SYSTEMS: ENT: Diminished vision. Diminished hearing. Cardio system: As mentioned earlier. RESPIRATORY: As mentioned earlier. GI: As mentioned earlier. : No dysuria. Nervous System: As mentioned earlier. ALLERGY/IMMUNOLOGY: No asthma, hayfever. MUSCULOSKELETAL as mentioned earlier. HEMATOLOGY/ONCOLOGY: No history of anemia. ENDOCRINE: No history of diabetes or hypothyroidism. CONSTITUTIONAL: As mentioned earlier. DERMATOLOGY: Negative. RHEUMATOLOGY: Negative. PSYCHIATRY as mentioned. PHYSICAL EXAMINATION: Alert and oriented times two. Pulse 92, blood pressure 114/86, respiration 18, temperature is normal, pulse ox was 97 percent on 2 L. HEENT: Conjunctivae normal. NECK: No JVD. CARDIOVASCULAR: S1, S2 muffled. No S3, no S4. RESPIRATORY: Breath sounds diminished in the bases. Bilateral scattered rhonchi and crackles. Breathing efforts are markedly increased. ABDOMEN: Soft, nontender. LEGS: Minimal edema. NERVOUS SYSTEM: Higher functions as mentioned earlier. Moves all 4 limbs. Diffuse weakness and wasting also present. LYMPHATICS: No lymph nodes palpable in the neck, axillae or groin. SKIN: No ulcer, no rash or bleeding. Minimal cellulitis improving. JOINTS: No active deforming arthropathy. LAB STUDIES: WBC 14.6, hemoglobin 14.5, sodium 135. ASSESSMENT: 1. Shortness of breath possibly multifactorial, chronic obstructive pulmonary disease acute exacerbation with possible atelectasis. 2. Rule out pneumonia. 3. Rule out congestive heart failure. 4. Increased WBC. 5. Hyponatremia. 6. Anxiety state. 7. Acute respiratory alkalosis. 8. History of recent multiple sclerosis, acute exacerbation. 9. History of recent bilateral leg cellulitis as well as beta-hemolytic Streptococcus sepsis. 10.Gait dysfunction. 11.Chronic left leg deep vein thrombosis history. 12.History of recent urinary tract infection. 13.History of _abnormality. 14.Remote history of nicotine dependence. 15.FULL CODE. RECOMMENDATIONS AND DISCUSSION: In this 65-year-old gentleman who presented with multiple complex medical issues, we will monitor the patient closely, continue the current medications, and symptomatic treatment. Otherwise, at this time, I recommend intensive bronchodilators. We will also give Lasix on a daily basis. A 2D echo with Doppler will be ordered. The BNP was only 198. The possibility of diastolic dysfunction is still a possibility. I would also recommend repeat cultures. Continue to monitor. IV steroids. Prognosis guarded because of multiple complex medical issues. Further recommendations to follow. We will give IV steroids for the COPD exacerbation. A copy of dictation being forwarded to Dr. Shawn Galarza, who is the primary physician. See orders for details. We will closely follow the patient along with Dr. Schuster. LAKSHMI / JOHN: [id number] / [id number]
[2020-11-29] MEDS: methylPREDNISolone SOD SUCCI 125 MG/2 ML VIAL IV SCH ×2 (15:21→18:16)
[2020-11-29] MEDS: HEPARIN SODIUM,PORCINE/PF 5,000 UNIT/0.5 ML SYRINGE SQ SCH ×2 (15:22→22:19)
[2020-11-29] MEDS: BACLOFEN 10 MG TAB PO SCH ×2 (15:22→19:48)
[2020-11-29 15:31] LABS: Appearance,Urine Clear (Clear); Bilirubin,Urine Negative (Negative); Blood,Urine Negative (Negative); Color,Urine Colorless; Glucose,Urine (UA) Negative (Negative); Ketones,Urine 1+ (Negative); Leukocyte Esterase,Urine Negative (Negative); Nitrite,Urine Negative (Negative); PH, Urine 6.5 (5.0-8.0); Protein,Urine Negative (Negative); Specific Gravity,Urine 1.012 (1.001-1.035); Urobilinogen,Urine <2.0 mg/dL (<2.0)
[2020-11-29] MEDS: IPRATROPIUM-ALBUTEROL 3 ML NEB INHALATION SCH ×2 (15:44→19:59)
--- NOTE | 2020-11-29 16:05 | P.CNNES ---
History of Present Illness Consult date: 11/29/20 Requesting physician: Jerardo Hernández Reason for Consult: Multiple sclerosis History of Present Illness: Patient is a 65-year-old male came to the hospital by ambulance today at 5:32 AM because of difficulty in breathing. Patient's vitals at the scene was blood pressure 143/88, pulse rate 73, respiration 18, saturation 97% on 3 L oxygen. Patient states that he could not breathe. Patient has paraplegia related to MS. He does have numbness and tingling in both hands and arms. His legs don't work. His left foot rea when tested. He states that he gets swelling of the legs every day and it gets better at night. Now the swelling stays whole day long. Patient was recently admitted to Hospital on 11/20/2020, seen by Dr. Joseluis Oquendo for MS exacerbation. 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 Patient underwent MRI of the brain with and without contrast on 11/21/2020 which revealed correlate for multiple sclerosis. No enhancing plaques are evident. MRI of the cervical spine with and without contrast revealed degenerative disc disease and multilevel foraminal encroachment. Extensive artifact though present, no definite abnormal cord signal. I agree with radiology report, no evidence of new enhancing lesions. Patient was given Solu-Medrol 500 mg twice a day for 5 days starting from 11/21/2020, completing yesterday on 11/28/2020. He was discharged, but then came back this morning with difficulty breathing. Patient was not discharged on any tapering down dose of prednisone. Patient states he has history of MS since 2011. He follows up with Dr. Hubbard in [facility]. Patient denies diabetes. He smoked 2 packs per day for 30 years, quit 5 years ago. He drinks sporadically. Couple beers a week. He lives at his home with his mainly takes care of him. He does have a handicap friend, and a ramp an electric wheelchair. He still works using a standard wheelchair. 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 Patient's CTA of the chest showed no evident filling defect to suggest pulmonary embolus. There is some poor filling of small segmental branches. Bilateral pleural effusions and associated atelectasis, emphysema, correlate for possible congestive heart failure. Chest x-ray showed small amount of by basilar atelectasis and/or pneumonia. EKG shows normal sinus rhythm. Review of Systems Patient denies any fever or chills. Denies any abdominal pain nausea vomiting diarrhea. Patient complains of shortness of breath, difficulty breathing. No chest pain. No double vision, loss of vision, hoarseness, sore throat. Patient has peripheral edema. Neurological as above. Denies any hearing loss. Complains of fatigue. No rash. Past Medical History Past Medical History: Deep Vein Thrombosis (DVT), Musculoskeletal Disorder Additional Past Medical History / Comment(s): Pt recently admitted to [facility] on 11/20/20 with acute bilateral lower leg cellulitis, betahemolytic strep group G sepsis, gait dysfunction d/t multiple factors, generalized weakness, UTI, hypokalemia, COPD/R nephrolithiasis documented but pt denies, random elevated blood sugar thought d/t steroids. Other hx: Chronic L leg DVT/pt denies, chronic anemia, constipation, occasional bilateral lower extremity edema. History of Any Multi-Drug Resistant Organisms: None Reported Past Surgical History: No Surgical Hx Reported Additional Past Surgical History / Comment(s): Pt states he has never had surgery. Past Anesthesia/Blood Transfusion Reactions: No Reported Reaction Additional Past Anesthesia/Blood Transfusion Reaction / Comment(s): Pt has clausterphobia. Smoking Status: Former smoker - Past Family History Mother Family Medical History: No Reported History Additional Family Medical History / Comment(s): Mother is healthy and 86yrs old. Father Family Medical History: No Reported History Additional Family Medical History / Comment(s): Father is 90 yrs old. Medications and Allergies Home Medications Medication Instructions Recorded Confirmed Type Aspirin EC [Ecotrin Low Dose] 81 mg PO DAILY@0800 11/20/20 11/29/20 History Baclofen 10 mg PO 5XD 11/20/20 11/29/20 History Cholecalciferol (Vitamin D3) 125 mcg PO DAILY@1700 11/20/20 11/29/20 History [Vitamin D3 (5000 Iu)] Furosemide [Lasix] 60 mg PO DAILY@0800 11/20/20 11/29/20 History Lubiprostone [Amitiza] 24 mcg PO BID@0800,1700 11/20/20 11/29/20 History Oxybutynin Chloride [Ditropan XL] 5 mg PO DAILY@0800 11/20/20 11/29/20 History Potassium Chloride ER [K-Dur 10] 10 meq PO DAILY@0800 11/20/20 11/29/20 History Acetaminophen Tab [Tylenol] 650 mg PO Q6HR PRN tab 11/28/20 11/29/20 Rx Cephalexin [Keflex] 500 mg PO Q6HR 10 Days #40 cap 11/28/20 11/29/20 Rx Folic Acid 1 mg PO DAILY@1200 tab 11/28/20 11/29/20 Rx Thiamine [Vitamin B-1] 100 mg PO DAILY@1200 tab 11/28/20 11/29/20 Rx polyethylene glycoL 3350 [Miralax] 17 gm PO DAILY PRN powd.pack 11/28/20 11/29/20 Rx traMADol HCl [Ultram] 50 mg PO QID PRN #6 tab 11/28/20 11/29/20 Rx Docusate [Colace] 100 mg PO BID@0800,1700 11/29/20 11/29/20 History Famotidine [Pepcid] 20 mg PO BID@0800,2100 11/29/20 11/29/20 History INSULIN ASPART (NovoLOG) [NovoLOG See Protocol SQ ACHS 11/29/20 11/29/20 History (formulary)] Ipratropium-Albuterol Nebulize 3 ml INHALATION RT-TID 11/29/20 11/29/20 History [Duoneb 0.5 mg-3 mg/3 ml Soln] Ipratropium-Albuterol Nebulize 3 ml INHALATION RT-TID PRN 11/29/20 11/29/20 History [Duoneb 0.5 mg-3 mg/3 ml Soln] Magnesium Hydroxide [Milk of 2,400 mg PO DAILY PRN 11/29/20 11/29/20 History Magnesia] Magnesium Oxide [Mag-Ox] 400 mg PO DAILY@0800 11/29/20 11/29/20 History Na Phos,M-B/Na Phos,Di-Ba [Fleet 133 ml RECTAL DAILY PRN 11/29/20 11/29/20 History Adult] Nystatin 100,000 Unit/ml Susp 5 ml PO QID 11/29/20 11/29/20 History [Mycostatin Oral Susp] Pantoprazole [Protonix] 40 mg PO DAILY@0800 11/29/20 11/29/20 History Sennosides [Senokot] 8.6 mg PO BID@0800,1700 11/29/20 11/29/20 History bisacodyL [Dulcolax] 10 mg RECTAL DAILY PRN 11/29/20 11/29/20 History Allergies Allergy/AdvReac Type Severity Reaction Status Date / Time No Known Allergies Allergy Verified 11/29/20 08:51 Physical Examination - Vital Signs Vital Signs: Vital Signs Temp Pulse Resp BP Pulse Ox 11/29/20 11:30 92 18 144/96 11/29/20 11:00 88 19 142/88 11/29/20 10:30 89 22 140/88 98 11/29/20 09:34 98 11/29/20 09:33 77 20 11/29/20 09:31 97 11/29/20 09:24 83 24 11/29/20 07:28 98.0 F 87 20 128/80 98 11/29/20 06:24 70 11/29/20 06:15 70 11/29/20 05:33 98.3 F 81 16 125/80 97 Intake and Output 11/29/20 11/29/20 11/29/20 06:59 14:59 22:59 Other: Weight 83.915 kg 83.915 kg Patient is an elderly male, who appears to be having some mild difficulty in breathing. Patient is alert awake oriented to time place and person. Patient knows it is 11/28/2020. Speech and language functions are normal. Attention, concentration and fund of knowledge is adequate. On cranial examination, pupils are round and reacting to light, visual new are full on confrontation, extraocular muscles are intact with no nystagmus. Face is symmetric, tongue protrudes to the midline. Palatal elevation and sensation normal, hearing and shoulder shrug normal, facial sensation normal. Shoulder shrug normal. On muscle strength testing, right/left, deltoid 4/4+, biceps 4/4+, triceps 5-/5-, clinical trial educator 4-/4, hip flexion 1-2/1-2, knee extension 4/5, toe extension 0/4+, ankle dorsiflexion 0/0. Deep tendon reflexes are 1 at the biceps, trace brachioradialis, 2 at the knees, 2 at right ankle 1 on the left. Patient has bilateral Babinski. Sensory to touch is decreased distally in the legs. Cerebellar function showed no ataxia for [id number] testing on the left, can not perform on the right. Tone is increased particularly in the legs and bulk of muscles normal. Gait not checked. On general examination, there is no carotid bruit or murmur, S1-S2 audible. Abdomen is soft nontender. Chest is clear. Mild peripheral edema present. Results - Laboratory Findings CBC and BMP: 11/29/20 05:49 11/29/20 05:49 Abnormal Lab Findings: Abnormal Labs 11/29/20 11/29/20 11/29/20 05:49 05:49 10:42 WBC 14.7 H Neutrophils # 12.6 H Lymphocytes # 0.9 L ABG pH 7.46 H ABG pO2 77 L ABG HCO3 28 H ABG Total CO2 29 H Sodium 134 L Carbon Dioxide 31 H BUN 26 H Magnesium 2.4 H Total Protein 6.0 L Albumin 3.2 L Urine Ketones 11/29/20 15:05 WBC Neutrophils # Lymphocytes # ABG pH ABG pO2 ABG HCO3 ABG Total CO2 Sodium Carbon Dioxide BUN Magnesium Total Protein Albumin Urine Ketones 1+ H Assessment and Plan Assessment: * Long-standing history of multiple sclerosis, status post recent treatment for possible MS exacerbation. Patient was just discharged yesterday, now returned back to the hospital today for difficulty in breathing. CTA showed possibility of CHF, versus pneumonia/atelectasis. Doubt primary neurological cause of difficulty breathing. * History of multiple sclerosis on Ocrevus * Chronic paraplegia related to MS. * X tobacco use Plan: * Patient has been started on Zosyn for possible pneumonia. * No need for steroids from neurological standpoint. * We will check B12, folate, MMA, B6, vitamin D, TSH, RPR and A1c. * Neurology will follow sporadically.
[2020-11-29] MEDS: NON FORMULARY DRUG (Lubiprostone [Amitiza] 24 MCG Capsule) PO SCH (17:52)
[2020-11-29 18:07] LABS: Glucose,Whole Blood 166 mg/dL (75-99)
[2020-11-29] MEDS: PIPERACILLIN-TAZOBACTAM 3.375 GM in SODIUM CHLORIDE 0.9% 100 ML IVPB SCH (18:16)
[2020-11-29] MEDS: CHOLECALCIFEROL 25 MCG (1000 IU) TABLET PO SCH (18:20)
[2020-11-29] MEDS: INSULIN ASPART (NovoLOG) 100 UNIT/ML VIAL SQ SCH ×2 (18:33→22:21)
[2020-11-29] MEDS: DOCUSATE 100 MG CAP PO SCH (19:48)
[2020-11-29] MEDS: SENNOSIDES 8.6 MG TAB PO SCH (19:48)
[2020-11-29] MEDS: FAMOTIDINE 20 MG TAB PO SCH (19:48)
[2020-11-29] MEDS: NYSTATIN 100,000 UNIT/ML SUSP 500,000 UNIT/5 ML CUP PO SCH (21:41)
[2020-11-29 22:01] LABS: Glucose,Whole Blood 157 mg/dL (75-99)
[2020-11-30] MEDS: NYSTATIN 100,000 UNIT/ML SUSP 500,000 UNIT/5 ML CUP PO SCH ×5 (00:53→21:41)
[2020-11-30] MEDS: methylPREDNISolone SOD SUCCI 125 MG/2 ML VIAL IV SCH ×5 (01:06→23:10)
[2020-11-30] MEDS: BACLOFEN 10 MG TAB PO SCH ×6 (01:08→23:10)
[2020-11-30] MEDS: PIPERACILLIN-TAZOBACTAM 3.375 GM in SODIUM CHLORIDE 0.9% 100 ML IVPB SCH ×4 (01:11→23:11)
[2020-11-30 01:14] LABS: Hemoglobin A1C 5.8 % (4.0-6.0)
[2020-11-30 06:45] LABS: African American GFR (CKD) >90 (>60 ml/min/1.73 sqM); Anion Gap 5 mmol/L; Blood Urea Nitrogen 30 mg/dL (9-20); Calcium 8.3 mg/dL (8.4-10.2); Carbon Dioxide 32 mmol/L (22-30); Chloride 99 mmol/L (98-107); Glucose 186 mg/dL (74-99); Non-African American GFR(CKD) 89 (>60 ml/min/1.73 sqM); Potassium 4.6 mmol/L (3.5-5.1); Sodium 136 mmol/L (137-145)
[2020-11-30] MEDS: IPRATROPIUM-ALBUTEROL 3 ML NEB INHALATION SCH ×4 (07:51→20:25)
[2020-11-30] MEDS: DOCUSATE 100 MG CAP PO SCH ×2 (07:59→15:51)
[2020-11-30] MEDS: ASPIRIN 81 MG PO SCH (07:59)
[2020-11-30] MEDS: POTASSIUM CHLORIDE ER 10 MEQ TAB.ER.PRT PO SCH (07:59)
[2020-11-30] MEDS: SENNOSIDES 8.6 MG TAB PO SCH ×2 (07:59→15:51)
[2020-11-30] MEDS: THIAMINE 100 MG TAB PO SCH (07:59)
[2020-11-30] MEDS: FAMOTIDINE 20 MG TAB PO SCH ×2 (08:00→21:38)
[2020-11-30] MEDS: PANTOPRAZOLE 40 MG TABLET PO SCH (08:00)
[2020-11-30] MEDS: FOLIC ACID 1 MG TAB PO SCH (08:00)
[2020-11-30] MEDS: FUROSEMIDE 10 MG/ML 4 ML VIAL IV SCH (08:00)
[2020-11-30] MEDS: OXYBUTYNIN XL 5 MG TAB.ER.24 PO SCH (08:00)
[2020-11-30 08:09] LABS: Glucose,Whole Blood 180 mg/dL (75-99)
--- NOTE | 2020-11-30 08:09 | XR ---
EXAMINATION TYPE: XR chest 1V portable DATE OF EXAM: 11/30/2020 COMPARISON: 11/29/2020 HISTORY: Follow-up pneumonia TECHNIQUE: Single frontal view of the chest is obtained. FINDINGS: Hyperinflation noted. There is bilateral subsegmental consolidation. Nodular density overl jose the left lower lung field laterally noted. Coarsened interstitium. No pneumothorax. Arthropathy of the shoulders. Heart size normal. IMPRESSION: 1. COPD with basilar infiltrate bilaterally similar in appearance. 2. Vague nodular density along the lateral margin of the left lower lung for which short-term follow- up recommended.
[2020-11-30] MEDS: INSULIN ASPART (NovoLOG) 100 UNIT/ML VIAL SQ SCH ×4 (08:15→21:39)
[2020-11-30] MEDS: HEPARIN SODIUM,PORCINE/PF 5,000 UNIT/0.5 ML SYRINGE SQ SCH ×2 (08:15→21:39)
[2020-11-30] MEDS: MAGNESIUM OXIDE 400 MG TAB PO SCH (08:15)
[2020-11-30] MEDS: NON FORMULARY DRUG (Lubiprostone [Amitiza] 24 MCG Capsule) PO SCH ×2 (08:17→16:45)
[2020-11-30] MEDS: ALPRAZolam 0.25 MG TAB PO SCH ×3 (08:30→21:41)
[2020-11-30] MEDS ORDERED: AZITHROMYCIN 500 MG TAB PO SCH (09:00)
[2020-11-30 09:28] LABS: Basophils # (A) 0.02 X 10*3/uL (0.00-0.10); Basophils % (A) 0.1 %; Eosinophils # (A) 0 X 10*3/uL (0.04-0.35); Eosinophils % (A) 0 %; HGB 12.4 g/dL (13.0-17.0); Lymphocytes # (A) 0.57 X 10*3/uL (0.90-5.00); Lymphocytes % (A) 3.6 %; MCH 29.7 pg (27.0-32.0); MCV 95.7 fL (80.0-97.0); Mean Platelet Volume 10.1 fL (9.5-12.2); Monocytes # (A) 0.45 X 10*3/uL (0.20-1.00); Monocytes % (A) 2.9 %; Neutrophils # (A) 14.29 X 10*3/uL (1.80-7.70); Neutrophils % (A) 91.2 %; Platelet Count 391 X 10*3/uL (140-440); RBC 4.18 X 10*6/uL (4.40-5.60); RDW 13.9 % (11.5-14.5); WBC 15.68 X 10*3/uL (4.50-10.00)
[2020-11-30 11:20] LABS: Glucose,Whole Blood 224 mg/dL (75-99)
--- NOTE | 2020-11-30 11:28 | P.PN ---
Subjective Progress Note Date: 11/30/20 Principal diagnosis: Acute hypoxic respiratory failure secondary to mild fluid volume overload, bibasilar atelectasis 65-year-old white male patient with past medical history of multiple sclerosis on Ocrevus, and resultant weakness in bilateral lower extremities, and patient has been bedbound for the last 3 years. Patient was recently hospitalized from 11/20/2020 through 11/28/2020 for sepsis related to acute urinary tract infection secondary to nonobstructing right kidney stone measuring 3 mm, and bilateral lower extremity cellulitis. His urine culture from that admission was negative, however patient was found to have gram-positive bacteremia related to beta hemolytic strep group G, patient was treated with IV Rocephin, and discharged to [facility] on a short course of oral antibiotics in the form of Keflex 500 mg every 6 hours for 10 days. Patient was also supposed to follow up with Dr. Younger at the wound Center in the outpatient setting. Patient was at [facility] detention for less than 24 hours when he was brought back per EMS for evaluation of worsening shortness of breath, and patient felt like he could not catch his breath, he was placed on supplemental oxygen and he is not normally oxygen dependent. Chest x-ray showed small amount of airspace opacities over bilateral lower lung zones, with the possibility atelectasis versus pneumonia. TG was unremarkable, and showed normal sinus rhythm. Patient labs showed elevated white blood cell count of 14.7, hemoglobin of 14.5, his electrolytes and renal profile were unremarkable, BNP was 198, troponin was less than 0.012, COVID-19 was tested and came back negative. Patient was started on antibiotics in the form of Zithromax and Rocephin, he was started on breathing treatments. Patient is afebrile, patient is currently on 4 L of oxygen the pulse ox of 98%, hemodynamically he is stable, he is slightly tachypneic, with a respiratory rate between 20-24 breaths per minute. CTA chest showed emphysematous changes within the lungs, no evidence of filling defect to suggest pulmonary embolus, and there was some poor filling of small segmental branches. There were bilateral pleural effusions and associated atelectasis, emphysema, and possible congestive heart failure. Patient was given a dose of IV Lasix 40 mg IV push 1. Patient was also started on high-dose IV Solu-Medrol 250 mg every 6 hours for possibility of acute exacerbation of multiple sclerosis. But gas was completed on 4 L of oxygen, showing pO2 of 77, pCO2 of 39, and pH of 7.46, and this was done on FiO2 of 36%. Patient was tried on BiPAP support while waiting for the results of the ABGs, however upon reviewing the results of the ABGs there is no evidence of hypercapnic respiratory failure, patient was taken off BiPAP support and placed back on nasal cannula. Patient denies any swallowing difficulty, denies any his tory of chronic aspiration. Lung sounds revealed diminished breath sounds at the bases with some mild rhonchi. His bilateral lower extremities reveal mild edema, no weeping, no open areas noted The patient is seen today 11/30/2020 still remaining in the emergency room. He is currently sitting up on the stretcher. Awake and alert in no acute distress. Follow-up chest x-ray reveals COPD with basilar infiltrates bilaterally. Moderate nodular density along the lateral margin of left lower lung. He is currently maintaining O2 saturations up to 100% on 4 L/m per nasal cannula. He is afebrile. Hemodynamically stable. Blood cultures revealing no growth to date. White count 15.6. Hemoglobin 12.4. Platelets 391. Neutrophils 14.2. Sodium 136. Potassium 4.6. Bicarb 32. Creatinine 0.91. Glucose 186. Calcium 8.3. Pro-calcitonin 0.15. He remains on DuoNeb inhalations, IV Solu-Medrol. Antibiotics in the form of Zosyn. He remains on IV diuretics. Heparin for DVT prophylaxis. Objective - Vital Signs Vital signs: Vital Signs Temp 97.9 F 11/30/20 07:56 Pulse 84 11/30/20 08:05 Resp 16 11/30/20 07:56 BP 128/75 11/30/20 07:56 Pulse Ox 100 11/30/20 07:56 Intake & Output 11/29/20 11/30/20 11/30/20 18:59 06:59 18:59 Weight 83.915 kg - Exam GENERAL EXAM: Alert, very pleasant, 65-year-old male patient on 4 L of oxygen and the pulse ox of 100%, appears to be in no acute distress. HEAD: Normocephalic/atraumatic. EYES: Normal reaction of pupils, equal size. Conjunctiva pink, sclera white. NOSE: Clear with pink turbinates. THROAT: No erythema or exudates. NECK: No masses, no JVD, no thyroid enlargement, no adenopathy. CHEST: No chest wall deformity. Symmetrical expansion. LUNGS: Equal air entry with diminished breath sounds at the bases CVS: Regular rate and rhythm, normal S1 and S2, no gallops, no murmurs, no rubs ABDOMEN: Soft, nontender. No hepatosplenomegaly, normal bowel sounds, no guarding or rigidity. EXTREMITIES: No clubbing, mild lower extremity edema, no cyanosis, 2+ pulses and upper and lower extremities. MUSCULOSKELETAL: Muscle strength and tone weak secondary to multiple sclerosis. SPINE: No scoliosis or deformity SKIN: No rashes CENTRAL NERVOUS SYSTEM: No focal deficits, tone is normal in all 4 extremities. PSYCHIATRIC: Alert and oriented -3. Appropriate affect. Intact judgment and insight. - Labs CBC & Chem 7: 11/30/20 05:56 11/30/20 05:56 Labs: Abnormal Lab Results - Last 24 Hours (Table) 11/29/20 11/29/20 11/29/20 Range/Units 05:49 15:05 18:06 WBC (4.50-10.00) X 10*3/uL RBC (4.40-5.60) X 10*6/uL Hgb (13.0-17.0) g/dL MCHC (32.0-37.0) g/dL Immature Gran # (0.00-0.04) X 10*3/uL Neutrophils # (1.80-7.70) X 10*3/uL Lymphocytes # (0.90-5.00) X 10*3/uL Eosinophils # (0.04-0.35) X 10*3/uL Sodium (137-145) mmol/L Carbon Dioxide (22-30) mmol/L BUN (9-20) mg/dL Glucose (74-99) mg/dL POC Glucose (mg/dL) 166 H (75-99) mg/dL Calcium (8.4-10.2) mg/dL Procalcitonin 0.15 H (0.02-0.09) ng/mL Urine Ketones 1+ H (Negative) 11/29/20 11/30/20 11/30/20 Range/Units 21:58 05:56 05:56 WBC 15.68 H (4.50-10.00) X 10*3/uL RBC 4.18 L (4.40-5.60) X 10*6/uL Hgb 12.4 L (13.0-17.0) g/dL MCHC 31.0 L (32.0-37.0) g/dL Immature Gran # 0.35 H (0.00-0.04) X 10*3/uL Neutrophils # 14.29 H (1.80-7.70) X 10*3/uL Lymphocytes # 0.57 L (0.90-5.00) X 10*3/uL Eosinophils # 0 L (0.04-0.35) X 10*3/uL Sodium 136 L (137-145) mmol/L Carbon Dioxide 32 H (22-30) mmol/L BUN 30 H (9-20) mg/dL Glucose 186 H (74-99) mg/dL POC Glucose (mg/dL) 157 H (75-99) mg/dL Calcium 8.3 L (8.4-10.2) mg/dL Procalcitonin (0.02-0.09) ng/mL Urine Ketones (Negative) 11/30/20 Range/Units 08:07 WBC (4.50-10.00) X 10*3/uL RBC (4.40-5.60) X 10*6/uL Hgb (13.0-17.0) g/dL MCHC (32.0-37.0) g/dL Immature Gran # (0.00-0.04) X 10*3/uL Neutrophils # (1.80-7.70) X 10*3/uL Lymphocytes # (0.90-5.00) X 10*3/uL Eosinophils # (0.04-0.35) X 10*3/uL Sodium (137-145) mmol/L Carbon Dioxide (22-30) mmol/L BUN (9-20) mg/dL Glucose (74-99) mg/dL POC Glucose (mg/dL) 180 H (75-99) mg/dL Calcium (8.4-10.2) mg/dL Procalcitonin (0.02-0.09) ng/mL Urine Ketones (Negative) Microbiology - Last 24 Hours (Table) 11/29/20 07:30 Blood Culture - Preliminary Blood No Growth after 24 hours 11/29/20 07:15 Blood Culture - Preliminary Blood No Growth after 24 hours Assessment and Plan Assessment: 1 Acute hypoxic respiratory failure possibly related to mild fluid overload, bibasilar atelectasis, and possibility of pneumonia is less likely ProCalcitonin 0.15. COVID-19 PCR test was negative. CTA chest showed no evidence of pulmonary embolism, although there is some poor filling of small segmental branches. Bilateral pleural effusions and associated atelectasis emphysema, and possible CHF were noted on CTA chest 2 Recent hospitalization from 11/20/2020 through 11/28/2020 for sepsis related to bilateral lower extremity cellulitis, acute urinary tract infection, and beta hemolytic strep group G bacteremia, patient was treated with Rocephin, and discharged to [facility] and rehab on oral course of Keflex 500 mg every 6 hours for 10 days 3 History of multiple sclerosis, on Ocrevus 4 Chronic weakness in bilateral lower extremities related to history of multiple sclerosis 5 General medical debility, and patient is bedbound 6 Former history of smoking Plan: The patient was seen and evaluated by Dr. Schuster Chest x-ray and labs reviewed Remains on IV Solu-Medrol, bronchodilators, Zosyn Pro calcitonin 0.15 Titrate down the FiO2 as tolerated We will continue to follow I, the cosigning physician, performed a history & physical examination of the patient. Lungs sounds diminished in the bases. Maintaining good O2 saturations in the 90s on 4 L/m per nasal cannula. I discussed the assessment and plan of care with my nurse practitioner, Yuliana Soliman. I attest to the above note as dictated by her.
--- NOTE | 2020-11-30 12:50 | ECHOF ---
Referral Reason:Pleural effusion MEASUREMENTS -------- HEIGHT: 152.4 cm WEIGHT: 83.9 kg BP: RVIDd: 3.4 cm (< 3.3) IVSd: 0.9 cm (0.6 - 1.1) LVIDd: 4.5 cm (3.9 - 5.3) LVPWd: 1.1 cm (0.6 - 1.1) IVSs: 1.3 cm LVIDs: 3.3 cm LVPWs: 1.2 cm LA Diam: 3.9 cm (2.7 - 3.8) Ao Diam: 3.6 cm (2.0 - 3.7) AV Cusp: 2.7 cm (1.5 - 2.6) MV EXCURSION: 18.048 mm (> 18.000) MV EF SLOPE: 87 mm/s (70 - 150) EPSS: 0.6 cm MV E Jose: 0.70 m/s MV DecT: 209 ms MV A Jose: 0.78 m/s MV E/A Ratio: 0.90 RAP: 5.00 mmHg RVSP: 13.97 mmHg FINDINGS -------- Sinus rhythm. This was a technically good study. LV size, wall thickness and systolic function are normal, with an EF greater than 55%. The left bree tricular size is normal. The right ventricle is normal in size. The left atrial size is normal. The right atrial size is normal. There is mild aortic valve sclerosis. There is no evidence of aortic regurgitation. The mitral valve leaflets are mildly thickened. Mild mitral regurgitation is present. Mild tricuspid regurgitation present. Right ventricular systolic pressure is normal at < 35 mmHg. The pulmonic valve was not well visualized. The aortic root size is normal. There is no pericardial effusion. CONCLUSIONS -------- 1. LV size, wall thickness and systolic function are normal, with an EF greater than 55%. 2. The left ventricular size is normal. 3. The right ventricle is normal in size. 4. The left atrial size is normal. 5. The right atrial size is normal. 6. There is mild aortic valve sclerosis. 7. The mitral valve leaflets are mildly thickened. 8. Mild mitral regurgitation is present. 9. Mild tricuspid regurgitation present. 10. The pulmonic valve was not well visualized. 11. The aortic root size is normal. 12. There is no pericardial effusion. MANAGING MEMBER: Kandi Hdez RDCS
[2020-11-30] MEDS: CHOLECALCIFEROL 25 MCG (1000 IU) TABLET PO SCH (15:50)
--- NOTE | 2020-11-30 15:58 | PN ---
PROGRESS NOTE DATE OF SERVICE: 11/30/2020 This 65-year-old gentleman who was recently admitted has multiple sclerosis, acute exacerbation, admitted with shortness of breath, possibly multifactorial with COPD acute exacerbation. The patient also had element of CHF. Patient being closely monitored at this time. A 2D echocardiogram with Doppler done by Cardiology showed ejection fraction of more than 55%. Mild valvular abnormalities noted. The patient is on intensive bronchodilator treatment at this time and as well as steroids. PAST MEDICAL HISTORY: Reviewed. REVIEW OF SYSTEMS: CARDIOVASCULAR system: No angina or palpitations. RESPIRATORY: As mentioned earlier. GI: No nausea or vomiting. : No dysuria. NERVOUS SYSTEM: No numbness, weakness. MEDICATIONS: Reviewed and include: Tylenol, [place], DuoNeb, Xanax, Pepcid, Dulcolax. Doses reviewed. PHYSICAL EXAMINATION: Alert and oriented times three. Pulse is 75. Blood pressure 128/74, respirations 16, temperature 97.2, pulse ox 100 percent on room air. HEENT: Conjunctivae normal. NECK: No JVD. CARDIOVASCULAR: S1, S2 muffled. RESPIRATORY: Breath sounds diminished in the bases. A few scattered rhonchi. ABDOMEN: Soft, nontender. LEGS are no edema. No swelling. NERVOUS SYSTEM: No focal deficits. LAB STUDIES: WBC 15.1, hemoglobin 12.4, sodium 136, glucose noted. ASSESSMENT: 1. Shortness of breath, possibly multifactorial, chronic obstructive pulmonary disease acute exacerbation, possible atelectasis and possible congestive heart failure acute exacerbation, acute on chronic diastolic dysfunction. Ejection fraction 55%. 2. Rule out pneumonia. 3. Increased WBC. 4. Hyponatremia. 5. Anxiety state. 6. Acute respiratory alkalosis, present on admission. 7. History of recent multiple sclerosis acute exacerbation. 8. History of recent bilateral leg cellulitis as well as sepsis. 9. Gait dysfunction. 10.Chronic left leg deep vein thrombosis history. 11.History of recent urinary tract infection. 12.Remote history of nicotine dependence. 13.Elevated procalcitonin. RECOMMENDATIONS AND DISCUSSION: In this 65-year-old gentleman who presented with multiple complex medical issues, we will monitor the patient closely, continue the current medications, management and symptomatic treatment. did not show any evidence of any pulmonary embolism. Most recent chest x-ray which was reviewed personally by me showed evidence of increased bronchovascular markings. Otherwise, we will continue to monitor. Continue the bronchodilators. Procalcitonin also elevated. I would also recommend short course empiric antibiotics. Further recommendations to follow. MMODL / IJN: [id number] / MTDD
[2020-11-30 17:22] LABS: Glucose,Whole Blood 296 mg/dL (75-99)
[2020-11-30 21:12] LABS: Glucose,Whole Blood 173 mg/dL (75-99)
[2020-11-30 21:25] LABS: Folate, Serum >24.0 ng/mL
[2020-12-01] MEDS: BACLOFEN 10 MG TAB PO SCH ×5 (05:21→23:04)
[2020-12-01] MEDS: methylPREDNISolone SOD SUCCI 125 MG/2 ML VIAL IV SCH (05:21)
[2020-12-01 06:59] LABS: Glucose,Whole Blood 170 mg/dL (75-99)
[2020-12-01] MEDS: NON FORMULARY DRUG (Lubiprostone [Amitiza] 24 MCG Capsule) PO SCH ×2 (08:39→15:54)
[2020-12-01] MEDS: IPRATROPIUM-ALBUTEROL 3 ML NEB INHALATION SCH ×4 (08:45→21:00)
[2020-12-01] MEDS: INSULIN ASPART (NovoLOG) 100 UNIT/ML VIAL SQ SCH ×4 (08:48→21:01)
[2020-12-01] MEDS: PIPERACILLIN-TAZOBACTAM 3.375 GM in SODIUM CHLORIDE 0.9% 100 ML IVPB SCH ×3 (08:48→23:04)
[2020-12-01] MEDS: ALPRAZolam 0.25 MG TAB PO SCH (08:49)
[2020-12-01] MEDS: FAMOTIDINE 20 MG TAB PO SCH ×2 (08:49→20:08)
[2020-12-01] MEDS: FUROSEMIDE 10 MG/ML 4 ML VIAL IV SCH (08:49)
[2020-12-01] MEDS: HEPARIN SODIUM,PORCINE/PF 5,000 UNIT/0.5 ML SYRINGE SQ SCH ×2 (08:49→20:09)
[2020-12-01] MEDS: ASPIRIN 81 MG PO SCH (08:49)
[2020-12-01] MEDS: POTASSIUM CHLORIDE ER 10 MEQ TAB.ER.PRT PO SCH (08:49)
[2020-12-01] MEDS: DOCUSATE 100 MG CAP PO SCH ×2 (08:49→15:54)
[2020-12-01] MEDS: PANTOPRAZOLE 40 MG TABLET PO SCH (08:49)
[2020-12-01] MEDS: OXYBUTYNIN XL 5 MG TAB.ER.24 PO SCH (08:49)
[2020-12-01] MEDS: MAGNESIUM OXIDE 400 MG TAB PO SCH (08:49)
[2020-12-01] MEDS: SENNOSIDES 8.6 MG TAB PO SCH ×2 (08:49→15:54)
[2020-12-01] MEDS: NYSTATIN 100,000 UNIT/ML SUSP 500,000 UNIT/5 ML CUP PO SCH ×4 (08:50→20:09)
--- NOTE | 2020-12-01 11:07 | P.PN ---
Subjective Progress Note Date: 12/01/20 Principal diagnosis: Acute hypoxic respiratory failure secondary to mild fluid volume overload, bibasilar atelectasis 65-year-old white male patient with past medical history of multiple sclerosis on Ocrevus, and resultant weakness in bilateral lower extremities, and patient has been bedbound for the last 3 years. Patient was recently hospitalized from 11/20/2020 through 11/28/2020 for sepsis related to acute urinary tract infection secondary to nonobstructing right kidney stone measuring 3 mm, and bilateral lower extremity cellulitis. His urine culture from that admission was negative, however patient was found to have gram-positive bacteremia related to beta hemolytic strep group G, patient was treated with IV Rocephin, and discharged to [facility] on a short course of oral antibiotics in the form of Keflex 500 mg every 6 hours for 10 days. Patient was also supposed to follow up with Dr. Younger at the wound Center in the outpatient setting. Patient was at [facility] skilled nursing for less than 24 hours when he was brought back per EMS for evaluation of worsening shortness of breath, and patient felt like he could not catch his breath, he was placed on supplemental oxygen and he is not normally oxygen dependent. Chest x-ray showed small amount of airspace opacities over bilateral lower lung zones, with the possibility atelectasis versus pneumonia. TG was unremarkable, and showed normal sinus rhythm. Patient labs showed elevated white blood cell count of 14.7, hemoglobin of 14.5, his electrolytes and renal profile were unremarkable, BNP was 198, troponin was less than 0.012, COVID-19 was tested and came back negative. Patient was started on antibiotics in the form of Zithromax and Rocephin, he was started on breathing treatments. Patient is afebrile, patient is currently on 4 L of oxygen the pulse ox of 98%, hemodynamically he is stable, he is slightly tachypneic, with a respiratory rate between 20-24 breaths per minute. CTA chest showed emphysematous changes within the lungs, no evidence of filling defect to suggest pulmonary embolus, and there was some poor filling of small segmental branches. There were bilateral pleural effusions and associated atelectasis, emphysema, and possible congestive heart failure. Patient was given a dose of IV Lasix 40 mg IV push 1. Patient was also started on high-dose IV Solu-Medrol 250 mg every 6 hours for possibility of acute exacerbation of multiple sclerosis. But gas was completed on 4 L of oxygen, showing pO2 of 77, pCO2 of 39, and pH of 7.46, and this was done on FiO2 of 36%. Patient was tried on BiPAP support while waiting for the results of the ABGs, however upon reviewing the results of the ABGs there is no evidence of hypercapnic respiratory failure, patient was taken off BiPAP support and placed back on nasal cannula. Patient denies any swallowing difficulty, denies any his tory of chronic aspiration. Lung sounds revealed diminished breath sounds at the bases with some mild rhonchi. His bilateral lower extremities reveal mild edema, no weeping, no open areas noted The patient is seen today 11/30/2020 still remaining in the emergency room. He is currently sitting up on the stretcher. Awake and alert in no acute distress. Follow-up chest x-ray reveals COPD with basilar infiltrates bilaterally. Moderate nodular density along the lateral margin of left lower lung. He is currently maintaining O2 saturations up to 100% on 4 L/m per nasal cannula. He is afebrile. Hemodynamically stable. Blood cultures revealing no growth to date. White count 15.6. Hemoglobin 12.4. Platelets 391. Neutrophils 14.2. Sodium 136. Potassium 4.6. Bicarb 32. Creatinine 0.91. Glucose 186. Calcium 8.3. Pro-calcitonin 0.15. He remains on DuoNeb inhalations, IV Solu-Medrol. Antibiotics in the form of Zosyn. He remains on IV diuretics. Heparin for DVT prophylaxis. The patient is seen today 12/01/2020 in follow-up on the regular medical floor. He is currently sitting up in bed. Awake and alert in no acute distress. He is maintaining O2 saturations in the high 90s on 4 L/m per nasal cannula. He is afebrile. Hemodynamically stable. Echocardiogram revealed preserved left ventricular systolic function with ejection fraction greater than 55%. No significant valvular abnormalities. No pulmonary hypertension. Blood cultures revealing no growth to date. Blood glucose 170. He remains on IV diuretics, bronchodilators, IV Solu-Medrol. Antibiotics in the form of Zosyn. Heparin for DVT prophylaxis. Objective - Vital Signs Vital signs: Vital Signs Temp 98.0 F 12/01/20 08:00 Pulse 62 12/01/20 08:58 Resp 16 12/01/20 08:00 BP 123/79 12/01/20 08:00 Pulse Ox 99 12/01/20 08:00 Intake & Output 11/30/20 12/01/20 12/01/20 18:59 06:59 18:59 Output Total 1040 350 Balance -1040 -350 Output: Urine 1040 350 Straight 520 Other: Voiding Method Urinal Urinal Diaper Diaper # Voids 1 # Bowel Movements 0 - Exam GENERAL EXAM: Alert, very pleasant, 65-year-old male patient on 4 L of oxygen and the pulse ox of 99%, appears to be in no acute distress. HEAD: Normocephalic/atraumatic. EYES: Normal reaction of pupils, equal size. Conjunctiva pink, sclera white. NOSE: Clear with pink turbinates. THROAT: No erythema or exudates. NECK: No masses, no JVD, no thyroid enlargement, no adenopathy. CHEST: No chest wall deformity. Symmetrical expansion. LUNGS: Equal air entry with diminished breath sounds at the bases CVS: Regular rate and rhythm, normal S1 and S2, no gallops, no murmurs, no rubs ABDOMEN: Soft, nontender. No hepatosplenomegaly, normal bowel sounds, no guarding or rigidity. EXTREMITIES: No clubbing, mild lower extremity edema, no cyanosis, 2+ pulses and upper and lower extremities. MUSCULOSKELETAL: Muscle strength and tone weak secondary to multiple sclerosis. SPINE: No scoliosis or deformity SKIN: No rashes CENTRAL NERVOUS SYSTEM: No focal deficits, tone is normal in all 4 extremities. PSYCHIATRIC: Alert and oriented -3. Appropriate affect. Intact judgment and insight. - Labs CBC & Chem 7: 11/30/20 05:56 11/30/20 05:56 Labs: Abnormal Lab Results - Last 24 Hours (Table) 11/30/20 11/30/20 11/30/20 Range/Units 11:18 17:16 21:06 POC Glucose (mg/dL) 224 H 296 H 173 H (75-99) mg/dL 12/01/20 Range/Units 06:57 POC Glucose (mg/dL) 170 H (75-99) mg/dL Microbiology - Last 24 Hours (Table) 11/29/20 07:30 Blood Culture - Preliminary Blood No Growth after 48 hours 11/29/20 07:15 Blood Culture - Preliminary Blood No Growth after 48 hours Assessment and Plan Assessment: 1 Acute hypoxic respiratory failure possibly related to mild fluid overload, bibasilar atelectasis, and possibility of pneumonia is less likely ProCalcitonin 0.15. COVID-19 PCR test was negative. CTA chest showed no evidence of pulmonary embolism, although there is some poor filling of small segmental branches. Bilateral pleural effusions and associated atelectasis emphysema, and possible CHF were noted. 2 Recent hospitalization from 11/20/2020 through 11/28/2020 for sepsis related to bilateral lower extremity cellulitis, acute urinary tract infection, and beta hemolytic strep group G bacteremia, patient was treated with Rocephin, and discharged to [facility] and rehab on oral course of Keflex 500 mg every 6 hours for 10 days 3 History of multiple sclerosis, on Ocrevus 4 Chronic weakness in bilateral lower extremities related to history of multiple sclerosis 5 General medical debility, and patient is bedbound 6 Former history of smoking Plan: The patient was seen and evaluated by Dr. Schuster Add the incentive spirometer and encourage deep breathing exercises Titrate down the FiO2 as tolerated Discontinue IV Solu-Medrol Initiate Medrol Dosepak Discontinue Xanax Continue Zosyn and bronchodilators We will continue to follow I, the cosigning physician, performed a history & physical examination of the patient. Lungs sounds diminished in the bases. Maintaining good O2 saturations in the 90s on 4 L/m per nasal cannula. I discussed the assessment and plan of care with my nurse practitioner, Yuliana Soliman. I attest to the above note as dictated by her.
[2020-12-01 11:24] LABS: Glucose,Whole Blood 166 mg/dL (75-99)
[2020-12-01] MEDS: FOLIC ACID 1 MG TAB PO SCH (12:08)
[2020-12-01] MEDS: THIAMINE 100 MG TAB PO SCH (12:09)
--- NOTE | 2020-12-01 15:24 | P.PN ---
Subjective Progress Note Date: 12/01/20 Patient was seen for a follow-up. Patient states he is feeling better. His breathing has also improved. Patient states that he does not walk, only can stand with a standing walker. He can shuffle and drags feet just a little. He has not been ambulatory for the last 2 years. Denies any new neurological symptoms. Objective - Vital Signs Vital signs: Vital Signs Temp 98.0 F 12/01/20 08:00 Pulse 66 12/01/20 12:17 Resp 16 12/01/20 08:00 BP 123/79 12/01/20 08:00 Pulse Ox 99 12/01/20 08:00 Intake & Output 11/30/20 12/01/20 12/01/20 18:59 06:59 18:59 Output Total 1040 1200 Balance -1040 -1200 Output: Urine 1040 1200 Straight 520 Other: Voiding Method Urinal Urinal Diaper Diaper # Voids 1 # Bowel Movements 0 1 - Exam Patient's mental status is normal. Cranial nerves are normal. Muscle strength is about 4-4+ in the upper extremities. Patient able to lift leg about 20 on the right, 10 on the left, or 2 bilaterally. Ankle dorsiflexion 1-2 on the right, 2+ left. Patient can wiggle her toes better on the left. Patient has bilateral Babinski. - Labs CBC & Chem 7: 11/30/20 05:56 11/30/20 05:56 Labs: Abnormal Lab Results - Last 24 Hours (Table) 11/30/20 11/30/20 12/01/20 Range/Units 17:16 21:06 06:57 POC Glucose (mg/dL) 296 H 173 H 170 H (75-99) mg/dL 12/01/20 Range/Units 11:22 POC Glucose (mg/dL) 166 H (75-99) mg/dL Microbiology - Last 24 Hours (Table) 11/29/20 07:30 Blood Culture - Preliminary Blood No Growth after 48 hours 11/29/20 07:15 Blood Culture - Preliminary Blood No Growth after 48 hours Assessment and Plan Assessment: * Long-standing history of multiple sclerosis, status post recent treatment for possible MS exacerbation. Patient was just discharged 11/28/2020, now returned back to the hospital on 11/29/2020 for difficulty in breathing. CTA showed possibility of CHF, versus pneumonia/atelectasis. Doubt primary neurological cause of difficulty breathing. Patient on Zosyn, getting better. * History of multiple sclerosis on Ocrevus * Chronic paraplegia related to MS. * X tobacco use Plan: * Patient has been started on Zosyn for possible pneumonia. * No need for steroids from neurological standpoint. * B12 799, folate > 24.0, MMA 0.18, B6 8, vitamin D normal 37.1, TSH 1.90, RPR nonreactive and A1c 5.8. We will start B6 replacement. * Start PT and OT. * Neurology will sign off. Please reconsult neurology if any other concerns.
[2020-12-01] MEDS: CHOLECALCIFEROL 25 MCG (1000 IU) TABLET PO SCH (15:53)
[2020-12-01] MEDS: PYRIDOXINE 50 MG TAB PO SCH (15:57)
[2020-12-01 17:07] LABS: Glucose,Whole Blood 267 mg/dL (75-99)
--- NOTE | 2020-12-01 19:53 | PN ---
PROGRESS NOTE DATE OF SERVICE: 12/01/2020 This 65-year-old gentleman who was admitted with shortness of breath, possibly multifactorial, is being closely monitored. No chest pain. No palpitations. No fever. PHYSICAL EXAMINATION: Alert and oriented x3. Pulse 79, blood pressure 111/61, respiration 18, temperature 97.9, pulse ox 99% on 4 L. HEENT: Conjunctivae normal. Oral mucosa moist. NECK: No jugular venous distention. No lymph node enlargement. CARDIOVASCULAR: S1, S2, muffled. No S3, no S4, RESPIRATORY: Diminished breath sounds at the bases. A few scattered rhonchi and crackles. ABDOMEN: Soft, nontender. LEGS: No edema, no swelling. NERVOUS SYSTEM: No focal deficits. LAB STUDIES: WBC 10.2, hemoglobin 10.4, otherwise other labs are noted. Accu-Cheks noted. ASSESSMENT: 1. Shortness of breath possibly multifactorial with COPD exacerbation as well as atelectasis and possible CHF exacerbation, acute on chronic diastolic dysfunction, EF 50-55%. 2. Possible acute purulent tracheobronchitis. 3. Possible aspiration pneumonia. 4. Increased WBC. 5. Hyponatremia. 6. Anxiety state. 7. Acute respiratory alkalosis, present on admission. 8. History of recent multiple sclerosis acute exacerbation. 9. History of recent bilateral leg cellulitis as well as sepsis. 10.Gait dysfunction. 11.Chronic left leg deep vein thrombosis history. 12.History of recent urinary tract infection. 13.Remote history of nicotine dependence. 14.Elevated procalcitonin. RECOMMENDATIONS AND DISCUSSION: I recommend to continue current management and continue symptomatic treatment. Continue with diuretics which are changed to daily dose. Otherwise, continue the steroids and continue the broad-spectrum IV antibiotics. Otherwise, will continue to monitor. Repeat labs will be ordered tomorrow. I would also recommend a chest x-ray in the next 1-2 days to follow. Prognosis guarded. Closely follow with Dr. Schuster. MMJEFFL / IJN: [id number] /
[2020-12-01 20:53] LABS: Glucose,Whole Blood 233 mg/dL (75-99)
[2020-12-02] MEDS: BACLOFEN 10 MG TAB PO SCH ×4 (05:39→22:03)
[2020-12-02 06:51] LABS: African American GFR (CKD) >90 (>60 ml/min/1.73 sqM); Anion Gap 1 mmol/L; Blood Urea Nitrogen 30 mg/dL (9-20); Calcium 8.3 mg/dL (8.4-10.2); Carbon Dioxide 29 mmol/L (22-30); Chloride 106 mmol/L (98-107); Glucose 99 mg/dL (74-99); Non-African American GFR(CKD) >90 (>60 ml/min/1.73 sqM); Sodium 136 mmol/L (137-145)
[2020-12-02 06:54] LABS: Potassium 5.2 mmol/L (3.5-5.1)
[2020-12-02 06:56] LABS: Glucose,Whole Blood 115 mg/dL (75-99)
[2020-12-02] MEDS: IPRATROPIUM-ALBUTEROL 3 ML NEB INHALATION SCH ×4 (07:31→20:27)
[2020-12-02] MEDS: INSULIN ASPART (NovoLOG) 100 UNIT/ML VIAL SQ SCH ×4 (08:42→22:03)
[2020-12-02] MEDS: PIPERACILLIN-TAZOBACTAM 3.375 GM in SODIUM CHLORIDE 0.9% 100 ML IVPB SCH ×2 (08:50→16:39)
[2020-12-02] MEDS: FAMOTIDINE 20 MG TAB PO SCH ×2 (08:51→22:02)
[2020-12-02] MEDS: DOCUSATE 100 MG CAP PO SCH ×2 (08:51→16:39)
[2020-12-02] MEDS: NYSTATIN 100,000 UNIT/ML SUSP 500,000 UNIT/5 ML CUP PO SCH ×4 (08:51→22:03)
[2020-12-02] MEDS: PANTOPRAZOLE 40 MG TABLET PO SCH (08:51)
[2020-12-02] MEDS: FUROSEMIDE 10 MG/ML 4 ML VIAL IV SCH (08:51)
[2020-12-02] MEDS: MAGNESIUM OXIDE 400 MG TAB PO SCH (08:51)
[2020-12-02] MEDS: ASPIRIN 81 MG PO SCH (08:52)
[2020-12-02] MEDS: methylPREDNISolone 4 MG TAB TAPER PO SCH (08:52)
[2020-12-02] MEDS: HEPARIN SODIUM,PORCINE/PF 5,000 UNIT/0.5 ML SYRINGE SQ SCH ×2 (08:52→22:02)
[2020-12-02] MEDS: PYRIDOXINE 50 MG TAB PO SCH (08:52)
[2020-12-02] MEDS: SENNOSIDES 8.6 MG TAB PO SCH ×2 (08:52→16:39)
[2020-12-02] MEDS: OXYBUTYNIN XL 5 MG TAB.ER.24 PO SCH (08:52)
[2020-12-02 09:20] LABS: HCT 35.1 % (39.6-50.0); MCH 30.1 pg (27.0-32.0); MCHC 31.3 g/dL (32.0-37.0); MCV 96.2 fL (80.0-97.0); Mean Platelet Volume 9.8 fL (9.5-12.2); Platelet Count 341 X 10*3/uL (140-440); RBC 3.65 X 10*6/uL (4.40-5.60); WBC 9.37 X 10*3/uL (4.50-10.00)
[2020-12-02] MEDS: NON FORMULARY DRUG (Lubiprostone [Amitiza] 24 MCG Capsule) PO SCH ×2 (10:15→16:42)
[2020-12-02] MEDS: POTASSIUM CHLORIDE ER 10 MEQ TAB.ER.PRT PO SCH (10:21)
--- NOTE | 2020-12-02 11:36 | P.PN ---
Subjective Progress Note Date: 12/02/20 Principal diagnosis: Acute hypoxic respiratory failure secondary to mild fluid volume overload, bibasilar atelectasis 65-year-old white male patient with past medical history of multiple sclerosis on Ocrevus, and resultant weakness in bilateral lower extremities, and patient has been bedbound for the last 3 years. Patient was recently hospitalized from 11/20/2020 through 11/28/2020 for sepsis related to acute urinary tract infection secondary to nonobstructing right kidney stone measuring 3 mm, and bilateral lower extremity cellulitis. His urine culture from that admission was negative, however patient was found to have gram-positive bacteremia related to beta hemolytic strep group G, patient was treated with IV Rocephin, and discharged to [facility] on a short course of oral antibiotics in the form of Keflex 500 mg every 6 hours for 10 days. Patient was also supposed to follow up with Dr. Younger at the wound Center in the outpatient setting. Patient was at [facility] for less than 24 hours when he was brought back per EMS for evaluation of worsening shortness of breath, and patient felt like he could not catch his breath, he was placed on supplemental oxygen and he is not normally oxygen dependent. Chest x-ray showed small amount of airspace opacities over bilateral lower lung zones, with the possibility atelectasis versus pneumonia. TG was unremarkable, and showed normal sinus rhythm. Patient labs showed elevated white blood cell count of 14.7, hemoglobin of 14.5, his electrolytes and renal profile were unremarkable, BNP was 198, troponin was less than 0.012, COVID-19 was tested and came back negative. Patient was started on antibiotics in the form of Zithromax and Rocephin, he was started on breathing treatments. Patient is afebrile, patient is currently on 4 L of oxygen the pulse ox of 98%, hemodynamically he is stable, he is slightly tachypneic, with a respiratory rate between 20-24 breaths per minute. CTA chest showed emphysematous changes within the lungs, no evidence of filling defect to suggest pulmonary embolus, and there was some poor filling of small segmental branches. There were bilateral pleural effusions and associated atelectasis, emphysema, and possible congestive heart failure. Patient was given a dose of IV Lasix 40 mg IV push 1. Patient was also started on high-dose IV Solu-Medrol 250 mg every 6 hours for possibility of acute exacerbation of multiple sclerosis. But gas was completed on 4 L of oxygen, showing pO2 of 77, pCO2 of 39, and pH of 7.46, and this was done on FiO2 of 36%. Patient was tried on BiPAP support while waiting for the results of the ABGs, however upon reviewing the results of the ABGs there is no evidence of hypercapnic respiratory failure, patient was taken off BiPAP support and placed back on nasal cannula. Patient denies any swallowing difficulty, denies any his tory of chronic aspiration. Lung sounds revealed diminished breath sounds at the bases with some mild rhonchi. His bilateral lower extremities reveal mild edema, no weeping, no open areas noted The patient is seen today 11/30/2020 still remaining in the emergency room. He is currently sitting up on the stretcher. Awake and alert in no acute distress. Follow-up chest x-ray reveals COPD with basilar infiltrates bilaterally. Moderate nodular density along the lateral margin of left lower lung. He is currently maintaining O2 saturations up to 100% on 4 L/m per nasal cannula. He is afebrile. Hemodynamically stable. Blood cultures revealing no growth to date. White count 15.6. Hemoglobin 12.4. Platelets 391. Neutrophils 14.2. Sodium 136. Potassium 4.6. Bicarb 32. Creatinine 0.91. Glucose 186. Calcium 8.3. Pro-calcitonin 0.15. He remains on DuoNeb inhalations, IV Solu-Medrol. Antibiotics in the form of Zosyn. He remains on IV diuretics. Heparin for DVT prophylaxis. The patient is seen today 12/01/2020 in follow-up on the regular medical floor. He is currently sitting up in bed. Awake and alert in no acute distress. He is maintaining O2 saturations in the high 90s on 4 L/m per nasal cannula. He is afebrile. Hemodynamically stable. Echocardiogram revealed preserved left ventricular systolic function with ejection fraction greater than 55%. No significant valvular abnormalities. No pulmonary hypertension. Blood cultures revealing no growth to date. Blood glucose 170. He remains on IV diuretics, bronchodilators, IV Solu-Medrol. Antibiotics in the form of Zosyn. Heparin for DVT prophylaxis. The patient is seen today 12/02/2020 in follow-up on the regular medical floor. He is currently resting comfortably in bed. Awake and alert in no acute distress. Feeling better today compared to yesterday. Feeling stronger. Less short of breath. He is doing better with his incentive spirometer. Maintaining O2 saturations in the low 90s on 4 L nasal cannula. Afebrile. Hemodynamically stable. Blood cultures reveal no growth. White count 9.3. Hemoglobin 11.0. Sodium 136. Potassium 5.2. Creatinine 0.72. He remains on IV diuretics, bronc hodilators, prednisone. Antibiotics in the form of Zosyn. Heparin for DVT prophylaxis. Objective - Vital Signs Vital signs: Vital Signs Temp 98.8 F 12/02/20 08:00 Pulse 71 12/02/20 11:29 Resp 20 12/02/20 09:00 BP 122/74 12/02/20 08:00 Pulse Ox 91 L 12/02/20 08:00 Intake & Output 12/01/20 12/02/20 12/02/20 18:59 06:59 18:59 Intake Total 580 Output Total 9301 404 6604 Balance -0 700 Intake: IV 100 Piperacillin-Tazobactam 3 100 .375 gm In Sodium Chloride 0.9% 100 ml @ 25 mls/hr IVPB Q[facility] Rx# :[id number] Oral 480 Output: Urine [id number] Other: Voiding Method Urinal External Catheter External Catheter Diaper # Bowel Movements 1 1 - Exam GENERAL EXAM: Alert, very pleasant, 65-year-old male patient on 4 L of oxygen and the pulse ox of 91%, appears to be in no acute distress. HEAD: Normocephalic/atraumatic. EYES: Normal reaction of pupils, equal size. Conjunctiva pink, sclera white. NOSE: Clear with pink turbinates. THROAT: No erythema or exudates. NECK: No masses, no JVD, no thyroid enlargement, no adenopathy. CHEST: No chest wall deformity. Symmetrical expansion. LUNGS: Equal air entry with diminished breath sounds at the bases CVS: Regular rate and rhythm, normal S1 and S2, no gallops, no murmurs, no rubs ABDOMEN: Soft, nontender. No hepatosplenomegaly, normal bowel sounds, no guarding or rigidity. EXTREMITIES: No clubbing, mild lower extremity edema, no cyanosis, 2+ pulses and upper and lower extremities. MUSCULOSKELETAL: Muscle strength and tone weak secondary to multiple sclerosis. SPINE: No scoliosis or deformity SKIN: No rashes CENTRAL NERVOUS SYSTEM: No focal deficits, tone is normal in all 4 extremities. PSYCHIATRIC: Alert and oriented -3. Appropriate affect. Intact judgment and insight. - Labs CBC & Chem 7: 12/02/20 05:54 12/02/20 05:54 Labs: Abnormal Lab Results - Last 24 Hours (Table) 12/01/20 12/01/20 12/02/20 Range/Units 17:06 20:49 05:54 RBC 3.65 L (4.40-5.60) X 10*6/uL Hgb 11.0 L (13.0-17.0) g/dL Hct 35.1 L (39.6-50.0) % MCHC 31.3 L (32.0-37.0) g/dL Sodium (137-145) mmol/L Potassium (3.5-5.1) mmol/L BUN (9-20) mg/dL POC Glucose (mg/dL) 267 H 233 H (75-99) mg/dL Calcium (8.4-10.2) mg/dL 12/02/20 12/02/20 Range/Units 05:54 06:55 RBC (4.40-5.60) X 10*6/uL Hgb (13.0-17.0) g/dL Hct (39.6-50.0) % MCHC (32.0-37.0) g/dL Sodium 136 L (137-145) mmol/L Potassium 5.2 H (3.5-5.1) mmol/L BUN 30 H (9-20) mg/dL POC Glucose (mg/dL) 115 H (75-99) mg/dL Calcium 8.3 L (8.4-10.2) mg/dL Microbiology - Last 24 Hours (Table) 11/29/20 07:30 Blood Culture - Preliminary Blood No Growth after 72 hours 11/29/20 07:15 Blood Culture - Preliminary Blood No Growth after 72 hours Assessment and Plan Assessment: 1 Acute hypoxic respiratory failure possibly related to mild fluid overload, bibasilar atelectasis, and possibility of pneumonia is less likely ProCalcitonin 0.15. COVID-19 PCR test was negative. CTA chest showed no evidence of pulmonary embolism, although there is some poor filling of small segmental branches. Bilateral pleural effusions and associated atelectasis emphysema, and possible CHF were noted. Remains on IV diuretics, antibiotics, bronchodilators 2 Recent hospitalization from 11/20/2020 through 11/28/2020 for sepsis related to bilateral lower extremity cellulitis, acute urinary tract infection, and beta hemolytic strep group G bacteremia, patient was treated with Rocephin, and discharged to [facility] nursing and rehab on oral course of Keflex 500 mg every 6 hours for 10 days 3 History of multiple sclerosis, on Ocrevus 4 Chronic weakness in bilateral lower extremities related to history of multiple sclerosis 5 General medical debility, and patient is bedbound 6 Former history of smoking Plan: The patient was seen and evaluated by Dr. Schuster Working well with the incentive spirometer and encourage deep breathing exercises Titrate down the FiO2 as tolerated Continue Zosyn, Medrol Dosepak and bronchodilators Plans for possible return to [facility] on Friday We will continue to follow I, the cosigning physician, performed a history & physical examination of the patient. Lungs sounds diminished in the bases. Maintaining good O2 saturations in the 90s on 4 L/m per nasal cannula. I discussed the assessment and plan of care with my nurse practitioner, Yuliana Soliman. I attest to the above note as dictated by her.
[2020-12-02 11:38] LABS: Glucose,Whole Blood 131 mg/dL (75-99)
[2020-12-02 12:13] LABS: Basophils # (A) 0.01 X 10*3/uL (0.00-0.10); Basophils % (A) 0.1 %; Eosinophils # (A) 0.02 X 10*3/uL (0.04-0.35); Eosinophils % (A) 0.2 %; Lymphocytes % (A) 12.8 %; Monocytes % (A) 18.1 %; Neutrophils # (A) 6.33 X 10*3/uL (1.80-7.70); Neutrophils % (A) 67.6 %
[2020-12-02] MEDS: THIAMINE 100 MG TAB PO SCH (12:31)
[2020-12-02] MEDS: FOLIC ACID 1 MG TAB PO SCH (12:31)
--- NOTE | 2020-12-02 15:55 | PN ---
PROGRESS NOTE DATE OF SERVICE: 12/02/2020 INTERVAL HISTORY: This is a 65-year-old gentleman who was admitted with shortness of breath, multifactorial, is being closely monitored. No chest pain. No palpitations. No fever. The patient is on methylprednisone 25 mg p.o. daily. No chest pain. No palpitations. No fever. PHYSICAL EXAMINATION: GENERAL: Patient is alert and oriented times three. VITAL SIGNS: Pulse 82, blood pressure 126/78, respirations 18, temperature 97.8, pulse ox 99% on 2 liters. HEENT: Conjunctivae normal. Oral mucosa moist. NECK: No jugular venous distention. RESPIRATORY: Breath sounds diminished at the bases. A few scattered rhonchi. HEART: S1 and S2, muffled. ABDOMEN: Soft. EXTREMITIES: No edema, no swelling. NERVOUS: Diffusely weak. LABS: Hemoglobin is 11, otherwise sodium 132, potassium 5.2. Accu-Cheks noted. ASSESSMENT: 1. Shortness of breath possibly multifactorial with COPD acute exacerbation with atelectasis as well as CHF acute exacerbation with acute on chronic diastolic dysfunction ejection fraction 50-55%. 2. Possible acute purulent tracheobronchitis. 3. Possible aspiration pneumonia. 4. Increased WBC. 5. Hyponatremia. 6. Anxiety state. 7. Acute respiratory alkalosis, present on admission. 8. History of recent multiple sclerosis with acute exacerbation. 9. History of recent bilateral leg cellulitis as well as sepsis with beta-hemolytic group G strep. 10.Gait dysfunction. 11.Chronic left leg deep vein thrombosis history. 12.History of recent urinary tract infection. 13.Remote history of nicotine dependence. 14.Elevated procalcitonin. 15.FULL CODE. RECOMMENDATION AND DISCUSSION: In this 65-year-old gentleman who presented with multiple complex medical issues, we will monitor the patient closely. Continue the current management. Continue symptomatic treatment. Continue with DVT prophylaxis. Continue with steroids. Continue with empiric antibiotics. Closely follow with Dr. Schuster. PT OT evaluation, possible ECF rehab. Guarded prognosis. Further recommendations to follow. MMODL / IJN: [id number] /
[2020-12-02 16:23] LABS: Glucose,Whole Blood 188 mg/dL (75-99)
[2020-12-02] MEDS: CHOLECALCIFEROL 25 MCG (1000 IU) TABLET PO SCH (16:39)
[2020-12-02 20:43] LABS: Glucose,Whole Blood 191 mg/dL (75-99)
[2020-12-03] MEDS: BACLOFEN 10 MG TAB PO SCH ×6 (00:56→22:49)
[2020-12-03] MEDS: PIPERACILLIN-TAZOBACTAM 3.375 GM in SODIUM CHLORIDE 0.9% 100 ML IVPB SCH ×4 (00:56→22:44)
[2020-12-03 07:15] LABS: Glucose,Whole Blood 108 mg/dL (75-99)
[2020-12-03] MEDS: IPRATROPIUM-ALBUTEROL 3 ML NEB INHALATION SCH ×4 (08:08→21:33)
[2020-12-03] MEDS: INSULIN ASPART (NovoLOG) 100 UNIT/ML VIAL SQ SCH ×4 (08:15→21:41)
[2020-12-03] MEDS: FUROSEMIDE 10 MG/ML 4 ML VIAL IV SCH (08:24)
[2020-12-03] MEDS: HEPARIN SODIUM,PORCINE/PF 5,000 UNIT/0.5 ML SYRINGE SQ SCH ×2 (08:24→20:30)
[2020-12-03] MEDS: DOCUSATE 100 MG CAP PO SCH ×2 (08:24→17:23)
[2020-12-03] MEDS: ASPIRIN 81 MG PO SCH (08:24)
[2020-12-03] MEDS: PANTOPRAZOLE 40 MG TABLET PO SCH (08:24)
[2020-12-03] MEDS: POTASSIUM CHLORIDE ER 10 MEQ TAB.ER.PRT PO SCH (08:24)
[2020-12-03] MEDS: methylPREDNISolone 4 MG TAB TAPER PO SCH (08:24)
[2020-12-03] MEDS: NYSTATIN 100,000 UNIT/ML SUSP 500,000 UNIT/5 ML CUP PO SCH ×4 (08:24→20:30)
[2020-12-03] MEDS: FAMOTIDINE 20 MG TAB PO SCH ×2 (08:25→20:31)
[2020-12-03] MEDS: SENNOSIDES 8.6 MG TAB PO SCH ×2 (08:25→17:23)
[2020-12-03] MEDS: PYRIDOXINE 50 MG TAB PO SCH (08:25)
[2020-12-03] MEDS: OXYBUTYNIN XL 5 MG TAB.ER.24 PO SCH (08:25)
[2020-12-03] MEDS: MAGNESIUM OXIDE 400 MG TAB PO SCH (08:25)
[2020-12-03] MEDS: NON FORMULARY DRUG (Lubiprostone [Amitiza] 24 MCG Capsule) PO SCH ×2 (08:45→17:23)
[2020-12-03] MEDS: THIAMINE 100 MG TAB PO SCH (11:00)
[2020-12-03] MEDS: FOLIC ACID 1 MG TAB PO SCH (11:00)
[2020-12-03 11:43] LABS: Glucose,Whole Blood 98 mg/dL (75-99)
--- NOTE | 2020-12-03 12:42 | P.PN ---
Subjective Progress Note Date: 12/03/20 Principal diagnosis: Acute hypoxic respiratory failure secondary to mild fluid volume overload, bibasilar atelectasis 65-year-old white male patient with past medical history of multiple sclerosis on Ocrevus, and resultant weakness in bilateral lower extremities, and patient has been bedbound for the last 3 years. Patient was recently hospitalized from 11/20/2020 through 11/28/2020 for sepsis related to acute urinary tract infection secondary to nonobstructing right kidney stone measuring 3 mm, and bilateral lower extremity cellulitis. His urine culture from that admission was negative, however patient was found to have gram-positive bacteremia related to beta hemolytic strep group G, patient was treated with IV Rocephin, and discharged to [facility] on a short course of oral antibiotics in the form of Keflex 500 mg every 6 hours for 10 days. Patient was also supposed to follow up with Dr. Younger at the wound Center in the outpatient setting. Patient was at [facility] for less than 24 hours when he was brought back per EMS for evaluation of worsening shortness of breath, and patient felt like he could not catch his breath, he was placed on supplemental oxygen and he is not normally oxygen dependent. Chest x-ray showed small amount of airspace opacities over bilateral lower lung zones, with the possibility atelectasis versus pneumonia. TG was unremarkable, and showed normal sinus rhythm. Patient labs showed elevated white blood cell count of 14.7, hemoglobin of 14.5, his electrolytes and renal profile were unremarkable, BNP was 198, troponin was less than 0.012, COVID-19 was tested and came back negative. Patient was started on antibiotics in the form of Zithromax and Rocephin, he was started on breathing treatments. Patient is afebrile, patient is currently on 4 L of oxygen the pulse ox of 98%, hemodynamically he is stable, he is slightly tachypneic, with a respiratory rate between 20-24 breaths per minute. CTA chest showed emphysematous changes within the lungs, no evidence of filling defect to suggest pulmonary embolus, and there was some poor filling of small segmental branches. There were bilateral pleural effusions and associated atelectasis, emphysema, and possible congestive heart failure. Patient was given a dose of IV Lasix 40 mg IV push 1. Patient was also started on high-dose IV Solu-Medrol 250 mg every 6 hours for possibility of acute exacerbation of multiple sclerosis. But gas was completed on 4 L of oxygen, showing pO2 of 77, pCO2 of 39, and pH of 7.46, and this was done on FiO2 of 36%. Patient was tried on BiPAP support while waiting for the results of the ABGs, however upon reviewing the results of the ABGs there is no evidence of hypercapnic respiratory failure, patient was taken off BiPAP support and placed back on nasal cannula. Patient denies any swallowing difficulty, denies any his tory of chronic aspiration. Lung sounds revealed diminished breath sounds at the bases with some mild rhonchi. His bilateral lower extremities reveal mild edema, no weeping, no open areas noted The patient is seen today 11/30/2020 still remaining in the emergency room. He is currently sitting up on the stretcher. Awake and alert in no acute distress. Follow-up chest x-ray reveals COPD with basilar infiltrates bilaterally. Moderate nodular density along the lateral margin of left lower lung. He is currently maintaining O2 saturations up to 100% on 4 L/m per nasal cannula. He is afebrile. Hemodynamically stable. Blood cultures revealing no growth to date. White count 15.6. Hemoglobin 12.4. Platelets 391. Neutrophils 14.2. Sodium 136. Potassium 4.6. Bicarb 32. Creatinine 0.91. Glucose 186. Calcium 8.3. Pro-calcitonin 0.15. He remains on DuoNeb inhalations, IV Solu-Medrol. Antibiotics in the form of Zosyn. He remains on IV diuretics. Heparin for DVT prophylaxis. The patient is seen today 12/01/2020 in follow-up on the regular medical floor. He is currently sitting up in bed. Awake and alert in no acute distress. He is maintaining O2 saturations in the high 90s on 4 L/m per nasal cannula. He is afebrile. Hemodynamically stable. Echocardiogram revealed preserved left ventricular systolic function with ejection fraction greater than 55%. No significant valvular abnormalities. No pulmonary hypertension. Blood cultures revealing no growth to date. Blood glucose 170. He remains on IV diuretics, bronchodilators, IV Solu-Medrol. Antibiotics in the form of Zosyn. Heparin for DVT prophylaxis. The patient is seen today 12/02/2020 in follow-up on the regular medical floor. He is currently resting comfortably in bed. Awake and alert in no acute distress. Feeling better today compared to yesterday. Feeling stronger. Less short of breath. He is doing better with his incentive spirometer. Maintaining O2 saturations in the low 90s on 4 L nasal cannula. Afebrile. Hemodynamically stable. Blood cultures reveal no growth. White count 9.3. Hemoglobin 11.0. Sodium 136. Potassium 5.2. Creatinine 0.72. He remains on IV diuretics, bronc hodilators, prednisone. Antibiotics in the form of Zosyn. Heparin for DVT prophylaxis. The patient is seen today 12/03/2020 in follow-up on the regular medical floor. He is currently resting comfortably in bed. Awake and alert in no acute distress. Maintaining O2 saturations in the 90s on 1 L/m per nasal cannula. Blood cultures reveal no growth. Blood glucose 98. He remains on IV diuretics, bronchodilators, prednisone. Antibiotics in the form of Zosyn. Heparin for DVT prophylaxis. Probable transfer to [facility] in a.m. Objective - Vital Signs Vital signs: Vital Signs Temp 98.3 F 12/03/20 07:59 Pulse 66 12/03/20 11:21 Resp 20 12/03/20 08:37 BP 131/83 12/03/20 07:59 Pulse Ox 98 12/03/20 07:59 Intake & Output 12/02/20 12/03/20 12/03/20 18:59 06:59 18:59 Output Total 3800 1400 Balance -3800 -1400 Output: Urine 3800 1400 Other: Voiding Method External Catheter External Catheter External Catheter - Exam GENERAL EXAM: Alert, very pleasant, 65-year-old male patient on 1 L of oxygen and the pulse ox of 98%, appears to be in no acute distress. HEAD: Normocephalic/atraumatic. EYES: Normal reaction of pupils, equal size. Conjunctiva pink, sclera white. NOSE: Clear with pink turbinates. THROAT: No erythema or exudates. NECK: No masses, no JVD, no thyroid enlargement, no adenopathy. CHEST: No chest wall deformity. Symmetrical expansion. LUNGS: Equal air entry with diminished breath sounds at the bases CVS: Regular rate and rhythm, normal S1 and S2, no gallops, no murmurs, no rubs ABDOMEN: Soft, nontender. No hepatosplenomegaly, normal bowel sounds, no guarding or rigidity. EXTREMITIES: No clubbing, mild lower extremity edema, no cyanosis, 2+ pulses and upper and lower extremities. MUSCULOSKELETAL: Muscle strength and tone weak secondary to multiple sclerosis. SPINE: No scoliosis or deformity SKIN: No rashes CENTRAL NERVOUS SYSTEM: No focal deficits, tone is normal in all 4 extremities. PSYCHIATRIC: Alert and oriented -3. Appropriate affect. Intact judgment and insight. - Labs CBC & Chem 7: 12/02/20 05:54 12/02/20 05:54 Labs: Abnormal Lab Results - Last 24 Hours (Table) 12/02/20 12/02/20 12/03/20 Range/Units 16:21 20:41 07:09 POC Glucose (mg/dL) 188 H 191 H 108 H (75-99) mg/dL Microbiology - Last 24 Hours (Table) 11/29/20 07:30 Blood Culture - Preliminary Blood No Growth after 96 hours 11/29/20 07:15 Blood Culture - Preliminary Blood No Growth after 96 hours Assessment and Plan Assessment: 1 Acute hypoxic respiratory failure possibly related to mild fluid overload, bibasilar atelectasis, and possibility of pneumonia is less likely ProCalcitonin 0.15. COVID-19 PCR test was negative. CTA chest showed no evidence of pul monary embolism, although there is some poor filling of small segmental branches. Bilateral pleural effusions and associated atelectasis emphysema, and possible CHF were noted. Remains on IV diuretics, antibiotics, bronchodilators 2 Recent hospitalization from 11/20/2020 through 11/28/2020 for sepsis related to bilateral lower extremity cellulitis, acute urinary tract infection, and beta hemolytic strep group G bacteremia, patient was treated with Rocephin, and discharged to [facility] nursing and rehab on oral course of Keflex 500 mg every 6 hours for 10 days 3 History of multiple sclerosis, on Ocrevus 4 Chronic weakness in bilateral lower extremities related to history of multiple sclerosis 5 General medical debility, and patient is bedbound 6 Former history of smoking Plan: The patient was seen and evaluated by Dr. Landen Humphrey, on 1 L nasal cannula Working well with the incentive spirometer Continue Zosyn, Medrol Dosepak and bronchodilators Plans for return to [facility] tomorrow We will continue to follow I, the cosigning physician, performed a history & physical examination of the patient. Lungs sounds diminished in the bases. Maintaining good O2 saturations in the 90s on 1 L/m per nasal cannula. I discussed the assessment and plan of care with my nurse practitioner, Yuliana Soliman. I attest to the above note as dictated by her.
[2020-12-03] MEDS: LACTULOSE 20 GM/30 ML CUP PO SCH ×4 (13:38→23:56)
[2020-12-03 17:12] LABS: Glucose,Whole Blood 161 mg/dL (75-99)
[2020-12-03] MEDS: CHOLECALCIFEROL 25 MCG (1000 IU) TABLET PO SCH (17:23)
[2020-12-03 21:24] LABS: Glucose,Whole Blood 137 mg/dL (75-99)
--- NOTE | 2020-12-03 21:36 | PN ---
PROGRESS NOTE DATE OF SERVICE: 12/03/2020. This 65-year-old gentleman who was admitted with shortness of breath, possibly multifactorial, is being closely monitored. No chest pain. No palpitations. No fever. The patient also had recent admission for MS exacerbation. The patient had gait dysfunction. ECF rehab is being planned at this time. PHYSICAL EXAMINATION: Alert and oriented x2. Pulse 71. Blood pressure 121/77, respiration 20, temperature 97.7, pulse ox 94% on 2 L. HEENT: Conjunctivae normal. NECK: No JVD. CARDIOVASCULAR: S1, S2 muffled. RESPIRATORY: Breath sounds diminished in the bases. A few scattered rhonchi and crackles. ABDOMEN: Soft, nontender. Legs: No edema. No swelling. NERVOUS SYSTEM: Diffusely weak, contractures. LABS: WBC 9.7, hemoglobin 11, sodium 136, potassium 5.2. ASSESSMENT: 1. Shortness of breath possibly multifactorial, chronic obstructive pulmonary disease acute exacerbation with atelectasis as well as congestive heart failure acute exacerbation, acute on chronic diastolic dysfunction, ejection fraction 50-55 percent. 2. Possible acute purulent tracheobronchitis. 3. Possible aspiration pneumonia. 4. Increased WBC. 5. Hyponatremia. 6. Anxiety state. 7. Acute respiratory alkalosis, present on admission. 8. History of recent multiple sclerosis and acute exacerbation. 9. History of recent bilateral leg cellulitis as well as sepsis and beta hemolytic Streptococcus group G. 10.Gait dysfunction. 11.Chronic left leg deep vein thrombosis history. 12.History of recent urinary tract infection. 13.Remote history of nicotine dependence. 14.Elevated procalcitonin. 15.FULL CODE. RECOMMENDATIONS AND DISCUSSION: Recommend to continue current medications, symptomatic treatment. Otherwise at this time I would recommend continue the bronchodilators, steroids, antibiotics and possible ECF rehab soon. Further recommendations to follow. MMODL / IJN: [id number] /
[2020-12-03] MEDS: HYDROcodone/APAP 5-325MG 1 EACH TAB PO PRN (22:45)
[2020-12-04] MEDS: LACTULOSE 20 GM/30 ML CUP PO SCH ×3 (03:33→11:48)
[2020-12-04] MEDS: HYDROcodone/APAP 5-325MG 1 EACH TAB PO PRN (04:46)
[2020-12-04] MEDS: BACLOFEN 10 MG TAB PO SCH ×2 (04:47→12:31)
[2020-12-04 06:53] LABS: Glucose,Whole Blood 117 mg/dL (75-99)
[2020-12-04] MEDS: INSULIN ASPART (NovoLOG) 100 UNIT/ML VIAL SQ SCH ×2 (08:51→12:36)
[2020-12-04] MEDS: IPRATROPIUM-ALBUTEROL 3 ML NEB INHALATION SCH ×2 (08:55→12:03)
[2020-12-04] MEDS: HEPARIN SODIUM,PORCINE/PF 5,000 UNIT/0.5 ML SYRINGE SQ SCH (09:01)
[2020-12-04] MEDS: FUROSEMIDE 10 MG/ML 4 ML VIAL IV SCH (09:02)
[2020-12-04] MEDS: ASPIRIN 81 MG PO SCH (09:02)
[2020-12-04] MEDS: NON FORMULARY DRUG (Lubiprostone [Amitiza] 24 MCG Capsule) PO SCH (09:02)
[2020-12-04] MEDS: NYSTATIN 100,000 UNIT/ML SUSP 500,000 UNIT/5 ML CUP PO SCH ×2 (09:03→12:32)
[2020-12-04] MEDS: POTASSIUM CHLORIDE ER 10 MEQ TAB.ER.PRT PO SCH (09:03)
[2020-12-04] MEDS: methylPREDNISolone 4 MG TAB TAPER PO SCH (09:03)
[2020-12-04] MEDS: DOCUSATE 100 MG CAP PO SCH (09:04)
[2020-12-04] MEDS: MAGNESIUM OXIDE 400 MG TAB PO SCH (09:04)
[2020-12-04] MEDS: PYRIDOXINE 50 MG TAB PO SCH (09:04)
[2020-12-04] MEDS: PANTOPRAZOLE 40 MG TABLET PO SCH (09:04)
[2020-12-04] MEDS: SENNOSIDES 8.6 MG TAB PO SCH (09:06)
[2020-12-04] MEDS: OXYBUTYNIN XL 5 MG TAB.ER.24 PO SCH (09:07)
[2020-12-04] MEDS: FAMOTIDINE 20 MG TAB PO SCH (09:07)
[2020-12-04] MEDS: PIPERACILLIN-TAZOBACTAM 3.375 GM in SODIUM CHLORIDE 0.9% 100 ML IVPB SCH (11:47)
[2020-12-04 11:58] LABS: Glucose,Whole Blood 125 mg/dL (75-99)
[2020-12-04] MEDS: FOLIC ACID 1 MG TAB PO SCH (12:32)
[2020-12-04] MEDS: THIAMINE 100 MG TAB PO SCH (12:32)
--- NOTE | 2020-12-04 12:51 | P.PN ---
Subjective Progress Note Date: 12/04/20 Principal diagnosis: Acute hypoxic rest or a failure secondary to mild fluid or volume overload 65-year-old white male patient with past medical history of multiple sclerosis on Ocrevus, and resultant weakness in bilateral lower extremities, and patient has been bedbound for the last 3 years. Patient was recently hospitalized from 11/20/2020 through 11/28/2020 for sepsis related to acute urinary tract infection secondary to nonobstructing right kidney stone measuring 3 mm, and bilateral lower extremity cellulitis. His urine culture from that admission was negative, however patient was found to have gram-positive bacteremia related to beta hemolytic strep group G, patient was treated with IV Rocephin, and discharged to [facility] on a short course of oral antibiotics in the form of Keflex 500 mg every 6 hours for 10 days. Patient was also supposed to follow up with Dr. Younger at the wound Center in the outpatient setting. [facility] when he was brought back per EMS for evaluation of worsening shortness of breath, and patient felt like he could not catch his breath, he was placed on supplemental oxygen and he is not normally oxygen dependent. Chest x-ray showed small amount of airspace opacities over bilateral lower lung zones, with the possibility atelectasis versus pneumonia. TG was unremarkable, and showed normal sinus rhythm. Patient labs showed elevated white blood cell count of 14.7, hemoglobin of 14.5, his electrolytes and renal profile were unremarkable, BNP was 198, troponin was less than 0.012, COVID-19 was tested and came back negative. Patient was started on antibiotics in the form of Zithromax and Rocephin, he was started on breathing treatments. Patient is afebrile, patient is currently on 4 L of oxygen the pulse ox of 98%, hemodynamically he is stable, he is slightly tachypneic, with a respiratory rate between 20-24 breaths per minute. CTA chest showed emphysematous changes within the lungs, no evidence of filling defect to suggest pulmonary embolus, and there was some poor filling of small segmental branches. There were bilateral pleural effusions and associated atelectasis, emphysema, and possible congestive heart failure. Patient was given a dose of IV Lasix 40 mg IV push 1. Patient was also started on high-dose IV Solu-Medrol 250 mg every 6 hours for possibility of acute exacerbation of multiple sclerosis. But gas was completed on 4 L of oxygen, showing pO2 of 77, pCO2 of 39, and pH of 7.46, and this was done on FiO2 of 36%. Patient was tried on BiPAP support while waiting for the results of the ABGs, however upon reviewing the results of the ABGs there is no evidence of hypercapnic respiratory failure, patient was taken off BiPAP support and placed back on nasal cannula. Patient denies any swallowing difficulty, denies any history of chronic aspiration. Lung sounds revealed diminished breath sounds at the bases with some mild rhonchi. His bilateral lower extremities reveal mild edema, no weeping, no open areas noted The patient is seen today 11/30/2020 still remaining in the emergency room. He is currently sitting up on the stretcher. Awake and alert in no acute distress. Follow-up chest x-ray reveals COPD with basilar infiltrates bilaterally. Moderate nodular density along the lateral margin of left lower lung. He is currently maintaining O2 saturations up to 100% on 4 L/m per nasal cannula. He is afebrile. Hemodynamically stable. Blood cultures revealing no growth to date. White count 15.6. Hemoglobin 12.4. Platelets 391. Neutrophils 14.2. Sodium 136. Potassium 4.6. Bicarb 32. Creatinine 0.91. Glucose 186. Calcium 8.3. Pro-calcitonin 0.15. He remains on DuoNeb inhalations, IV Solu-Medrol. Antibiotics in the form of Zosyn. He remains on IV diuretics. Heparin for DVT prophylaxis. The patient is seen today 12/01/2020 in follow-up on the regular medical floor. He is currently sitting up in bed. Awake and alert in no acute distress. He is maintaining O2 saturations in the high 90s on 4 L/m per nasal cannula. He is afebrile. Hemodynamically stable. Echocardiogram revealed preserved left ventricular systolic function with ejection fraction greater than 55%. No significant valvular abnormalities. No pulmonary hypertension. Blood cultures revealing no growth to date. Blood glucose 170. He remains on IV diuretics, bronchodilators, IV Solu-Medrol. Antibiotics in the form of Zosyn. Heparin for DVT prophylaxis. The patient is seen today 12/02/2020 in follow-up on the regular medical floor. He is currently resting comfortably in bed. Awake and alert in no acute distress. Feeling better today compared to yesterday. Feeling stronger. Less short of breath. He is doing better with his incentive spirometer. Maintaining O2 saturations in the low 90s on 4 L nasal cannula. Afebrile. Hemodynamically stable. Blood cultures reveal no growth. White count 9.3. Hemoglobin 11.0. Sodium 136. Potassium 5.2. Creatinine 0.72. He remains on IV diuretics, bronchodilators, prednisone. Antibiotics in the form of Zosyn. Heparin for DVT prophylaxis. The patient is seen today 12/03/2020 in follow-up on the regular medical floor. He is currently resting comfortably in bed. Awake and alert in no acute distress. Maintaining O2 saturations in the 90s on 1 L/m per nasal cannula. Bl ood cultures reveal no growth. Blood glucose 98. He remains on IV diuretics, bronchodilators, prednisone. Antibiotics in the form of Zosyn. Heparin for DVT prophylaxis. Probable transfer to [facility] in a.m. On 12/04/2020 patient seen in follow-up. He is up in the recliner, he states he is feeling weak, but no complaints of acute respiratory distress, seems to be breathing fairly comfortably, he is on 2 L of oxygen the pulse ox of 96%, no fever or chills, no complaints of chest discomfort. He remains on a once daily dose of IV Lasix, and -3.9 L fluid balance over the last 24 hours, his last c hest x-ray was back on 11/30/2020 showing COPD with basilar infiltrates. No new labs today. She continues on empiric avascular form of Zosyn, he is also on Medrol Dosepak. Today discharge is pending for [facility] nursing and rehab Objective - Vital Signs Vital signs: Vital Signs Temp 97.9 F 12/04/20 08:00 Pulse 72 12/04/20 12:13 Resp 16 12/04/20 08:00 BP 111/41 12/04/20 08:00 Pulse Ox 96 12/04/20 08:00 Intake & Output 12/03/20 12/04/20 12/04/20 18:59 06:59 18:59 Intake Total 400 100 Output Total 3500 900 Balance -3100 -800 Intake: IV 100 Piperacillin-Tazobactam 3 100 .375 gm In Sodium Chloride 0.9% 100 ml @ 25 mls/hr IVPB Q8HR [facility] Rx# :[id number] Intake, IV Titration 200 Amount Piperacillin-Tazobactam 3 200 .375 gm In Sodium Chloride 0.9% 100 ml @ 25 mls/hr IVPB Q8HR [facility] Rx# :[id number] Oral 200 Output: Urine 3500 900 Other: Voiding Method External Catheter External Catheter - Exam GENERAL EXAM: Alert, very pleasant, 75-year-old white male, on 2 liters oxygen pulse ox 96%, sitting up in the recliner appears a bit weak, but appears to be in no respiratory distress, comfortable HEAD: Normocephalic/atraumatic. EYES: Normal reaction of pupils, equal size. Conjunctiva pink, sclera white. NOSE: Clear with pink turbinates. THROAT: No erythema or exudates. NECK: No masses, no JVD, no thyroid enlargement, no adenopathy. CHEST: No chest wall deformity. Symmetrical expansion. LUNGS: Equal air entry with no crackles, wheeze, rhonchi or dullness. CVS: Regular rate and rhythm, normal S1 and S2, no gallops, no murmurs, no rubs ABDOMEN: Soft, nontender. No hepatosplenomegaly, normal bowel sounds, no guarding or rigidity. EXTREMITIES: No clubbing, mild lower extremity edema no cyanosis, 2+ pulses and upper and lower extremities. MUSCULOSKELETAL: Muscle strength and tone normal. SPINE: No scoliosis or deformity SKIN: No rashes CENTRAL NERVOUS SYSTEM: Alert and oriented -3. No focal deficits, tone is normal in all 4 extremities. PSYCHIATRIC: Alert and oriented -3. Appropriate affect. Intact judgment and insight. - Labs CBC & Chem 7: 12/02/20 05:54 12/02/20 05:54 Labs: Abnormal Lab Results - Last 24 Hours (Table) 12/03/20 12/03/20 12/04/20 Range/Units 17:01 21:22 06:50 POC Glucose (mg/dL) 161 H 137 H 117 H (75-99) mg/dL 12/04/20 Range/Units 11:56 POC Glucose (mg/dL) 125 H (75-99) mg/dL Microbiology - Last 24 Hours (Table) 11/29/20 07:15 Blood Culture - Preliminary Blood No Growth after 120 hours 11/29/20 07:30 Blood Culture - Preliminary Blood No Growth after 120 hours Assessment and Plan Plan: Assessment: #1. Acute hypoxic respiratory failure possibly related to mild fluid overload, bibasilar atelectasis, and possibility of pneumonia is not entirely excluded. COVID-19 PCR test was negative. CTA chest showed no evidence of pulmonary embolism, although there is some poor filling of small segmental branches. Bilateral pleural effusions and associated atelectasis emphysema, and possible CHF were noted on CTA chest #2. Recent hospitalization from 11/20/2020 through 11/28/2020 for sepsis r elated to bilateral lower extremity cellulitis, acute urinary tract infection, and beta hemolytic strep group G bacteremia, patient was treated with Rocephin, and discharged to [facility] nursing and rehab on oral course of Keflex 500 mg every 6 hours for 10 days #3. History of multiple sclerosis, on Ocrevus #4. Chronic weakness in bilateral lower extremities related to history of multiple sclerosis #5. General medical debility, and patient is bedbound #6. Former history of smoking Plan: No acute events overnight Breathing comfortably Maintaining negative fluid balance Maintaining stable O2 saturations From pulmonary perspective stable for transfer to [facility] today Complete Medrol Dosepak, complete oral antibiotics I performed a history & physical examination of the patient and discussed their management with my nurse practitioner, Josie Bradshaw. I reviewed the nurse practitioner's note and agree with the documented findings and plan of care. Lung sounds are positive for diminished breath sounds. The findings and the impression was discussed with the patient. I attest to the documentation by the nurse practitioner. Time with Patient: Less than 30
--- NOTE | 2020-12-04 13:26 | P.DS ---
Providers Date of admission: 11/29/20 11:14 Expected date of discharge: 12/04/20 Attending physician: Antony Sharma Consults: 11/29/20 06:29 Consult Physician Routine Consulting Provider: Emery Nicholas Consult Reason/Comments: sob Do you want consulting provider notified?: Yes Consult Physician Routine Consulting Provider: Manpreet Berrios Consult Reason/Comments: MS Do you want consulting provider notified?: Yes Primary care physician: Shawn Galarza Hospital Course: Final diagnosis Shortness of breath possibly multifactorial, chronic obstructive pulmonary disease acute exacerbation with atelectasis as well as congestive heart failure acute exacerbation, acute on chronic diastolic dysfunction with an EF of 50-55% Possible acute purulent tracheobronchitis Possible aspiration pneumonia Increased WBC Hyponatremia next line anxiety state Acute respiratory alkalosis, present on admission History of recent multiple sclerosis in acute exacerbation History of recent bilateral leg cellulitis as well as sepsis and beta-hemolytic streptococcus group G Gait dysfunction Chronic left leg DVT history history of recent urinary tract infection remote history of nicotine dependence Elevated pro-calcitonin Full code Discharge disposition Patient is being discharged in a stable condition with guarded prognosis to [facility] for continued PT/OT therapy. Patient will follow-up with Dr. Mata/ [place] in the outpatient setting upon discharge. Patient will follow-up with primary care provider Dr. Whitney Galarza in the outpatient setting. Patient also to follow-up with pulmonary outpatient. Continue with Augmentin twice daily for the next 5 days and then may discontinue. Patient also to continue with breathing inhalational treatments along with prednisone taper upon discharge. Recommend repeat labs to monitor CBC along with BMP. Total time taken is greater than 35 minutes. Hospital course This is an 65-year-old male who was recently admitted with shortness of breath, possibly multifactorial and was being closely monitored. Patient being followed by pulmonary and will be following up outpatient. Patient is to continue with oral antibiotics in the form of Augmentin twice daily for the next 5 days along with a prednisone taper outpatient. Recommended repeat labs in a few days to monitor kidney functions and CBC. Continue continue with breathing inhalational treatments scheduled and as needed. Patient continues to be weak and was evaluated by PT/OT therapy recommending rehab for continued PT/OT therapy. Currently no reports of chest pain, worsening shortness of breath, or palpitations. Patient is afebrile. No reports of nausea or vomiting and patient is tolerating diet. Patient will be going to [facility] today. Guarded prognosis secondary to multiple readmissions for this. On exam vital signs are stable. Cardio S1, S2 are muffled. Respiratory system shows diminished breath sounds at the bases with no wheezing or rhonchi noted. Abdomen is soft and obese, and nontender. Nervous system shows diffuse weakness. Please refer to medication reconciliation sheet for a list of medications. Patient Condition at Discharge: Stable Plan - Discharge Summary Discharge Rx Participant: No New Discharge Prescriptions: New HYDROcodone/APAP 5-325MG [Pendleton 5-325] 1 each PO Q6HR PRN #6 tab PRN Reason: Pain Amoxic-Pot Clav 875-125Mg [Augmentin 875-125] 1 tab PO Q12HR 5 Days #10 tab Lactulose [Cephulac] 30 gm PO Q4HR ml methylPREDNISolone Dose Pack [Medrol Dose Pack] 16 mg PO DAILY tab Pyridoxine [Vitamin B-6] 50 mg PO DAILY tab Continue Oxybutynin Chloride [Ditropan XL] 5 mg PO DAILY@0800 Cholecalciferol (Vitamin D3) [Vitamin D3 (5000 Iu)] 125 mcg PO DAILY@1700 Aspirin EC [Ecotrin Low Dose] 81 mg PO DAILY@0800 Folic Acid 1 mg PO DAILY@1200 tab Cephalexin [Keflex] 500 mg PO Q6HR 10 Days #40 cap Acetaminophen Tab [Tylenol] 650 mg PO Q6HR PRN tab PRN Reason: Mild Pain Or Fever > 100.5 bisacodyL [Dulcolax] 10 mg RECTAL DAILY PRN PRN Reason: Constipation INSULIN ASPART (NovoLOG) [NovoLOG (formulary)] See Protocol SQ ACHS Magnesium Oxide [Mag-Ox] 400 mg PO DAILY@0800 Na Phos,M-B/Na Phos,Di-Ba [Fleet Adult] 133 ml RECTAL DAILY PRN PRN Reason: Constipation Sennosides [Senokot] 8.6 mg PO BID@0800,1700 Potassium Chloride ER [K-Dur 10] 10 meq PO DAILY@0800 Lubiprostone [Amitiza] 24 mcg PO BID@0800,1700 Baclofen 10 mg PO 5XD polyethylene glycoL 3350 [Miralax] 17 gm PO DAILY PRN powd.pack PRN Reason: Constipation Thiamine [Vitamin B-1] 100 mg PO DAILY@1200 tab Docusate [Colace] 100 mg PO BID@0800,1700 Famotidine [Pepcid] 20 mg PO BID@0800,2100 Ipratropium-Albuterol Nebulize [Duoneb 0.5 mg-3 mg/3 ml Soln] 3 ml INHALATION RT-TID PRN PRN Reason: Shortness Of Breath Ipratropium-Albuterol Nebulize [Duoneb 0.5 mg-3 mg/3 ml Soln] 3 ml INHALATION RT-TID Magnesium Hydroxide [Milk of Magnesia] 2,400 mg PO DAILY PRN PRN Reason: Constipation Nystatin 100,000 Unit/ml Susp [Mycostatin Oral Susp] 5 ml PO QID Pantoprazole [Protonix] 40 mg PO DAILY@0800 traMADol HCl [Ultram] 50 mg PO QID PRN #6 tab PRN Reason: Breakthrough Pain Changed Furosemide [Lasix] 40 mg PO DAILY@0800 #0 Discharge Medication List Aspirin EC [Ecotrin Low Dose] 81 mg PO DAILY@0800 11/20/20 [History] Baclofen 10 mg PO 5XD 11/20/20 [History] Cholecalciferol (Vitamin D3) [Vitamin D3 (5000 Iu)] 125 mcg PO DAILY@1700 11/20/20 [History] Lubiprostone [Amitiza] 24 mcg PO BID@0800,1700 11/20/20 [History] Oxybutynin Chloride [Ditropan XL] 5 mg PO DAILY@0800 11/20/20 [History] Potassium Chloride ER [K-Dur 10] 10 meq PO DAILY@0800 11/20/20 [History] Acetaminophen Tab [Tylenol] 650 mg PO Q6HR PRN tab 11/28/20 [Rx] Cephalexin [Keflex] 500 mg PO Q6HR 10 Days #40 cap 11/28/20 [Rx] Folic Acid 1 mg PO DAILY@1200 tab 11/28/20 [Rx] Thiamine [Vitamin B-1] 100 mg PO DAILY@1200 tab 11/28/20 [Rx] polyethylene glycoL 3350 [Miralax] 17 gm PO DAILY PRN powd.pack 11/28/20 [Rx] Docusate [Colace] 100 mg PO BID@0800,1700 11/29/20 [History] Famotidine [Pepcid] 20 mg PO BID@0800,2100 11/29/20 [History] INSULIN ASPART (NovoLOG) [NovoLOG (formulary)] See Protocol SQ ACHS 11/29/20 [History] Ipratropium-Albuterol Nebulize [Duoneb 0.5 mg-3 mg/3 ml Soln] 3 ml INHALATION RT-TID 11/29/20 [History] Ipratropium-Albuterol Nebulize [Duoneb 0.5 mg-3 mg/3 ml Soln] 3 ml INHALATION RT-TID PRN 11/29/20 [History] Magnesium Hydroxide [Milk of Magnesia] 2,400 mg PO DAILY PRN 11/29/20 [History] Magnesium Oxide [Mag-Ox] 400 mg PO DAILY@0800 11/29/20 [History] Na Phos,M-B/Na Phos,Di-Ba [Fleet Adult] 133 ml RECTAL DAILY PRN 11/29/20 [History] Nystatin 100,000 Unit/ml Susp [Mycostatin Oral Susp] 5 ml PO QID 11/29/20 [History] Pantoprazole [Protonix] 40 mg PO DAILY@0800 11/29/20 [History] Sennosides [Senokot] 8.6 mg PO BID@0800,1700 11/29/20 [History] bisacodyL [Dulcolax] 10 mg RECTAL DAILY PRN 11/29/20 [History] Amoxic-Pot Clav 875-125Mg [Augmentin 875-125] 1 tab PO Q12HR 5 Days #10 tab 12/04/20 [Rx] Furosemide [Lasix] 40 mg PO DAILY@0800 #0 12/04/20 [Rx] HYDROcodone/APAP 5-325MG [Pendleton 5-325] 1 each PO Q6HR PRN #6 tab 12/04/20 [Rx] Lactulose [Cephulac] 30 gm PO Q4HR ml 12/04/20 [Rx] Pyridoxine [Vitamin B-6] 50 mg PO DAILY tab 12/04/20 [Rx] methylPREDNISolone Dose Pack [Medrol Dose Pack] 16 mg PO DAILY tab 12/04/20 [Rx] traMADol HCl [Ultram] 50 mg PO QID PRN #6 tab 12/04/20 [Rx] Follow up Appointment(s)/Referral(s): [facility], [NON-STAFF] - As Needed Shawn Galarza DO [Primary Care Provider] - 12/06/20 8:15 am Activity/Diet/Wound Care/Special Instructions: Patient is going to [facility] Activity as tolerated Continue regular diet Continue with antibiotics for the next 5 days and then may discontinue Continue with Medrol Dosepak until finished Continue with bronchodilators Follow-up with primary care provider outpatient Follow-up with pulmonary outpatient Discharge Disposition: TRANSFER TO SNF/F
[2020-12-04 15:09] VITALS: BP 129/86; PULSE 78; RESP 19; TEMP 97.7
== END 2020-12-04 15:14 | DRG 177 ==
LOC: EC 05:32 → 5NMEDONC 06:29 → OBSVTOIN 11:14 → 4SSUR 13:54
PROVIDERS: ADMIT Hospitalist; ATTEND Hospitalist
PROC: 5A09357 Assistance with Respiratory Ventilation, Less than 24 Consecutive Hours, Continuous Positive Airway Pressure (ICD-10-PCS; principal; 2020-11-29)
DX: J69.0 Pneumonitis due to inhalation of food and vomit (principal); I50.33 Acute on chronic diastolic (congestive) heart failure; J96.01 Acute respiratory failure with hypoxia; E87.3 Alkalosis; E87.1 Hypo-osmolality and hyponatremia; I82.502 Chronic embolism and thrombosis of unspecified deep veins of left lower extremity; G82.20 Paraplegia, unspecified; J98.11 Atelectasis; J43.9 Emphysema, unspecified; G35 Multiple sclerosis; Z79.4 Long term (current) use of insulin; Z20.822 Contact with and (suspected) exposure to COVID-19; F41.9 Anxiety disorder, unspecified; J20.9 Acute bronchitis, unspecified; H91.90 Unspecified hearing loss, unspecified ear; H54.7 Unspecified visual loss; K59.00 Constipation, unspecified; D64.9 Anemia, unspecified; M50.30 Other cervical disc degeneration, unspecified cervical region; E66.9 Obesity, unspecified; Z68.26 Body mass index [BMI] 26.0-26.9, adult; Z79.82 Long term (current) use of aspirin; Z79.899 Other long term (current) drug therapy; Z86.19 Personal history of other infectious and parasitic diseases; Z87.891 Personal history of nicotine dependence; Z74.01 Bed confinement status; Z87.442 Personal history of urinary calculi; Z87.440 Personal history of urinary (tract) infections
CPT/HCPCS: 36415; 36600; 71045; 71275; 80048; 80053; 81003; 82306; 82607; 82746; 82805; 83036; 83735; 83880; 83921; 84145; 84207; 84443; 84484; 85025; 85610; 85730; 86780; 87040; 87635; 93005; 93306; 94640; 94660; 94760; 96360; 99291

== ENCOUNTER → 2022-12-11 | Outpatient (CLI) | payer MEDICARE, BC ==
[2022-12-11 17:56] LABS: Appearance,Urine Clear (Clear); Bilirubin,Urine Negative (Negative); Blood,Urine Negative (Negative); Color,Urine Colorless; Glucose,Urine (UA) Negative (Negative); Ketones,Urine Negative (Negative); Leukocyte Esterase,Urine Negative (Negative); Nitrite,Urine Negative (Negative); Protein,Urine Negative (Negative); Specific Gravity,Urine 1.002 (1.001-1.035); Urobilinogen,Urine <2.0 mg/dL (<2.0)
[2022-12-12 02:32] LABS: ALT 23 U/L (10-49); AST 25 U/L (14-35); Albumin 4.6 d/dL (3.8-4.9); Albumin/Globulin Ratio 1.84 Ratio (1.60-3.17); Alkaline Phosphatase 92 U/L (41-126); Blood Urea Nitrogen 17.1 mg/dL (9.0-27.0); Calcium 9.8 mg/dL (8.7-10.3); Carbon Dioxide 26.9 mmol/L (21.6-31.8); Chloride 101 mmol/L (96-109); Globulin 2.5 d/dL (1.6-3.3); Glucose 79 mg/dL (70-110); Potassium 4.4 mmol/L (3.5-5.5); Sodium 140 mmol/L (135-145); Total Bilirubin 0.3 mg/dL (0.3-1.2); Total Protein 7.1 d/dL (6.2-8.2)
[2022-12-12 03:17] LABS: Basophils # (A) 0.05 X 10*3/uL (0.00-0.10); Basophils % (A) 0.7 %; Eosinophils % (A) 8.5 %; HCT 43.8 % (39.6-50.0); Lymphocytes # (A) 1.05 X 10*3/uL (0.90-5.00); Lymphocytes % (A) 14.9 %; Mean Platelet Volume 11.4 FL (9.5-12.2); Monocytes # (A) 0.93 X 10*3/uL (0.20-1.00); Monocytes % (A) 13.2 %; NRBC Per 100 WBC 0 X 10*3/uL (0.00-0.01); Neutrophils # (A) 4.38 X 10*3/uL (1.80-7.70); Neutrophils % (A) 62.4 %; Platelet Count 216 X 10*3/uL (140-440); RBC 4.66 X 10*6/uL (4.40-5.60); RDW 13.4 % (11.5-14.5); WBC 7.03 X 10*3/uL (4.50-10.00)
--- NOTE | 2022-12-12 07:33 | US ---
EXAMINATION TYPE: US kidneys/renal and bladder DATE OF EXAM: 12/11/2022 COMPARISON: CLINICAL INDICATION: Male, 67 years old with history of N32.81 OVERACTIVE BLADDER,N39.41URGE INCONTIN ENCE; Patient states he has constant urges to go to the bathroom. I asked patient after the exam if he could void and he said no. Patient scanned in his ami motorized chair. EXAM MEASUREMENTS: Right Kidney: 9.2 x 4.8 x 4.5 cm Left Kidney: 11.3 x 5.3 x 5.9 cm Right Kidney: Upper lateral hypoechoic lesion = 1.9 x 1.7 x 1.6 cm Left Kidney: No hydronephrosis or masses seen Bladder: Distended, anechoic Bilateral Jets not seen There is no evidence for hydronephrosis at this point in time. No nephrolithiasis is seen. No solid masses are identified. The urinary bladder is anechoic. Bilateral ureteral jets are seen. IMPRESSION: Cystic lesion upper pole right kidney. Otherwise unremarkable study.
== END | disposition home or self-care (01) ==
LOC: RADUSWWP 16:10
PROVIDERS: ATTEND Urology
DX: N32.81 Overactive bladder (principal); N39.41 Urge incontinence; N28.89 Other specified disorders of kidney and ureter
CPT/HCPCS: 76770; 80053; 81003; 82607; 82784; 84443; 85025

== ENCOUNTER → 2023-10-10 | Outpatient (CLI) | payer MEDICARE, BC ==
--- NOTE | 2023-10-10 13:08 | US ---
EXAMINATION TYPE: US venous doppler duplex LE BI DATE OF EXAM: 10/10/2023 12:51 PM COMPARISON: 11/24/2020 CLINICAL INDICATION: Male, 68 years old with history of R60.0 LOCALIZED EDEMA; Leg swelling. Patient takes aspirin and has no hx of a blood clot. Patient unable to move from wheelchair. Patient scanned in chair. SIDE PERFORMED: Bilateral TECHNIQUE: The lower extremity deep venous system is examined utilizing real time linear array sonog frankie with graded compression, doppler sonography and color-flow sonography. VESSELS IMAGED: Common Femoral Vein Deep Femoral Vein Greater Saphenous Vein * Femoral Vein Popliteal Vein Small Saphenous Vein * Proximal Calf Veins (* superficial vessels) Slight limitations due to patient having to be scanned in wheelchair. Right Leg: Negative for DVT Left Leg: Negative for DVT IMPRESSION: Grayscale, color doppler, spectral doppler imaging performed of the deep veins of the lo wer extremities. There is normal flow, compressibility, vascular waveforms.
== END | disposition home or self-care (01) ==
LOC: RADUSWWP 11:59
PROVIDERS: ATTEND Family Medicine
DX: R60.0 Localized edema (principal)
CPT/HCPCS: 93970

== ENCOUNTER 2023-11-01 14:45 | Emergency (ER) | payer MEDICARE, BC ==
--- NOTE | 2023-11-01 15:44 | ED ---
Recheck HPI - General Chief Complaint: Recheck/Abnormal Lab/Rx Stated Complaint: needs lab draw, sent by home health nurse Time Seen by Provider: 11/01/23 15:42 Source: patient, RN notes reviewed Mode of arrival: ambulatory Limitations: physical limitation - History of Present Illness Initial Comments: This is a 68-year-old male who presents to the emergency department for hypokalemia. Patient had been feeling very weak and had blood work drawn demons trating low potassium. His visiting home nurse was going to redraw the blood work but was unable to do so and he was sent to the emergency department for a repeat potassium draw. Patient is unsure what his potassium level was. States that he does not want to be evaluated or treated. He would just like to have his blood work drawn and be discharged home. Denies any chest pain or shortness of breath. MD Complaint: abnormal lab - Related Data Home Medications Medication Instructions Recorded Confirmed Aspirin EC [Ecotrin Low Dose] 81 mg PO DAILY@0800 11/20/20 11/29/20 Baclofen 10 mg PO 5XD 11/20/20 11/29/20 Cholecalciferol (Vitamin D3) 125 mcg PO DAILY@1700 11/20/20 11/29/20 [Vitamin D3 (5000 Iu)] Lubiprostone [Amitiza] 24 mcg PO BID@0800,1700 11/20/20 11/29/20 Potassium Chloride ER [K-Dur 10] 10 meq PO DAILY@0800 11/20/20 11/29/20 oxyBUTYnin chloride [Ditropan XL] 5 mg PO DAILY@0800 11/20/20 11/29/20 Docusate [Colace] 100 mg PO BID@0800,1700 11/29/20 11/29/20 Famotidine [Pepcid] 20 mg PO BID@0800,2100 11/29/20 11/29/20 INSULIN ASPART (NovoLOG) [NovoLOG See Protocol SQ ACHS 11/29/20 11/29/20 (formulary)] Ipratropium-Albuterol Nebulize 3 ml INHALATION RT-TID 11/29/20 11/29/20 [Duoneb 0.5 mg-3 mg/3 ml Soln] Ipratropium-Albuterol Nebulize 3 ml INHALATION RT-TID PRN 11/29/20 11/29/20 [Duoneb 0.5 mg-3 mg/3 ml Soln] Magnesium Hydroxide [Milk of 2,400 mg PO DAILY PRN 11/29/20 11/29/20 Magnesia] Magnesium Oxide [Mag-Ox] 400 mg PO DAILY@0800 11/29/20 11/29/20 Na Phos,M-B/Na Phos,Di-Ba [Fleet 133 ml RECTAL DAILY PRN 11/29/20 11/29/20 Adult] Nystatin 100,000 Unit/ml Susp 5 ml PO QID 11/29/20 11/29/20 [Mycostatin Oral Susp] Pantoprazole [Protonix] 40 mg PO DAILY@0800 11/29/20 11/29/20 Sennosides [Senokot] 8.6 mg PO BID@0800,1700 11/29/20 11/29/20 bisacodyL [Dulcolax] 10 mg RECTAL DAILY PRN 11/29/20 11/29/20 Previous Rx's Medication Instructions Recorded Acetaminophen Tab [Tylenol] 650 mg PO Q6HR PRN tab 11/28/20 Folic Acid 1 mg PO DAILY@1200 tab 11/28/20 Thiamine [Vitamin B-1] 100 mg PO DAILY@1200 tab 11/28/20 polyethylene glycoL 3350 [Miralax] 17 gm PO DAILY PRN powd.pack 11/28/20 Amoxic-Pot Clav 875-125Mg 1 tab PO Q12HR 5 Days #10 tab 12/04/20 [Augmentin 875-125] Furosemide [Lasix] 40 mg PO DAILY@0800 #0 12/04/20 HYDROcodone/APAP 5-325MG [Hewitt 1 each PO Q6HR PRN #6 tab 12/04/20 5-325] Lactulose [Cephulac] 30 gm PO Q4HR ml 12/04/20 Multivitamins, Thera [Multivitamin] 1 tab PO DAILY #30 tablet 12/04/20 Pyridoxine [Vitamin B-6] 50 mg PO DAILY tab 12/04/20 methylPREDNISolone Dose Pack 16 mg PO DAILY tab 12/04/20 [Medrol Dose Pack] traMADol HCl [Ultram] 50 mg PO QID PRN #6 tab 12/04/20 Allergies Allergy/AdvReac Type Severity Reaction Status Date / Time No Known Allergies Allergy Verified 11/29/20 08:51 Review of Systems ROS Statement: Those systems with pertinent positive or pertinent negative responses have been documented in the HPI. ROS Other: All systems not noted in ROS Statement are negative. Past Medical History Past Medical History: Musculoskeletal Disorder Additional Past Medical History / Comment(s): MS 2012 dx, urinary retention History of Any Multi-Drug Resistant Organisms: None Reported Past Surgical History: No Surgical Hx Reported Additional Past Surgical History / Comment(s): Pt states he has never had surgery. Past Anesthesia/Blood Transfusion Reactions: No Reported Reaction Additional Past Anesthesia/Blood Transfusion Reaction / Comment(s): Pt has clausterphobia. Past Psychological History: No Psychological Hx Reported Smoking Status: Former smoker Past Alcohol Use History: Occasional Past Drug Use History: None Reported - Past Family History Mother Family Medical History: No Reported History Additional Family Medical History / Comment(s): Mother is healthy and 86yrs old. Father Family Medical History: No Reported History Additional Family Medical History / Comment(s): Father is 90 yrs old. General Exam Limitations: physical limitation General appearance: alert, in no apparent distress Head exam: Present: atraumatic, normocephalic, normal inspection Respiratory exam: Present: normal lung sounds bilaterally. Absent: respiratory distress, wheezes, rales, rhonchi, stridor Cardiovascular Exam: Present: regular rate, normal rhythm, normal heart sounds. Absent: systolic murmur, diastolic murmur, rubs, gallop, clicks Neurological exam: Present: alert, oriented X3, CN II-XII intact Psychiatric exam: Present: normal affect, normal mood Skin exam: Present: warm, dry, intact, normal color. Absent: rash Course Vital Signs 11/01/23 15:22 Temperature 97.8 F Pulse Rate 70 Respiratory 16 Rate Blood Pressure 110/76 O2 Sat by Pulse 96 Oximetry Medical Decision Making - Medical Decision Making This is a 68 year old male who presents to the emergency department for hypokalemia. Was pt. sent in by a medical professional or institution? @ -His home nurse Did you speak to anyone other than the patient for history? @ -No Did you review nursing and triage notes? @ -Yes, and I agree, it is accurate with regards to the patient's symptoms. Were old charts reviewed? @ -No Differential Diagnosis? @ -Differential Hypokalemia: Medications, kidney disease, diabetes, dietary intake, diarrhea, this is not meant to be an all-inclusive list. EKG interpreted by me (3pts min.)? @ -Not obtained X-rays interpreted by me (1pt min.)? @ -Not obtained CT interpreted by me (1pt min.)? @ -Not obtained U/S interpreted by me (1pt. min.)? @ -Not obtained What testing was considered but not performed? (CT, X-rays, U/S, labs)? Why? @ -EKG, however patient refused and only wanted a repeat blood draw. What meds were considered but not given? Why? @ -K-dur, however patient declined treatment in the emergency department. Did you discuss the management of the patient with other professionals? @ -No Did you reconcile home meds? @ -No Was smoking cessation discussed for >3mins.? @ -No Was critical care preformed (if so, how long)? @ -No Were there social determinants of health that impacted care today? How? (Homelessness, low income, unemployed, alcoholism, drug addiction, transportation, low edu. Level, literacy, decrease access to med. care, fdc, rehab)? @ -No Was there de-escalation of care discussed even if they declined? (Discuss DNR or withdrawal of care, Hospice)? @ -No What co-morbidities impacted this encounter? (DM, HTN, Smoking, COPD, CAD, Cancer, CVA, Hep., AIDS, mental health diagnosis, sleep apnea, morbid obesity)? @ -Musculoskeletal disorder Was patient admitted / discharged? @ -Lab work demonstrates hypokalemia with a potassium of 3.0. Discussed with the patient further workup with regards to the weakness such as a urinalysis as well as an EKG given the low potassium. Patient refused and states that he only wanted to have his blood work drawn here as requested by his home health nurse and then be discharged home. He did not want any additional evaluation or treatment. I was also going to give him a tablet of k-dur for the hypokalemia and we discussed a prescription, however patient refused that as well. He was alert and oriented x 4 and had full decision-making capacity and had the right to decline this. He also understood all of the risks associated with the hypokalemia and declining treatment and further evaluation. Advised close follow-up with his primary care provider. Undiagnosed new problem with uncertain prognosis? @ -None Drug Therapy requiring intensive monitoring for toxicity (Heparin, Nitro, Insulin, Cardizem)? @ -None Were any procedures done? @ -None Diagnosis/symptom? @ -Hypokalemia Acute, or Chronic, or Acute on Chronic? @ -Acute Uncomplicated (without systemic symptoms) or Complicated (systemic symptoms)? @ -Uncomplicated Side effects of treatment? @ -None Exacerbation, Progression, or Severe Exacerbation] @ -Not applicable Poses a threat to life or bodily function? @ -This will depend on how the potassium level changes. Return precautions reviewed in depth, the patient is instructed to return to the emergency department with any new, worsening, or concerning symptoms. Patient verbalized understanding. This case was discussed in detail with the attending ED physician, Dr. Malloy. Presentation, findings, and treatment plan discussed in detail as well. - Lab Data Result diagrams: 11/01/23 15:50 Lab Results 11/01/23 Range/Units 15:50 Sodium 140 (137-145) mmol/L Potassium 3.0 L (3.5-5.1) mmol/L Chloride 89 L (98-107) mmol/L Carbon Dioxide 40 H (22-30) mmol/L Anion Gap 11 mmol/L BUN 64 H (9-20) mg/dL Creatinine 1.09 (0.66-1.25) mg/dL Est GFR (CKD-EPI)AfAm 81 (>60 ml/min/1.73 sqM) Est GFR (CKD-EPI)NonAf 70 (>60 ml/min/1.73 sqM) Glucose 98 (74-99) mg/dL Calcium 10.5 H (8.4-10.2) mg/dL Total Bilirubin 0.7 (0.2-1.3) mg/dL AST 32 (17-59) U/L ALT 28 (4-49) U/L Alkaline Phosphatase 119 (38-126) U/L Total Protein 8.7 H (6.3-8.2) g/dL Albumin 4.8 (3.5-5.0) g/dL Disposition Clinical Impression: Hypokalemia Disposition: HOME SELF-CARE Instructions (If sedation given, give patient instructions): Hypokalemia (ED) Additional Instructions: Return to the emergency department with any new, worsening, or concerning symptoms. Follow up with your primary care provider in 1-2 days. Is patient prescribed a controlled substance at d/c from ED?: No Referrals: Shawn Galarza DO [Primary Care Provider] - 1-2 days Time of Disposition: 16:02
[2023-11-01 15:46] VITALS: BP 110/76; PULSE 70; RESP 16; TEMP 97.8
[2023-11-01 16:12] LABS: ALT 28 U/L (4-49); AST 32 U/L (17-59); African American GFR (CKD) 81 (>60 ml/min/1.73 sqM); Albumin 4.8 g/dL (3.5-5.0); Alkaline Phosphatase 119 U/L (38-126); Anion Gap 11 mmol/L; Blood Urea Nitrogen 64 mg/dL (9-20); Calcium 10.5 mg/dL (8.4-10.2); Carbon Dioxide 40 mmol/L (22-30); Chloride 89 mmol/L (98-107); Glucose 98 mg/dL (74-99); Non-African American GFR(CKD) 70 (>60 ml/min/1.73 sqM); Sodium 140 mmol/L (137-145); Total Bilirubin 0.7 mg/dL (0.2-1.3); Total Protein 8.7 g/dL (6.3-8.2)
[2023-11-01] MEDS ORDERED: POTASSIUM CHLORIDE ER 20 MEQ TAB.ER PO STA (16:20)
== END 2023-11-01 17:08 | disposition home or self-care (01) ==
LOC: EC 14:45
DX: E87.6 Hypokalemia (principal); Z87.891 Personal history of nicotine dependence
CPT/HCPCS: 36415; 80053; 99283

== ENCOUNTER 2024-10-15 17:03 | Observation (INO) | payer MEDICARE, BC ==
--- NOTE | 2024-10-15 17:29 | ED ---
Recheck HPI - General Source: patient, RN notes reviewed Mode of arrival: wheelchair Limitations: physical limitation <Sherin Garcia - Last Filed: 10/15/24 19:05> <Seferino Johnson - Last Filed: 10/18/24 04:18> - General Chief Complaint: Recheck/Abnormal Lab/Rx Stated Complaint: Abnormal Labs Time Seen by Provider: 10/15/24 17:29 - History of Present Illness Initial Comments: 69-year-old male sent by Dr. Galarza for hypokalemia. Patient states he has been feeling weak and tired for the past few weeks. He has a home nurse who performs lab draws and checks his indwelling Yeager catheter that he has in place due to immobility due to MS. Potassium on last lab draw was 2.3. He has struggled with hypokalemia in the past however has never been this low. He takes 60 mg Lasix in the morning for leg swelling that his PCP believes is due to his immobility. He does take potassium supplements at home. Patient is wheelchair-bound. Patient denies chest pain, shortness of breath, fever, chills, nausea, vomiting, diarrhea. Denies blood thinners. (Sherin Garcia) - Related Data Home Medications Medication Instructions Recorded Confirmed Potassium Chloride ER [K-Dur 10] 20 meq PO BID 11/20/20 10/15/24 Sennosides [Senokot] 8.6 mg PO DAILY PRN 11/29/20 10/15/24 Alendronate Sodium [Fosamax] 70 mg PO ALAMO 10/15/24 10/15/24 Baclofen [Lioresal] 20 mg PO QID 10/15/24 10/15/24 Laxative Gummy 1 tab PO QID PRN 10/15/24 10/15/24 Magnesium 250 mg PO DAILY 10/15/24 10/15/24 Potassium Chloride ER [K-Dur 10] 10 meq PO DAILY PRN 10/15/24 10/15/24 Sertraline [Zoloft] 200 mg PO DAILY 10/15/24 10/15/24 Vitamin E (Dl,Tocopheryl Acet) 400 unit PO DAILY 10/15/24 10/15/24 [Vitamin E (400 Iu = 180 mg)] diazePAM [Valium] 2 mg PO TID PRN 10/15/24 10/15/24 polyethylene glycoL 3350 [Miralax] 17 gm PO DAILY 10/15/24 10/15/24 Previous Rx's Medication Instructions Recorded Furosemide [Lasix] 2 tab PO DAILY #60 10/17/24 Spironolactone [Aldactone] 25 mg PO DAILY #30 tab 10/17/24 Allergies Allergy/AdvReac Type Severity Reaction Status Date / Time No Known Allergies Allergy Verified 10/15/24 19:05 Review of Systems ROS Other: All systems not noted in ROS Statement are negative. <Sherin Garcia - Last Filed: 10/15/24 19:05> ROS Other: All systems not noted in ROS Statement are negative. <Seferino Johnson - Last Filed: 10/18/24 04:18> ROS Statement: Those systems with pertinent positive or pertinent negative responses have been documented in the HPI. Past Medical History Past Medical History: Musculoskeletal Disorder Additional Past Medical History / Comment(s): MS 2012 dx, urinary retention History of Any Multi-Drug Resistant Organisms: None Reported Past Surgical History: No Surgical Hx Reported Additional Past Surgical History / Comment(s): Pt states he has never had surgery. Past Anesthesia/Blood Transfusion Reactions: No Reported Reaction Additional Past Anesthesia/Blood Transfusion Reaction / Comment(s): Pt has clausterphobia. Past Psychological History: No Psychological Hx Reported Smoking Status: Former smoker Past Alcohol Use History: Occasional Past Drug Use History: None Reported - Past Family History Mother Family Medical History: No Reported History Additional Family Medical History / Comment(s): Mother is healthy and 86yrs old. Father Family Medical History: No Reported History Additional Family Medical History / Comment(s): Father is 90 yrs old. <Sherin Garcia - Last Filed: 10/15/24 19:05> General Exam Limitations: physical limitation General appearance: alert, in no apparent distress Head exam: Present: atraumatic, normocephalic, normal inspection Eye exam: Present: normal appearance, PERRL, EOMI. Absent: scleral icterus, conjunctival injection, periorbital swelling Respiratory exam: Present: normal lung sounds bilaterally. Absent: respiratory distress, wheezes, rales, rhonchi, stridor Cardiovascular Exam: Present: regular rate, normal rhythm, normal heart sounds. Absent: systolic murmur, diastolic murmur, rubs, gallop, clicks Extremities exam: Present: normal inspection, full ROM, normal capillary refill. Absent: tenderness, pedal edema, joint swelling, calf tenderness Neurological exam: Present: alert, oriented X3 Psychiatric exam: Present: normal affect, normal mood Skin exam: Present: warm, dry, intact, normal color. Absent: rash <Sherin Garcia - Last Filed: 10/15/24 19:05> Course Vital Signs 10/15/24 10/15/24 10/15/24 17:09 19:13 19:49 Temperature 97.8 F 98.5 F Pulse Rate 67 63 64 Respiratory 18 18 17 Rate Blood Pressure 124/83 119/79 117/77 O2 Sat by Pulse 97 97 98 Oximetry Medical Decision Making - Lab Data Result diagrams: 10/15/24 17:27 10/15/24 17:27 - EKG Data -: EKG Interpreted by Me <Sherin Garcia - Last Filed: 10/15/24 19:05> - Lab Data Result diagrams: 10/15/24 17:27 10/17/24 04:14 <Seferino Johnson - Last Filed: 10/18/24 04:18> - Medical Decision Making Was pt. sent in by a medical professional or institution (, PA, SHOW OPERATIONS SUPERVISOR, urgent care, hospital, or halfway...) When possible be specific @ -Sent by Dr. Galarza for hypokalemia Did you speak to anyone other than the patient for history (EMS, parent, family, police, friend...)? What history was obtained from this source @ -Patient's supplemented history Did you review nursing and triage notes (agree or disagree)? Why? @ -I reviewed and agree with nursing and triage notes Were old charts reviewed (outside hosp., previous admission, EMS record, old EKG, old radiological studies, urgent care reports/EKG's, halfway records)? Report findings @ -No old charts were reviewed Differential Diagnosis (chest pain, altered mental status, abdominal pain women, abdominal pain men, vaginal bleeding, weakness, fever, dyspnea, syncope, headache, dizziness, GI bleed, back pain, seizure, CVA, palpatations, mental health, musculoskeletal)? @ -Not applicable EKG interpreted by me (3pts min.). @ -As above X-rays interpreted by me (1pt min.). @ -None done CT interpreted by me (1pt min.). @ -None done U/S interpreted by me (1pt. min.). @ -None done What testing was considered but not performed or refused? (CT, X-rays, U/S, labs)? Why? @ -None What meds were considered but not given or refused? Why? @ -None Did you discuss the management of the patient with other professionals (professionals i.e. Dr., PA, SHOW OPERATIONS SUPERVISOR, lab, RT, psych nurse, foster care social worker, campus interviews intern, teacher, asset protection officer, correctional case records supervisor)? Give summary @ -I spoke with Arleen from [facility] who accepts admission for hypokalemia Was smoking cessation discussed for >3mins.? @ -No Was critical care preformed (if so, how long)? @ -No Were there social determinants of health that impacted care today? How? (Homelessness, low income, unemployed, alcoholism, drug addiction, transportation, low edu. Level, literacy, decrease access to med. care, ch[facility], rehab)? @ -No Was there de-escalation of care discussed even if they declined (Discuss DNR or withdrawal of care, Hospice)? DNR status @ -No What co-morbidities impacted this encounter? (DM, HTN, Smoking, COPD, CAD, Cancer, CVA, ARF, Chemo, Hep., AIDS, mental health diagnosis, sleep apnea, morbid obesity)? @ -None Was patient admitted / discharged? Hospital course, mention meds given and route, prescriptions, significant lab abnormalities, going to OR and other pertinent info. @ - admitted. 69-year-old male presenting for hypokalemia. Patient has history of MS and takes Lasix for leg swelling. Patient does endorse weakness and fatigue over the past couple weeks. Potassium was found to be 2.3 on lab draw by home nurse. Vital signs within acceptable limits. EKG reveals no acute ST segment changes. Lab work reveals hypokalemia of 2.5, hyponatremia 129. Patient will be admitted to medicine for hypokalemia. Patient was started on oral and IV potassium replacement. Recommended holding Lasix for the next 24 hours. Case was discussed with my ED attending Dr. Johnson Undiagnosed new problem with uncertain prognosis? @ -No Drug Therapy requiring intensive monitoring for toxicity (Heparin, Nitro, Insulin, Cardizem)? @ -No Were any procedures done? @ -No Diagnosis/symptom? @ -Hypokalemia Acute, or Chronic, or Acute on Chronic? @ -Acute Uncomplicated (without systemic symptoms) or Complicated (systemic symptoms)? @ -Uncomplicated Side effects of treatment? @ -No Exacerbation, Progression, or Severe Exacerbation? @ -No Poses a threat to life or bodily function? How? (Chest pain, USA, DE, pneumonia, PE, COPD, DKA, ARF, appy, cholecystitis, CVA, Diverticulitis, Homicidal, Suicidal, threat to staff... and all critical care pts) @ -Yes (Sherin Garcia) - Lab Data Lab Results 10/15/24 10/15/24 Range/Units 17:27 17:27 WBC 10.77 H (4.50-10.00) 10*3/uL RBC 4.49 (4.40-5.60) 10*6/uL Hgb 13.9 (13.0-17.0) g/dL Hct 39.7 (39.6-50.0) % MCV 88.4 (80.0-97.0) fL MCH 31.0 (27.0-32.0) pg MCHC 35.0 (32.0-37.0) g/dL Plt Count 228 (140-440) 10*3/uL MPV 9.7 (9.5-12.2) fL Immature Gran % (Auto) 0.6 % Neutrophils % 73.4 % Lymphocytes % 12.1 % Monocytes % 11.7 % Eosinophils % 1.8 % Basophils % 0.4 % Immature Gran # 0.07 H (0.00-0.04) 10*3/uL Neutrophils # 7.91 H (1.80-7.70) 10*3/uL Lymphocytes # 1.30 (0.90-5.00) 10*3/uL Monocytes # 1.26 H (0.20-1.00) 10*3/uL Eosinophils # 0.19 (0.04-0.35) 10*3/uL Basophils # 0.04 (0.00-0.10) 10*3/uL Sodium 129 L (137-145) mmol/L Potassium 2.5 L* (3.5-5.1) mmol/L Chloride 85 L (98-107) mmol/L Carbon Dioxide 31 H (22-30) mmol/L Anion Gap 13 mmol/L BUN 20 (9-20) mg/dL Creatinine 0.80 (0.66-1.25) mg/dL Est GFR (CKD-EPI)AfAm >90 (>60 ml/min/1.73 sqM) Est GFR (CKD-EPI)NonAf >90 (>60 ml/min/1.73 sqM) Glucose 109 H (74-99) mg/dL Calcium 9.8 (8.4-10.2) mg/dL Magnesium 2.1 (1.6-2.3) mg/dL Total Bilirubin 0.7 (0.2-1.3) mg/dL AST 30 (17-59) U/L ALT 20 (4-49) U/L Alkaline Phosphatase 109 (38-126) U/L Total Protein 7.7 (6.3-8.2) g/dL Albumin 4.5 (3.5-5.0) g/dL - EKG Data EKG Comments: EKG reveals normal sinus rhythm with no acute ST changes. Ventricular rate 65 bpm, IA interval 165, QRS duration 114, QT/QTc 442/453 (Sherin Garcia) Disposition Time of Disposition: 19:09 <Sherin Garcia - Last Filed: 10/15/24 19:05> <Seferino Johnson - Last Filed: 10/18/24 04:18> Clinical Impression: Hypokalemia Disposition: ADMITTED IP TO THIS HOSP Condition: Stable
[2024-10-15 17:33] LABS: Basophils # (A) 0.04 10*3/uL (0.00-0.10); Basophils % (A) 0.4 %; Eosinophils # (A) 0.19 10*3/uL (0.04-0.35); Eosinophils % (A) 1.8 %; HCT 39.7 % (39.6-50.0); HGB 13.9 g/dL (13.0-17.0); Lymphocytes % (A) 12.1 %; MCV 88.4 fL (80.0-97.0); Mean Platelet Volume 9.7 fL (9.5-12.2); Monocytes # (A) 1.26 10*3/uL (0.20-1.00); Monocytes % (A) 11.7 %; Neutrophils # (A) 7.91 10*3/uL (1.80-7.70); Neutrophils % (A) 73.4 %; Platelet Count 228 10*3/uL (140-440); RBC 4.49 10*6/uL (4.40-5.60); RDW 13.8 % (11.5-14.5); WBC 10.77 10*3/uL (4.50-10.00)
[2024-10-15 17:46] LABS: ALT 20 U/L (4-49); AST 30 U/L (17-59); African American GFR (CKD) >90 (>60 ml/min/1.73 sqM); Albumin 4.5 g/dL (3.5-5.0); Alkaline Phosphatase 109 U/L (38-126); Anion Gap 13 mmol/L; Blood Urea Nitrogen 20 mg/dL (9-20); Calcium 9.8 mg/dL (8.4-10.2); Carbon Dioxide 31 mmol/L (22-30); Chloride 85 mmol/L (98-107); Glucose 109 mg/dL (74-99); Magnesium 2.1 mg/dL (1.6-2.3); Non-African American GFR(CKD) >90 (>60 ml/min/1.73 sqM); Sodium 129 mmol/L (137-145); Total Bilirubin 0.7 mg/dL (0.2-1.3); Total Protein 7.7 g/dL (6.3-8.2)
[2024-10-15 17:51] LABS: Potassium 2.5 mmol/L (3.5-5.1)
[2024-10-15] MEDS ORDERED: HYDROmorphone 2 MG/ML 1 ML SYRINGE IVP PRN (19:05)
[2024-10-15] MEDS ORDERED: HYDROmorphone 0.5 MG/0.5 ML SYRINGE IVP PRN (19:05)
[2024-10-15] MEDS ORDERED: ONDANSETRON 4 MG/2 ML VIAL IVP PRN (19:05)
[2024-10-15] MEDS ORDERED: NALOXONE 0.4 MG/ML 1 ML VIAL IV PRN (19:05)
[2024-10-15] MEDS ORDERED: ACETAMINOPHEN TAB 325 MG TAB PO PRN (19:05)
[2024-10-15] MEDS ORDERED: Potassium Replacement Protocol 1 EACH MISC MISCELLANE PRN (19:06)
[2024-10-15] MEDS: POTASSIUM CHLORIDE ER 20 MEQ TAB.ER PO ONE (19:46)
[2024-10-15] MEDS: POTASSIUM CHLORIDE 10 MEQ in WATER FOR INJECTION 1 100ML.BAG IVPB SCH (19:48)
[2024-10-15] MEDS ORDERED: SENNOSIDES 8.6 MG TAB PO PRN (21:51)
[2024-10-15] MEDS ORDERED: metOLazone 5 MG TAB PO PRN (21:51)
[2024-10-15] MEDS: BACLOFEN 10 MG TAB PO SCH (22:26)
[2024-10-15] MEDS: SODIUM CHLORIDE 0.9% 1,000 ML IV SCH (22:41)
[2024-10-15] MEDS: HEPARIN SODIUM,PORCINE 5,000 UNIT/ML 1 ML VIAL SQ SCH (22:43)
[2024-10-15] MEDS: SODIUM CHLORIDE 0.9% 500 ML 500 ML IV SCH (22:58)
[2024-10-15] MEDS: diazePAM 2 MG TAB PO PRN (23:18)
[2024-10-16 03:40] LABS: Potassium 2.8 mmol/L (3.5-5.1)
[2024-10-16] MEDS ORDERED: Potassium Replacement Protocol 1 EACH MISC MISCELLANE PRN (03:54)
[2024-10-16] MEDS: POTASSIUM CHLORIDE ER 20 MEQ TAB.ER PO SCH ×3 (04:39→18:23)
[2024-10-16] MEDS ORDERED: FUROSEMIDE 20 MG TAB PO SCH (09:00)
[2024-10-16] MEDS: MAGNESIUM OXIDE 400 MG TAB PO SCH (10:33)
[2024-10-16] MEDS: SERTRALINE 100 MG TAB PO SCH (10:33)
[2024-10-16] MEDS: polyethylene glycoL 3350 17 GM POWD.PACK PO SCH (10:34)
--- NOTE | 2024-10-16 11:09 | P.NPCON ---
History of Present Illness - Reason for Consult hypokalemia - History of Present Illness Reason for consultation: Hypokalemia History of present illness: Patient is a 69-year-old male seen in renal consultation for hypokalemia. Patient has history of MS. He is maintained on Lasix 60 mg once daily. Acco rding to the he is also been taking 20 milliequivalents of potassium supplementation daily. Last Friday patient had more swelling in his lower extremities and added metolazone. Blood work done at his primary care physician's office showed low potassium and increased the potassium supplementa tion to 30 mill equivalents daily. He had repeat blood work done Friday and again noted to have hypokalemia and was advised to come to the hospital. Potassium level was 2.5 on admission. GFR at baseline. Hemodynamically stable. No vomiting or diarrhea. Oral intake fair. No chest pain or shortness of breath. Denies history of diabetes or coronary artery disease. Has been voiding. Has chronic Yeager catheter. Vital signs are stable. General: No acute distress. HEENT: Head exam is unremarkable. LUNGS: No audible rhonchi or wheezes. HEART: Rate and Rhythm are regular. ABDOMEN: Nontender. EXTREMITITES: 1+ edema. Past Medical History Past Medical History: COPD, Musculoskeletal Disorder Additional Past Medical History / Comment(s): MS 2011 complete care, uses motorized wheelchair and is chair bound, uses liliana lift to transfer to commode chair. sometimes needs assists with feeding. complete ADL's. urinary ret ention with chronic catheter, uti. History of Any Multi-Drug Resistant Organisms: None Reported Past Surgical History: No Surgical Hx Reported Additional Past Surgical History / Comment(s): Pt states he has never had surgery. Past Anesthesia/Blood Transfusion Reactions: No Reported Reaction Additional Past Anesthesia/Blood Transfusion Reaction / Comment(s): Pt has clausterphobia. Past Psychological History: Depression Additional Psychological History / Comment(s): Lives at home with . He is wheelchair bound. Smoking Status: Former smoker Past Alcohol Use History: Occasional Additional Past Alcohol Use History / Comment(s): Pt started smoking in 1972 and quit in 2014. He drinks 3 beers a week Past Drug Use History: None Reported - Past Family History Mother Family Medical History: No Reported History Additional Family Medical History / Comment(s): Mother is healthy and 86yrs old. Father Family Medical History: No Reported History Additional Family Medical History / Comment(s): Father is 90 yrs old. Medications and Allergies Home Medications Medication Instructions Recorded Confirmed Type Potassium Chloride ER [K-Dur 10] 20 meq PO BID 11/20/20 10/15/24 History Sennosides [Senokot] 8.6 mg PO DAILY PRN 11/29/20 10/15/24 History Alendronate Sodium [Fosamax] 70 mg PO ALAMO 10/15/24 10/15/24 History Baclofen [Lioresal] 20 mg PO QID 10/15/24 10/15/24 History Furosemide [Lasix] 60 mg PO DAILY 10/15/24 10/15/24 History Laxative Gummy 1 tab PO QID PRN 10/15/24 10/15/24 History Magnesium 250 mg PO DAILY 10/15/24 10/15/24 History Potassium Chloride ER [K-Dur 10] 10 meq PO DAILY PRN 10/15/24 10/15/24 History Sertraline [Zoloft] 200 mg PO DAILY 10/15/24 10/15/24 History Vitamin E (Dl,Tocopheryl Acet) 400 unit PO DAILY 10/15/24 10/15/24 History [Vitamin E (400 Iu = 180 mg)] diazePAM [Valium] 2 mg PO TID PRN 10/15/24 10/15/24 History metOLazone [Zaroxolyn] 5 mg PO DAILY PRN 10/15/24 10/15/24 History polyethylene glycoL 3350 [Miralax] 17 gm PO DAILY 10/15/24 10/15/24 History Allergies Allergy/AdvReac Type Severity Reaction Status Date / Time No Known Allergies Allergy Verified 10/15/24 19:05 Physical Exam Vitals: Vital Signs Temp Pulse Pulse Resp BP BP Pulse Ox 10/16/24 07:00 97.7 F 62 18 125/78 96 10/16/24 00:02 97.6 F 68 18 125/80 94 L 10/15/24 20:40 97.9 F 73 18 135/87 96 10/15/24 19:49 98.5 F 64 17 117/77 98 10/15/24 19:13 63 18 119/79 97 10/15/24 17:09 97.8 F 67 18 124/83 97 Intake and Output 10/15/24 10/16/24 10/16/24 22:59 06:59 14:59 Intake Total 118 Output Total 1400 700 Balance -1400 -700 118 Intake: Oral 118 Output: Urine 1400 700 Other: Voiding Method Indwelling Catheter # Bowel Movements 1 Weight 81.647 kg Results - Lab Results Most recent lab results Calcium 9.8 mg/dL (8.4-10.2) 10/15/24 17:27 Magnesium 2.1 mg/dL (1.6-2.3) 10/15/24 17:27 10/15/24 17:27 10/16/24 09:07 Assessment and Plan Plan: Assessment: 1. Hypokalemia secondary to diuresis. Magnesium normal. Being replaced. 2. Hypovolemic hyponatremia. Improving. 3. History of MS. Plan: 80 milliequivalents of potassium supplementation today. Repeat potassium level this evening. Maintain Aldactone. Repeat potassium level this afternoon. Thank you for the consultation. I will continue to follow the patient with you during his hospital stay.
[2024-10-16] MEDS: POTASSIUM CHLORIDE ER 20 MEQ TAB.ER PO STA (11:16)
[2024-10-16] MEDS: VITAMIN E (DL,TOCOPHERYL ACET) 400 UNIT (180 MG) CAP PO SCH (11:17)
[2024-10-16] MEDS: SPIRONOLACTONE 25 MG TAB PO SCH (11:34)
--- NOTE | 2024-10-16 14:03 | P.HPIM ---
History of Present Illness H&P Date: 10/16/24 History of present illness: 69-year-old male patient with a past medical history significant for chronic lower extremity edema on Lasix, as needed Zaroxolyn, history of COPD, history of MS, motorized wheelchair dependent, urinary retention with chronic Yeager's catheter, history of UTIs who was sent to the hospital by PCP after patient's labs showed low potassium. Patient reported that patient has history of MS, patient has history of chronic lower extremity edema, takes Lasix 60 mg daily along with as needed Zaroxolyn, was taking Zaroxolyn for the last 3 days, patient also takes 20 mEq of potassium supplements daily. Patient had blood work done at the PCP office which showed low potassium, potassium supplement was increased to 30 mill equivalent daily. Repeat blood work done on Friday showed persistent hypokalemia and was advised to come to the hospital for further evaluation. Patient's potassium level on prior admission was 2.5, GFR was at baseline. Vital stable. Assessment and plan: Hypokalemia: Hypovolemic hyponatremia: Improving Chronic lower extremity edema: Sent by PCP after outpatient workup showed persistent hypokalemia Takes 60 mg Lasix daily along with as needed metolazone Potassium replacement protocol Monitor BMP closely Started Aldactone Nephrology consulted. History of MS Wheelchair-bound at baseline: DVT prophylaxis Subcutaneous heparin Monitor vital signs and labs Labs and medication were reviewed. Continue same treatment. Further recommendations as per clinical course of the patient PHYSICAL EXAMINATION: GENERAL: The patient is A&O x3, NAD HEENT: EOMI, Sclerae anicteric, Moist Mucous membranes Neck: Supple, Non tender, No JVD PULMONARY: Equal breath souds B/L, No wheezing, No crackles. CARDIOVASCULAR: S1, S2 present. No murmurs, rubs, or gallops. ABDOMEN: Soft, nontender, nondistended, normoactive bowel sounds. No guarding or rebound tenderness. MUSCULOSKELETAL: No edema, No cyanosis. No clubbing. Normal ROM. Intact peripheral pulses. NEUROLOGICAL: CN 2-12 grossly intact. No FND REVIEW OF SYSTEMS: CONSTITUTIONAL: No fever, no malaise, no fatigue. HEENT: No recent visual problems or hearing problems. Denied any sore throat. CARDIOVASCULAR: No chest pain, orthopnea, PND, no palpitations, no syncope. PULMONARY: No shortness of breath, no cough, no hemoptysis. GASTROINTESTINAL: No diarrhea, no nausea, no vomiting, no abdominal pain. NEUROLOGICAL: No headaches, no weakness, no numbness. HEMATOLOGICAL: Denies any bleeding or petechiae. GENITOURINARY: Denies any burning micturition, frequency, or urgency. MUSCULOSKELETAL/RHEUMATOLOGICAL: Denies any joint pain, swelling, or any muscle pain. ENDOCRINE: Denies any polyuria or polydipsia. The rest of the 14-point review of systems is negative. Dictation was produced using Pingboardation software. please excuse any grammatical, word or spelling errors. Past Medical History Past Medical History: COPD, Musculoskeletal Disorder Additional Past Medical History / Comment(s): MS 2011 dx,2020 complete care, uses motorized wheelchair and is chair bound, uses liliana lift to transfer to commode chair. sometimes needs assists with feeding. complete ADL's. urinary retention with chronic catheter, uti. History of Any Multi-Drug Resistant Organisms: None Reported Past Surgical History: No Surgical Hx Reported Additional Past Surgical History / Comment(s): Pt states he has never had surgery. Past Anesthesia/Blood Transfusion Reactions: No Reported Reaction Additional Past Anesthesia/Blood Transfusion Reaction / Comment(s): Pt has clausterphobia. Past Psychological History: Depression Additional Psychological History / Comment(s): Lives at home with . He is wheelchair bound. Smoking Status: Former smoker Past Alcohol Use History: Occasional Additional Past Alcohol Use History / Comment(s): Pt started smoking in 1972 and quit in 2014. He drinks 3 beers a week Past Drug Use History: None Reported - Past Family History Mother Family Medical History: No Reported History Additional Family Medical History / Comment(s): Mother is healthy and 86yrs old. Father Family Medical History: No Reported History Additional Family Medical History / Comment(s): Father is 90 yrs old. Medications and Allergies Home Medications Medication Instructions Recorded Confirmed Type Potassium Chloride ER [K-Dur 10] 20 meq PO BID 11/20/20 10/15/24 History Sennosides [Senokot] 8.6 mg PO DAILY PRN 11/29/20 10/15/24 History Alendronate Sodium [Fosamax] 70 mg PO ALAMO 10/15/24 10/15/24 History Baclofen [Lioresal] 20 mg PO QID 10/15/24 10/15/24 History Furosemide [Lasix] 60 mg PO DAILY 10/15/24 10/15/24 History Laxative Gummy 1 tab PO QID PRN 10/15/24 10/15/24 History Magnesium 250 mg PO DAILY 10/15/24 10/15/24 History Potassium Chloride ER [K-Dur 10] 10 meq PO DAILY PRN 10/15/24 10/15/24 History Sertraline [Zoloft] 200 mg PO DAILY 10/15/24 10/15/24 History Vitamin E (Dl,Tocopheryl Acet) 400 unit PO DAILY 10/15/24 10/15/24 History [Vitamin E (400 Iu = 180 mg)] diazePAM [Valium] 2 mg PO TID PRN 10/15/24 10/15/24 History metOLazone [Zaroxolyn] 5 mg PO DAILY PRN 10/15/24 10/15/24 History polyethylene glycoL 3350 [Miralax] 17 gm PO DAILY 10/15/24 10/15/24 History Allergies Allergy/AdvReac Type Severity Reaction Status Date / Time No Known Allergies Allergy Verified 10/15/24 19:05 Physical Exam Vitals: Vital Signs Temp Pulse Pulse Resp BP BP Pulse Ox 10/16/24 07:00 97.7 F 62 18 125/78 96 10/16/24 00:02 97.6 F 68 18 125/80 94 L 10/15/24 20:40 97.9 F 73 18 135/87 96 10/15/24 19:49 98.5 F 64 17 117/77 98 10/15/24 19:13 63 18 119/79 97 10/15/24 17:09 97.8 F 67 18 124/83 97 Intake and Output 10/15/24 10/16/24 10/16/24 22:59 06:59 14:59 Intake Total 118 Output Total 1400 700 Balance -1400 -700 118 Intake: Oral 118 Output: Urine 1400 700 Other: Voiding Method Indwelling Catheter # Bowel Movements 1 Weight 81.647 kg Results CBC & Chem 7: 10/15/24 17:27 10/16/24 09:07 Labs: Abnormal Lab Results - Last 24 Hours (Table) 10/15/24 10/15/24 10/16/24 Range/Units 17:27 17:27 02:55 WBC 10.77 H (4.50-10.00) 10*3/uL Immature Gran # 0.07 H (0.00-0.04) 10*3/uL Neutrophils # 7.91 H (1.80-7.70) 10*3/uL Monocytes # 1.26 H (0.20-1.00) 10*3/uL Sodium 129 L 131 L (137-145) mmol/L Potassium 2.5 L* 2.8 L (3.5-5.1) mmol/L Chloride 85 L (98-107) mmol/L Carbon Dioxide 31 H (22-30) mmol/L Glucose 109 H (74-99) mg/dL 10/16/24 Range/Units 09:07 WBC (4.50-10.00) 10*3/uL Immature Gran # (0.00-0.04) 10*3/uL Neutrophils # (1.80-7.70) 10*3/uL Monocytes # (0.20-1.00) 10*3/uL Sodium (137-145) mmol/L Potassium 2.8 L (3.5-5.1) mmol/L Chloride (98-107) mmol/L Carbon Dioxide (22-30) mmol/L Glucose (74-99) mg/dL Thrombosis Risk Factor Assmnt - Choose All That Apply Any of the Below Risk Factors Present?: Yes Each Factor Represents 1 point: Obesity (BMI >25), Swollen legs (current) Other Risk Factors: Yes Each Risk Factor Represents 2 Points: Age 61-74 years Other congenital or acquired thrombophilia - If yes, enter type in comment: No Thrombosis Risk Factor Assessment Total Risk Factor Score: 4 Thrombosis Risk Factor Assessment Level: Moderate Risk
[2024-10-16 19:33] VITALS: RESP 17
[2024-10-17 01:36] VITALS: PULSE 62
[2024-10-17] MEDS: NON FORMULARY DRUG (Alendronate Sodium [Fosamax] 70 MG Tablet) PO SCH (06:15)
[2024-10-17 08:34] VITALS: BP 122/82; TEMP 97.8
[2024-10-17 10:19] LABS: BUN/Creat Ratio 16.36 Ratio (12.00-20.00); Calcium 9.3 mg/dL (8.7-10.3); Carbon Dioxide 24.9 mmol/L (21.6-31.8); Chloride 100 mmol/L (96-109); Glucose 110 mg/dL (70-110); Magnesium 2.1 mg/dL (1.5-2.4); Potassium 3.4 mmol/L (3.5-5.5); Sodium 139 mmol/L (135-145)
--- NOTE | 2024-10-17 11:38 | P.DS ---
Providers Date of admission: 10/15/24 19:09 Attending physician: Antony Sharma Consults: 10/16/24 10:10 Consult Physician Routine Consulting Provider: Kati Michelle Consult Reason/Comments: Hypokalemia Do you want consulting provider notified?: Yes Primary care physician: Shawn Galarza [facility] Course: Discharge diagnoses: Hypokalemia: Hypovolemic hyponatremia: Improving Chronic lower extremity edema: Sent by PCP after outpatient workup showed persistent hypokalemia Takes 60 mg Lasix daily along with as needed metolazone Potassium was monitored and replaced as needed during hospitalization. Nephrology consulted. Added Aldactone. Continued on Lasix 40 mg daily at discharge, discontinue metolazone, continued on potassium replacement 40 mill equivalent daily at discharge Repeat BMP to be checked by PCP in 1 week. History of MS Wheelchair-bound at baseline: Hospital course: 69-year-old male patient with a past medical history significant for chronic lower extremity edema on Lasix, as needed Zaroxolyn, history of COPD, history of MS, motorized wheelchair dependent, urinary retention with chronic Yeager's catheter, history of UTIs who was sent to the hospital by PCP after patient's labs showed low potassium. Patient reported that patient has history of MS, patient has history of chronic lower extremity edema, takes Lasix 60 mg mode ly along with as needed Zaroxolyn, was taking Zaroxolyn for the last 3 days, patient also takes 20 mEq of potassium supplements daily. Patient had blood work done at the PCP office which showed low potassium, potassium supplement was increased to 30 mill equivalent daily. Repeat blood work done on Friday showed persistent hypokalemia and was advised to come to the hospital for further evaluation. Patient's potassium level on prior admission was 2.5, GFR was at baseline. Vital stable. Patient was admitted to hospital for further eval for management of hypokalemia. Diuretics were held. Potassium was monitored and replaced per protocol during hospitalization. Nephrology consulted. Aldactone added. Patient's potassium gradually improved. Patient continued on Lasix 40 mg daily at discharge, Zaroxolyn discontinued, continued on 40 mg daily potassium replacement at discharge, repeat BMP to be checked by PCP in 1 week. PHYSICAL EXAMINATION: GENERAL: The patient is A&O x3, NAD HEENT: EOMI, Sclerae anicteric, Moist Mucous membranes Neck: Supple, Non tender, No JVD PULMONARY: Equal breath souds B/L, No wheezing, No crackles. CARDIOVASCULAR: S1, S2 present. No murmurs, rubs, or gallops. ABDOMEN: Soft, nontender, nondistended, normoactive bowel sounds. No guarding or rebound tenderness. MUSCULOSKELETAL: No edema, No cyanosis. No clubbing. Normal ROM. Intact peripheral pulses. NEUROLOGICAL: CN 2-12 grossly intact. No FND SKIN: No rashes. Dictation was produced using [employer] dictation software. please excuse any grammatical, word or spelling errors. Patient Condition at Discharge: Stable Plan - Discharge Summary New Discharge Prescriptions: New Spironolactone [Aldactone] 25 mg PO DAILY #30 tab Continue Sennosides [Senokot] 8.6 mg PO DAILY PRN PRN Reason: Constipation Sertraline [Zoloft] 200 mg PO DAILY Baclofen [Lioresal] 20 mg PO QID Alendronate Sodium [Fosamax] 70 mg PO ALAMO polyethylene glycoL 3350 [Miralax] 17 gm PO DAILY Vitamin E (Dl,Tocopheryl Acet) [Vitamin E (400 Iu = 180 mg)] 400 unit PO DAILY Magnesium 250 mg PO DAILY Laxative Gummy 1 tab PO QID PRN PRN Reason: Constipation Potassium Chloride ER [K-Dur 10] 20 meq PO BID diazePAM [Valium] 2 mg PO TID PRN PRN Reason: Muscle Spasm Potassium Chloride ER [K-Dur 10] 10 meq PO DAILY PRN PRN Reason: W/METOLAZONE Changed Furosemide [Lasix] 2 tab PO DAILY #60 Discontinued metOLazone [Zaroxolyn] 5 mg PO DAILY PRN PRN Reason: Edema Discharge Medication List Potassium Chloride ER [K-Dur 10] 20 meq PO BID 11/20/20 [History] Sennosides [Senokot] 8.6 mg PO DAILY PRN 11/29/20 [History] Alendronate Sodium [Fosamax] 70 mg PO ALAMO 10/15/24 [History] Baclofen [Lioresal] 20 mg PO QID 10/15/24 [History] Laxative Gummy 1 tab PO QID PRN 10/15/24 [History] Magnesium 250 mg PO DAILY 10/15/24 [History] Potassium Chloride ER [K-Dur 10] 10 meq PO DAILY PRN 10/15/24 [History] Sertraline [Zoloft] 200 mg PO DAILY 10/15/24 [History] Vitamin E (Dl,Tocopheryl Acet) [Vitamin E (400 Iu = 180 mg)] 400 unit PO DAILY 10/15/24 [History] diazePAM [Valium] 2 mg PO TID PRN 10/15/24 [History] polyethylene glycoL 3350 [Miralax] 17 gm PO DAILY 10/15/24 [History] Furosemide [Lasix] 2 tab PO DAILY #60 10/17/24 [Rx] Spironolactone [Aldactone] 25 mg PO DAILY #30 tab 10/17/24 [Rx] Follow up Appointment(s)/Referral(s): Shawn Galarza DO [Primary Care Provider] - 1-2 days Discharge Disposition: HOME SELF-CARE
--- NOTE | 2024-10-17 11:44 | P.PN ---
Subjective Patient is seen in follow-up for hypokalemia. Potassium level better. Has been voiding. Has chronic Yeager catheter. Denies chest pain or shortness of breath. Vital signs are stable. General: No acute distress. HEENT: Head exam is unremarkable. LUNGS: No audible rhonchi or wheezes. HEART: Rate and Rhythm are regular. ABDOMEN: Nontender. EXTREMITITES: Trace edema in ankles. Objective - Vital Signs Vital signs: Vital Signs Temp 97.8 F 10/17/24 07:00 Pulse 62 10/17/24 07:00 Resp 17 10/17/24 07:00 BP 122/82 10/17/24 07:00 Pulse Ox 97 10/17/24 07:00 FiO2 Intake & Output 10/16/24 10/17/24 10/17/24 18:59 06:59 18:59 Intake Total 354 358 Output Total 1800 1300 Balance -1446 -1300 358 Intake: Oral 354 358 Output: Urine 1800 1300 Other: Voiding Method Indwelling Catheter # Bowel Movements 1 - Labs CBC & Chem 7: 10/15/24 17:27 10/17/24 04:14 Labs: Abnormal Lab Results - Last 24 Hours (Table) 10/16/24 10/17/24 Range/Units 16:23 04:14 Potassium 3.1 L 3.4 L (3.5-5.1) mmol/L Anion Gap 14.10 H (4.00-12.00) mmol/L Assessment and Plan Plan: Assessment: 1. Hypokalemia secondary to diuresis. Magnesium normal. Being replaced. Better. 2. Hypovolemic hyponatremia. Improved. 3. History of MS. Plan: 40 milliequivalents of potassium supplementation today. Can resume Lasix 40 mg orally once daily upon discharge along with Aldactone and 20 milliequivalents of potassium supplementation per day. Repeat BMP and magnesium level 2 to 3 days postdischarge. Patient will see their primary care physician this week and also follow-up in our office in the next 1 to 2 weeks.
[2024-10-17] MEDS: POTASSIUM CHLORIDE ER 20 MEQ TAB.ER PO STA (12:47)
[2024-10-18] MEDS ORDERED: POTASSIUM CHLORIDE ER 20 MEQ TAB.ER PO SCH (09:00)
== END 2024-10-17 13:40 | disposition home or self-care (01) ==
LOC: EC 17:03 → 6NMEDSUR 19:09
PROVIDERS: ADMIT Hospitalist; ATTEND Hospitalist
DX: E87.6 Hypokalemia (principal); E86.1 Hypovolemia; E87.1 Hypo-osmolality and hyponatremia; R60.0 Localized edema; J44.9 Chronic obstructive pulmonary disease, unspecified; F32.A Depression, unspecified; G35 Multiple sclerosis; Z87.891 Personal history of nicotine dependence; Z99.3 Dependence on wheelchair; Z79.83 Long term (current) use of bisphosphonates; Z79.899 Other long term (current) drug therapy
CPT/HCPCS: 96366; 96372 ×2; 96365; 99285; 36415; 93005; 80053; 80048; 83735 ×2; 84132; 84295; 85025; G0378 ×3; J1644 ×2; J3480

== ENCOUNTER → 2024-12-24 | Outpatient (CLI) | payer MEDICARE, BC ==
[2024-12-24 13:17] VITALS: BP 165/90; PULSE 70; RESP 16; TEMP 98.4
[2024-12-24] MEDS: DENOSUMAB 60 MG/ML 1 ML SYRINGE SQ NR (13:17)
== END ==
LOC: PROCWHC3 12:59
PROVIDERS: ATTEND Family Medicine
DX: M81.0 Age-related osteoporosis without current pathological fracture (principal)
CPT/HCPCS: 96372; J0897

== ENCOUNTER → 2025-01-05 | Outpatient (CLI) | payer MEDICARE, BC ==
--- NOTE | 2025-01-05 14:24 | US ---
EXAMINATION TYPE: US kidneys/renal and bladder DATE OF EXAM: 01/05/2025 COMPARISON: US 12/11/2022 CLINICAL INDICATION: Male, 69 years old with history of N32.81 OVERACTIVE BLADDER; Overactive bladder per order. TECHNIQUE: Grayscale imaging of the bilateral kidneys and urinary bladder: FINDINGS: EXAM MEASUREMENTS: Right Kidney: 9.8 x 4.6 x 4.8 cm Left Kidney: 11.9 x 5.8 x 6.1 cm Exam is limited. Patient scanned in chair. Right Kidney: Hyperechoic focus with shadowing seen lower pole: 0.8 x 0.7 x 0.4 cm. Renal pelvis agusto ears dilated. Left Kidney: No hydronephrosis or masses seen Difficult to evaluate. Bladder: *Not visualized. Patient has catheter Bilateral Jets seen: No : No hydronephrosis identified. Prominent right extrarenal pelvis. Nonobstructing right renal lower rani e calculus. No shadowing left renal calculi. No definitive renal mass is identified. Urinary bladder is not visualized due to Yeager catheter placement. IMPRESSION: 1. No hydronephrosis. 2. Nonobstructing right renal calculus. [facility], , 01/05/2025 2:22 PM
== END | disposition home or self-care (01) ==
LOC: RADUSWWP 13:27
PROVIDERS: ATTEND Urology
DX: N32.81 Overactive bladder (principal); N20.0 Calculus of kidney; Z87.440 Personal history of urinary (tract) infections
CPT/HCPCS: 76770